=== PATIENT | female | born 1940 | race Caucasian/White ===

== ENCOUNTER 2019-02-16 18:05 | Observation (INO) ==
[2019-02-16] MEDS ORDERED: ENOXAPARIN 30 MG/0.3 ML SYRINGE SUBCUT STA (18:46)
[2019-02-16] MEDS ORDERED: ASPIRIN 325 MG TABLET PO STA (18:46)
[2019-02-16] MEDS ORDERED: NITROGLYCERIN 2% OINT 1 INCH/GM PACK TOP STA (18:47)
[2019-02-16 20:15] LABS: Alanine Aminotransferase 22 U/L (13-56); Albumin 3.1 G/DL (3.4-5.0); Alkaline Phosphatase 92 U/L (45-117); Aspartate Amino Transferase 16 U/L (0-37); Bilirubin,Total < 0.39 MG/DL (0.2-1.0); Blood Urea Nitrogen 22 MG/DL (7-18); Calcium 8.8 MG/DL (8.5-10.1); Glucose 114 MG/DL (74-106); Osmolality,Calculated 282.4 MOS/KG (273-304)
[2019-02-16 20:16] LABS: Basophils # 0.1 10*3/uL (0.0-0.2); Basophils % 0.6 % (0.0-0.8); Eosinophils # 0.3 10*3/uL (0.0-0.87); Eosinophils % 2.8 % (0.00-10.9); Hematocrit 30.5 VOL% (35.7-47.0); Hemoglobin 8.5 GM/DL (12.0-16.0); Immature Granulocytes % 0.7 %; Immature Granulocytes Absolute 0.07 #; Lymphocytes # 3.1 10*3/uL (1.4-4.0); Lymphocytes % 29.8 % (21.3-54.2); Mean Corpuscular HGB Conc 27.9 GM/DL (32-36); Mean Corpuscular Volume 84.5 FL (87-102); Mean Platelet Volume 10.3 FL (9.6-12.0); Monocytes % 7.6 % (1.7-12.7); NRBC # 0.03 10*3/uL; Neutrophils % 58.5 % (38.7-73.9); Platelet Count 378 T/CUMM (130-400); Red Blood Count 3.61 MC/CUMM (3.8-5.5); White Blood Count 10.4 T/CUMM (4-12)
[2019-02-16 20:33] LABS: Anisocytosis 1+; Hypochromasia 2+
[2019-02-16 20:34] LABS: Polychromasia 1+
[2019-02-16 20:35] LABS: Ovalocytes Few
[2019-02-16 20:39] LABS: Platelet Estimate Normal
[2019-02-16] MEDS ORDERED: ONDANSETRON 4 MG/2 ML VIAL IV PRN (20:44)
[2019-02-16] MEDS ORDERED: ACETAMINOPHEN 325 MG TABLET PO PRN (20:44)
[2019-02-16] MEDS ORDERED: PANTOPRAZOLE 40 MG TABLET PO PRN (20:51)
[2019-02-16] MEDS ORDERED: ALBUTEROL 2.5 MG/3 ML NEB RESP TX PRN (20:51)
[2019-02-16] MEDS ORDERED: ONDANSETRON 4 MG TABLET PO PRN (20:51)
[2019-02-16] MEDS: GABAPENTIN 600 MG TABLET PO SCH (22:48)
[2019-02-16] MEDS: PRAMIPEXOLE 0.25 MG TABLET PO SCH (22:48)
[2019-02-16] MEDS: CARVEDILOL 6.25 MG TABLET PO SCH (22:48)
[2019-02-16] MEDS: BUDESONIDE/FORMOTEROL 160-4.5 INHALER 6 GM INH SCH (23:40)
[2019-02-17] MEDS: ENOXAPARIN 100 MG/ML SYRINGE SUBCUT SCH ×2 (05:01→08:49)
[2019-02-17 05:08] LABS: Risk Ratio 2.51; VLDL CHOLESTEROL 35.6 MG/DL
[2019-02-17] MEDS ORDERED: LEVOTHYROXINE 50 MCG TABLET PO SCH (06:00)
[2019-02-17 08:11] VITALS: BP 116/57
[2019-02-17] MEDS: GABAPENTIN 600 MG TABLET PO SCH (08:50)
[2019-02-17] MEDS: PRAMIPEXOLE 0.25 MG TABLET PO SCH (08:50)
[2019-02-17] MEDS: CARVEDILOL 6.25 MG TABLET PO SCH (08:50)
[2019-02-17] MEDS ORDERED: ATORVASTATIN 80 MG TABLET PO SCH (09:00)
[2019-02-17] MEDS ORDERED: LOSARTAN 25 MG TABLET PO SCH (09:00)
[2019-02-17] MEDS ORDERED: ASPIRIN EC 325 MG TABLET PO SCH (09:00)
[2019-02-17] MEDS ORDERED: hydroCHLOROthiazide 25 MG TABLET PO SCH (09:00)
[2019-02-17] MEDS ORDERED: DILTIAZEM CD 240 MG CAPSULE PO SCH (09:00)
[2019-02-17] MEDS: BUDESONIDE/FORMOTEROL 160-4.5 INHALER 6 GM INH SCH (10:05)
[2019-02-18] MEDS ORDERED: NITROGLYCERIN 2% OINT 1 INCH/GM PACK TOP SCH (02:00)
== END 2019-02-17 10:58 | disposition home or self-care (01) ==
LOC: N.TELEN 18:05 → N.ED 18:05 → N.TELEN 22:04
PROVIDERS: ADMIT Internal Medicine; ATTEND Internal Medicine

== ENCOUNTER 2019-06-12 18:15 | Inpatient (IN) ==
[2019-06-12] MEDS ORDERED: ONDANSETRON 4 MG/2 ML VIAL IV STA (19:34)
[2019-06-12 20:33] LABS: Basophils # 0.1 10*3/uL (0.0-0.2); Basophils % 0.8 % (0.0-0.8); Eosinophils # 0.2 10*3/uL (0.0-0.87); Eosinophils % 1.9 % (0.00-10.9); Hematocrit 26.3 VOL% (35.7-47.0); Immature Granulocytes % 0.5 %; Immature Granulocytes Absolute 0.06 #; Lymphocytes # 3.5 10*3/uL (1.4-4.0); Lymphocytes % 28.5 % (21.3-54.2); Mean Corpuscular HGB Conc 23.6 GM/DL (32-36); Mean Corpuscular Volume 73.1 FL (87-102); Mean Platelet Volume 10.7 FL (9.6-12.0); Monocytes % 7.6 % (1.7-12.7); NRBC # 0.13 10*3/uL; Neutrophils % 60.7 % (38.7-73.9); Platelet Count 357 T/CUMM (130-400); Red Cell Distribution Width 21.2 % (9.3-17.3); White Blood Count 12.2 T/CUMM (4-12)
[2019-06-12 20:45] LABS: Albumin 2.8 G/DL (3.4-5.0); Bilirubin,Total 0.5 MG/DL (0.2-1.0); Calcium 8.4 MG/DL (8.5-10.1); Total Protein 5.8 G/DL (6.4-8.3)
[2019-06-12 20:47] LABS: Hemoglobin 6.2 GM/DL (12.0-16.0); Troponin I < 0.015 NG/ML (0.00-0.045)
[2019-06-12] MEDS ORDERED: PHENYLEPHRINE DRIP 40 MG/250 ML PREMIX IV PRN (20:54)
[2019-06-12 21:02] LABS: Apearance,Urine CLEAR (Clear); Bacteria,Urine Few /HPF (Few); Bilirubin,Urine Negative (Negative); Blood, Urine Negative (Negative); Glucose,Urine (UA) Negative (Negative); Hyaline Casts,Urine 70 /LPF (0-3); Ketones,Urine Negative (Negative); Mucus,Urine Occasional /LPF (Occasional); Nitrite,Urine Positive (Negative); Protein,Urine Negative; RBC,Urine 1 /HPF (0-4); Squamous Epithelial Cell,Urine Occasional /HPF (0-10); Urine Color Yellow (Yellow); Urine Specific Gravity 1.013 (1.001-1.035); Urine Urobilinogen < 2.0 EU/DL (0.2-1.0); WBC,Urine 1 /HPF (0-6)
[2019-06-12 21:06] LABS: INR 1.1; PT Patient Result 11.4 SECS (9.6-12.2)
[2019-06-12] MEDS ORDERED: cefTRIAXone 1,000 MG in SODIUM CHLORIDE 0.9% 100 ML IV STA (21:18)
[2019-06-12 21:34] LABS: ABG Base Excess 14.1 MMOL/L (-2.5-2.5); ABG HCO3 43.4 MMOL/L (20-26); ABG Oxygen Saturation 91.7 % (95-100); ABG PH 7.239 (7.35-7.45); ABG PO2 78.2 MM HG (80-95); ABG TCO2 46.6 MMOL/L (23-27); Allen Test Positive
[2019-06-12 21:37] LABS: ABG PCO2 103.9 MM HG (35-48)
[2019-06-12] MEDS ORDERED: MORPHINE 4 MG/1 ML VIAL IV PRN (22:00)
[2019-06-12] MEDS ORDERED: ONDANSETRON 4 MG/2 ML VIAL IV PRN (22:00)
[2019-06-12] MEDS ORDERED: NICOTINE 21 MG/24 HR PATCH TRANSDERM PRN (22:00)
[2019-06-12] MEDS ORDERED: diphenhydrAMINE CAP 25 MG CAPSULE PO PRN (22:00)
[2019-06-12] MEDS ORDERED: SODIUM CHLORIDE 0.9% 1,000 ML IV PRN (22:00)
[2019-06-12] MEDS ORDERED: guaiFENesin/DM ER 600-30 MG TABLET PO PRN (22:00)
[2019-06-12 22:30] LABS: Anisocytosis 1+; Hypochromasia 3+; Microcytosis 2+; Platelet Estimate Normal; Poikilocytosis 2+
[2019-06-12 22:31] LABS: Ovalocytes 1+; Polychromasia 2+; Stomatocytes 1+
[2019-06-12 22:32] LABS: Schistocytes Few; Tear Drop Cells Few
[2019-06-12] MEDS ORDERED: ETOMIDATE 20 MG/10 ML VIAL IV ONE (22:53)
[2019-06-12] MEDS ORDERED: VECURONIUM 10 MG VIAL IV ONE (22:53)
[2019-06-12] MEDS ORDERED: PROPOFOL 1,000 MG/100 ML BOTTLE IV ONE (23:28)
[2019-06-12] MEDS: PROPOFOL 1,000 MG/100 ML BOTTLE IV SCH (23:33)
[2019-06-12 23:41] LABS: ABG Base Excess 15.2 MMOL/L (-2.5-2.5); ABG HCO3 39.1 MMOL/L (20-26); ABG PCO2 54.9 MM HG (35-48); ABG PH 7.478 (7.35-7.45); ABG TCO2 38.7 MMOL/L (23-27); Allen Test Positive; Pt O2 Delivery Device Ventilator
[2019-06-13] MEDS: FUROSEMIDE 40 MG/4 ML VIAL IV SCH ×3 (00:19→15:38)
[2019-06-13 00:31] LABS: Hematocrit 25.2 VOL% (35.7-47.0); Hemoglobin 6.9 GM/DL (12.0-16.0); Mean Corpuscular HGB Conc 27.4 GM/DL (32-36); Mean Corpuscular Volume 75.4 FL (87-102); Mean Platelet Volume 11.5 FL (9.6-12.0); NRBC # 0.09 10*3/uL; Platelet Count 318 T/CUMM (130-400); Red Blood Count 3.34 MC/CUMM (3.8-5.5); Red Cell Distribution Width 21.4 % (9.3-17.3); White Blood Count 9.2 T/CUMM (4-12)
[2019-06-13] MEDS: ALBUTEROL/IPRATROPIUM 3 ML NEB RESP TX SCH ×4 (00:36→19:17)
[2019-06-13] MEDS: AZITHROMYCIN INJ 500 MG in SODIUM CHLORIDE 0.9% 250 ML IV SCH (00:38)
[2019-06-13 01:33] LABS: Apearance,Urine CLEAR (Clear); Bilirubin,Urine Negative (Negative); Blood, Urine Negative (Negative); Glucose,Urine (UA) Negative (Negative); Hyaline Casts,Urine 4 /LPF (0-3); Ketones,Urine Negative (Negative); Mucus,Urine Occasional /LPF (Occasional); Nitrite,Urine Negative (Negative); Protein,Urine Negative; RBC,Urine 1 /HPF (0-4); Squamous Epithelial Cell,Urine Occasional /HPF (0-10); Urine Color Colorless (Yellow); Urine Specific Gravity 1.005 (1.001-1.035); Urine Urobilinogen < 2.0 EU/DL (0.2-1.0); WBC,Urine <1 /HPF (0-6)
[2019-06-13] MEDS ORDERED: INFLUENZA VIRUS VACCINE 0.5 ML SYRINGE IM ONE (01:35)
[2019-06-13] MEDS: MEROPENEM 500 MG in SODIUM CHLORIDE 0.9% 100 ML IV SCH ×4 (02:02→17:53)
[2019-06-13] MEDS: VANCOMYCIN INJ 1,750 MG in SODIUM CHLORIDE 0.9% 500 ML IV SCH ×2 (03:11→15:11)
[2019-06-13 03:28] LABS: ABG Base Excess 16.3 MMOL/L (-2.5-2.5); ABG HCO3 40.3 MMOL/L (20-26); ABG Oxygen Saturation 99.2 % (95-100); ABG PCO2 51.5 MM HG (35-48); ABG PH 7.515 (7.35-7.45); ABG TCO2 38.7 MMOL/L (23-27); Allen Test Positive; Pt O2 Delivery Device Ventilator
[2019-06-13] MEDS: fentaNYL INJ 1,250 MCG in SODIUM CHLORIDE 0.9% 225 ML IV PRN ×2 (03:45→13:20)
[2019-06-13 05:23] LABS: Albumin 2.6 G/DL (3.4-5.0); Bilirubin,Total 0.8 MG/DL (0.2-1.0); Calcium 8.7 MG/DL (8.5-10.1); Osmolality,Calculated 284.1 MOS/KG (273-304); Total Protein 6.2 G/DL (6.4-8.3)
[2019-06-13 05:44] LABS: Basophils # 0.1 10*3/uL (0.0-0.2); Basophils % 0.5 % (0.0-0.8); Eosinophils # 0.2 10*3/uL (0.0-0.87); Eosinophils % 1.5 % (0.00-10.9); Hematocrit 30.1 VOL% (35.7-47.0); Hemoglobin 7.8 GM/DL (12.0-16.0); Immature Granulocytes % 0.7 %; Immature Granulocytes Absolute 0.08 #; Lymphocytes # 3.9 10*3/uL (1.4-4.0); Lymphocytes % 32.9 % (21.3-54.2); Mean Corpuscular HGB Conc 25.9 GM/DL (32-36); Mean Corpuscular Volume 73.6 FL (87-102); Mean Platelet Volume 11.6 FL (9.6-12.0); Monocytes % 6.8 % (1.7-12.7); NRBC # 0.11 10*3/uL; Neutrophils % 57.6 % (38.7-73.9); Platelet Count 304 T/CUMM (130-400); Red Blood Count 4.09 MC/CUMM (3.8-5.5); Red Cell Distribution Width 21.2 % (9.3-17.3); White Blood Count 11.8 T/CUMM (4-12)
[2019-06-13 05:47] LABS: Hypochromasia 2+; Platelet Estimate Adequate
[2019-06-13 05:48] LABS: Ovalocytes Slight
[2019-06-13 06:50] LABS: Folate 17.7 NG/ML (5.4-24.0); Vitamin B12 387 PG/ML (211-911)
[2019-06-13] MEDS: PROPOFOL 1,000 MG/100 ML BOTTLE IV SCH ×3 (06:55→23:32)
[2019-06-13 08:20] LABS: Sedimentation Rate-Westergren 21 MM/HR (0-30)
[2019-06-13] MEDS: methylPREDNISolone SOD SUC 40 MG/1 ML VIAL IV SCH ×2 (08:45→15:43)
[2019-06-13] MEDS: ENOXAPARIN 40 MG/0.4 ML SYRINGE SUBCUT SCH (08:54)
[2019-06-13] MEDS: FAMOTIDINE 20 MG/2 ML VIAL IV SCH ×2 (08:54→21:17)
[2019-06-13] MEDS ORDERED: fentaNYL INJ 1,250 MCG in SODIUM CHLORIDE 0.9% 225 ML IV PRN (12:54)
[2019-06-13] MEDS ORDERED: cefTRIAXone 1,000 MG in SYRINGE 1 EACH IV SCH (22:00)
[2019-06-14] MEDS: ALBUTEROL/IPRATROPIUM 3 ML NEB RESP TX SCH ×4 (00:23→20:59)
[2019-06-14] MEDS: MEROPENEM 500 MG in SODIUM CHLORIDE 0.9% 100 ML IV SCH ×2 (00:24→06:25)
[2019-06-14] MEDS: AZITHROMYCIN INJ 500 MG in SODIUM CHLORIDE 0.9% 250 ML IV SCH (00:25)
[2019-06-14] MEDS: methylPREDNISolone SOD SUC 40 MG/1 ML VIAL IV SCH ×3 (00:25→16:29)
[2019-06-14] MEDS: VANCOMYCIN INJ 1,750 MG in SODIUM CHLORIDE 0.9% 500 ML IV SCH (03:28)
[2019-06-14 04:34] LABS: ABG Base Excess 13.4 MMOL/L (-2.5-2.5); ABG HCO3 36.9 MMOL/L (20-26); ABG Oxygen Saturation 97.6 % (95-100); ABG PCO2 42.3 MM HG (35-48); ABG PH 7.559 (7.35-7.45); ABG PO2 96.4 MM HG (80-95); ABG TCO2 38.2 MMOL/L (23-27); Allen Test Positive; Pt O2 Delivery Device Ventilator
[2019-06-14 05:10] LABS: Basophils % 0.1 % (0.0-0.8); Hematocrit 35.4 VOL% (35.7-47.0); Immature Granulocytes % 0.4 %; Immature Granulocytes Absolute 0.04 #; Lymphocytes # 1.4 10*3/uL (1.4-4.0); Lymphocytes % 13.2 % (21.3-54.2); Mean Corpuscular HGB Conc 28.2 GM/DL (32-36); Mean Corpuscular Volume 73.3 FL (87-102); Mean Platelet Volume 11.3 FL (9.6-12.0); Monocytes % 3.9 % (1.7-12.7); NRBC # 0.06 10*3/uL; Neutrophils % 82.4 % (38.7-73.9); Platelet Count 283 T/CUMM (130-400); Red Blood Count 4.83 MC/CUMM (3.8-5.5); Red Cell Distribution Width 23.1 % (9.3-17.3); White Blood Count 10.6 T/CUMM (4-12)
[2019-06-14 05:19] LABS: Hypochromasia 1+; Platelet Estimate Adequate
[2019-06-14 05:20] LABS: Calcium 8.6 MG/DL (8.5-10.1); Osmolality,Calculated 291.1 MOS/KG (273-304)
[2019-06-14] MEDS: POTASSIUM CHLORIDE RIDER 10 MEQ in PREMIX 1 EACH IV PRN ×3 (05:48→07:55)
[2019-06-14] MEDS: FAMOTIDINE 20 MG/2 ML VIAL IV SCH ×2 (07:46→20:09)
[2019-06-14] MEDS: FUROSEMIDE 40 MG/4 ML VIAL IV SCH ×2 (07:48→16:25)
[2019-06-14] MEDS: ENOXAPARIN 40 MG/0.4 ML SYRINGE SUBCUT SCH (07:55)
[2019-06-14] MEDS: AZITHROMYCIN 250 MG TABLET PO SCH (09:50)
[2019-06-14] MEDS: POTASSIUM CHLORIDE 20 MEQ TABLET PO SCH ×3 (09:50→16:30)
[2019-06-14] MEDS: ATORVASTATIN 80 MG TABLET PO SCH (09:50)
[2019-06-14] MEDS: LOSARTAN 25 MG TABLET PO SCH (09:50)
[2019-06-14] MEDS: cefTRIAXone 1,000 MG in SYRINGE 1 EACH IV SCH (09:51)
[2019-06-14] MEDS: GABAPENTIN 600 MG TABLET PO SCH (20:13)
[2019-06-14] MEDS: PRAMIPEXOLE 0.25 MG TABLET PO SCH (20:13)
[2019-06-15] MEDS: ALBUTEROL/IPRATROPIUM 3 ML NEB RESP TX SCH ×4 (01:27→18:44)
[2019-06-15] MEDS: methylPREDNISolone SOD SUC 40 MG/1 ML VIAL IV SCH ×3 (01:38→20:16)
[2019-06-15 06:01] LABS: Calcium 8.8 MG/DL (8.5-10.1); Osmolality,Calculated 300.7 MOS/KG (273-304)
[2019-06-15 06:28] LABS: Basophils % 0.1 % (0.0-0.8); Hemoglobin 10.4 GM/DL (12.0-16.0); Immature Granulocytes % 0.9 %; Immature Granulocytes Absolute 0.14 #; Lymphocytes # 1.1 10*3/uL (1.4-4.0); Lymphocytes % 6.6 % (21.3-54.2); Mean Corpuscular HGB Conc 26.6 GM/DL (32-36); Mean Corpuscular Volume 78.4 FL (87-102); Monocytes % 3.7 % (1.7-12.7); NRBC # 0.08 10*3/uL; Neutrophils % 88.7 % (38.7-73.9); Platelet Count 303 T/CUMM (130-400); Red Blood Count 4.99 MC/CUMM (3.8-5.5); Red Cell Distribution Width 23.2 % (9.3-17.3); White Blood Count 16.1 T/CUMM (4-12)
[2019-06-15 06:29] LABS: Hematocrit 39.1 VOL% (35.7-47.0)
[2019-06-15 06:31] LABS: Elliptocytes 1+; Hypochromasia 1+; Platelet Estimate Normal; Stomatocytes Few; Target Cells Few
[2019-06-15 06:32] LABS: Schistocytes Few
[2019-06-15] MEDS: DOCUSATE SODIUM 100 MG CAPSULE PO PRN (09:36)
[2019-06-15] MEDS: GABAPENTIN 600 MG TABLET PO SCH ×3 (09:37→20:14)
[2019-06-15] MEDS: AZITHROMYCIN 250 MG TABLET PO SCH (09:37)
[2019-06-15] MEDS: LOSARTAN 25 MG TABLET PO SCH (09:37)
[2019-06-15] MEDS: ATORVASTATIN 80 MG TABLET PO SCH (09:38)
[2019-06-15] MEDS: PRAMIPEXOLE 0.25 MG TABLET PO SCH ×3 (09:38→20:14)
[2019-06-15] MEDS: PANTOPRAZOLE 40 MG TABLET PO SCH (09:39)
[2019-06-15] MEDS: FUROSEMIDE 40 MG/4 ML VIAL IV SCH ×2 (09:39→16:35)
[2019-06-15] MEDS: cefTRIAXone 1,000 MG in SYRINGE 1 EACH IV SCH (09:43)
[2019-06-15] MEDS: ENOXAPARIN 40 MG/0.4 ML SYRINGE SUBCUT SCH (09:43)
[2019-06-16] MEDS: LACTULOSE 20 GM/30 ML UDCUP PO PRN ×2 (04:46→09:40)
[2019-06-16 05:16] LABS: Calcium 9.1 MG/DL (8.5-10.1); Osmolality,Calculated 303.7 MOS/KG (273-304)
[2019-06-16 05:35] LABS: Basophils % 0.1 % (0.0-0.8); Hematocrit 39.4 VOL% (35.7-47.0); Hemoglobin 10.3 GM/DL (12.0-16.0); Immature Granulocytes % 0.5 %; Immature Granulocytes Absolute 0.07 #; Lymphocytes # 1.1 10*3/uL (1.4-4.0); Lymphocytes % 7.4 % (21.3-54.2); Mean Corpuscular HGB Conc 26.1 GM/DL (32-36); Mean Corpuscular Volume 78.6 FL (87-102); Mean Platelet Volume 11.2 FL (9.6-12.0); Platelet Count 264 T/CUMM (130-400); Red Blood Count 5.01 MC/CUMM (3.8-5.5); Red Cell Distribution Width 23.3 % (9.3-17.3); White Blood Count 14.1 T/CUMM (4-12)
[2019-06-16 06:06] LABS: Platelet Estimate Normal; Polychromasia Few
[2019-06-16] MEDS: ALBUTEROL/IPRATROPIUM 3 ML NEB RESP TX SCH ×3 (07:15→19:53)
[2019-06-16] MEDS: FUROSEMIDE 40 MG/4 ML VIAL IV SCH ×2 (07:46→16:06)
[2019-06-16] MEDS: methylPREDNISolone SOD SUC 40 MG/1 ML VIAL IV SCH ×2 (07:49→20:18)
[2019-06-16] MEDS: cefTRIAXone 1,000 MG in SYRINGE 1 EACH IV SCH (09:35)
[2019-06-16] MEDS: ENOXAPARIN 40 MG/0.4 ML SYRINGE SUBCUT SCH (09:39)
[2019-06-16] MEDS: PRAMIPEXOLE 0.25 MG TABLET PO SCH ×3 (09:42→20:19)
[2019-06-16] MEDS: AZITHROMYCIN 250 MG TABLET PO SCH (09:42)
[2019-06-16] MEDS: GABAPENTIN 600 MG TABLET PO SCH ×3 (09:42→20:19)
[2019-06-16] MEDS: LOSARTAN 25 MG TABLET PO SCH (09:43)
[2019-06-16] MEDS: DOCUSATE SODIUM 100 MG CAPSULE PO PRN (09:43)
[2019-06-16] MEDS: ATORVASTATIN 80 MG TABLET PO SCH (09:43)
[2019-06-16] MEDS: PANTOPRAZOLE 40 MG TABLET PO SCH (09:43)
[2019-06-17] MEDS: ALBUTEROL/IPRATROPIUM 3 ML NEB RESP TX SCH ×4 (01:52→20:35)
[2019-06-17 06:19] LABS: Calcium 8.5 MG/DL (8.5-10.1); Osmolality,Calculated 297.8 MOS/KG (273-304)
[2019-06-17 06:55] LABS: Basophils % 0.1 % (0.0-0.8); Hematocrit 39.6 VOL% (35.7-47.0); Hemoglobin 10.1 GM/DL (12.0-16.0); Immature Granulocytes % 1.1 %; Immature Granulocytes Absolute 0.11 #; Lymphocytes # 0.8 10*3/uL (1.4-4.0); Lymphocytes % 7.9 % (21.3-54.2); Mean Corpuscular HGB Conc 25.5 GM/DL (32-36); Mean Corpuscular Volume 80.3 FL (87-102); Mean Platelet Volume 10.8 FL (9.6-12.0); Monocytes % 7.2 % (1.7-12.7); NRBC # 0.12 10*3/uL; Neutrophils % 83.7 % (38.7-73.9); Platelet Count 264 T/CUMM (130-400); Red Blood Count 4.93 MC/CUMM (3.8-5.5); Red Cell Distribution Width 23.4 % (9.3-17.3); White Blood Count 10.2 T/CUMM (4-12)
[2019-06-17 07:17] LABS: Hypochromasia 1+; Platelet Estimate Adequate
[2019-06-17] MEDS: cefTRIAXone 1,000 MG in SYRINGE 1 EACH IV SCH (09:00)
[2019-06-17] MEDS: PRAMIPEXOLE 0.25 MG TABLET PO SCH ×3 (09:01→21:00)
[2019-06-17] MEDS: GABAPENTIN 600 MG TABLET PO SCH ×3 (09:02→21:00)
[2019-06-17] MEDS: PANTOPRAZOLE 40 MG TABLET PO SCH (09:02)
[2019-06-17] MEDS: LOSARTAN 25 MG TABLET PO SCH (09:03)
[2019-06-17] MEDS: ATORVASTATIN 80 MG TABLET PO SCH (09:03)
[2019-06-17] MEDS: methylPREDNISolone SOD SUC 40 MG/1 ML VIAL IV SCH ×2 (09:07→20:59)
[2019-06-17] MEDS: FUROSEMIDE 40 MG/4 ML VIAL IV SCH ×2 (09:12→16:21)
[2019-06-17] MEDS: ENOXAPARIN 40 MG/0.4 ML SYRINGE SUBCUT SCH (09:14)
[2019-06-17] MEDS: POTASSIUM CHLORIDE RIDER 10 MEQ in PREMIX 1 EACH IV PRN ×4 (09:17→14:37)
[2019-06-17] MEDS: ACETAMINOPHEN 325 MG TABLET PO PRN (14:43)
[2019-06-17 17:47] LABS: ABG Base Excess 8.8 MMOL/L (-2.5-2.5); ABG HCO3 32.6 MMOL/L (20-26); ABG PH 7.321 (7.35-7.45); ABG TCO2 34.2 MMOL/L (23-27); Allen Test Positive
[2019-06-17 17:49] LABS: ABG PCO2 73.1 MM HG (35-48)
[2019-06-17] MEDS: MEROPENEM 500 MG in SODIUM CHLORIDE 0.9% 100 ML IV SCH (21:00)
[2019-06-18] MEDS: ALBUTEROL/IPRATROPIUM 3 ML NEB RESP TX SCH ×4 (00:20→19:38)
[2019-06-18] MEDS: MEROPENEM 500 MG in SODIUM CHLORIDE 0.9% 100 ML IV SCH ×4 (02:59→21:22)
[2019-06-18 06:01] LABS: Calcium 8.6 MG/DL (8.5-10.1); Osmolality,Calculated 299.8 MOS/KG (273-304)
[2019-06-18] MEDS: ATORVASTATIN 80 MG TABLET PO SCH (08:22)
[2019-06-18] MEDS: PRAMIPEXOLE 0.25 MG TABLET PO SCH ×3 (08:22→21:22)
[2019-06-18] MEDS: GABAPENTIN 600 MG TABLET PO SCH ×3 (08:22→21:22)
[2019-06-18] MEDS: LOSARTAN 25 MG TABLET PO SCH (08:23)
[2019-06-18] MEDS: PANTOPRAZOLE 40 MG TABLET PO SCH (08:23)
[2019-06-18] MEDS: ENOXAPARIN 40 MG/0.4 ML SYRINGE SUBCUT SCH (08:23)
[2019-06-18] MEDS: FUROSEMIDE 40 MG/4 ML VIAL IV SCH ×2 (08:26→15:49)
[2019-06-18] MEDS: methylPREDNISolone SOD SUC 40 MG/1 ML VIAL IV SCH ×2 (08:27→20:05)
[2019-06-18] MEDS: cefTRIAXone 1,000 MG in SYRINGE 1 EACH IV SCH (08:30)
[2019-06-19] MEDS: ALBUTEROL/IPRATROPIUM 3 ML NEB RESP TX SCH ×4 (00:47→19:18)
[2019-06-19] MEDS: MEROPENEM 500 MG in SODIUM CHLORIDE 0.9% 100 ML IV SCH ×4 (02:34→20:59)
[2019-06-19 05:15] LABS: Calcium 8.7 MG/DL (8.5-10.1)
[2019-06-19] MEDS: GABAPENTIN 600 MG TABLET PO SCH ×3 (08:15→20:46)
[2019-06-19] MEDS: PRAMIPEXOLE 0.25 MG TABLET PO SCH ×3 (08:15→20:46)
[2019-06-19] MEDS: PANTOPRAZOLE 40 MG TABLET PO SCH (08:15)
[2019-06-19] MEDS: LOSARTAN 25 MG TABLET PO SCH (08:16)
[2019-06-19] MEDS: ATORVASTATIN 80 MG TABLET PO SCH (08:16)
[2019-06-19] MEDS: ENOXAPARIN 40 MG/0.4 ML SYRINGE SUBCUT SCH (08:16)
[2019-06-19] MEDS: FUROSEMIDE 40 MG/4 ML VIAL IV SCH ×2 (08:17→15:13)
[2019-06-19] MEDS: methylPREDNISolone SOD SUC 40 MG/1 ML VIAL IV SCH ×2 (08:18→20:49)
[2019-06-19] MEDS: cefTRIAXone 1,000 MG in SYRINGE 1 EACH IV SCH (08:38)
[2019-06-19 10:37] LABS: Basophils % 0.2 % (0.0-0.8); Eosinophils # 0.1 10*3/uL (0.0-0.87); Eosinophils % 0.4 % (0.00-10.9); Hematocrit 42.1 VOL% (35.7-47.0); Immature Granulocytes % 1.2 %; Immature Granulocytes Absolute 0.14 #; Lymphocytes # 1.7 10*3/uL (1.4-4.0); Lymphocytes % 14.4 % (21.3-54.2); Mean Corpuscular HGB Conc 25.4 GM/DL (32-36); Mean Corpuscular Volume 80.7 FL (87-102); Mean Platelet Volume 10.7 FL (9.6-12.0); Monocytes % 7.4 % (1.7-12.7); NRBC # 0.05 10*3/uL; Neutrophils % 76.4 % (38.7-73.9); Platelet Count 257 T/CUMM (130-400); Red Blood Count 5.22 MC/CUMM (3.8-5.5); Red Cell Distribution Width 23.9 % (9.3-17.3)
[2019-06-19 10:38] LABS: Hemoglobin 10.7 GM/DL (12.0-16.0)
[2019-06-19 10:41] LABS: Hypochromasia 1+; Microcytosis 1+; Polychromasia Slight
[2019-06-19 10:42] LABS: Acanthocytes Few; Elliptocytes Few; Platelet Estimate Normal; Spherocytes Slight
[2019-06-19] MEDS: ACETAMINOPHEN 325 MG TABLET PO PRN (15:17)
[2019-06-20] MEDS: ALBUTEROL/IPRATROPIUM 3 ML NEB RESP TX SCH ×3 (01:22→13:28)
[2019-06-20] MEDS: MEROPENEM 500 MG in SODIUM CHLORIDE 0.9% 100 ML IV SCH (03:41)
[2019-06-20] MEDS: PRAMIPEXOLE 0.25 MG TABLET PO SCH ×2 (09:41→14:38)
[2019-06-20] MEDS: LOSARTAN 25 MG TABLET PO SCH (09:42)
[2019-06-20] MEDS: GABAPENTIN 600 MG TABLET PO SCH ×2 (09:42→14:38)
[2019-06-20] MEDS: ATORVASTATIN 80 MG TABLET PO SCH (09:42)
[2019-06-20] MEDS: FUROSEMIDE 40 MG/4 ML VIAL IV SCH (09:43)
[2019-06-20] MEDS: methylPREDNISolone SOD SUC 40 MG/1 ML VIAL IV SCH (09:43)
[2019-06-20] MEDS: PANTOPRAZOLE 40 MG TABLET PO SCH (09:43)
[2019-06-20] MEDS: ENOXAPARIN 40 MG/0.4 ML SYRINGE SUBCUT SCH (09:44)
[2019-06-20 16:27] VITALS: BP 175/97
== END 2019-06-20 16:00 | disposition hospice, home (50) | DRG 208 ==
LOC: N.ED 18:15 → SUATTDRO 22:30 → N.EDINP 22:30 → N.ICU 22:58 → N.3E 06-15 17:34
PROVIDERS: ADMIT Internal Medicine; ATTEND Internal Medicine

== ENCOUNTER 2019-09-08 05:41 | Inpatient (IN) ==
[2019-09-08] MEDS ORDERED: hydrALAZINE 20 MG/1 ML VIAL IV STA (06:21)
[2019-09-08 07:04] LABS: Basophils # 0.1 10*3/uL (0.0-0.2); Basophils % 0.9 % (0.0-0.8); Eosinophils # 0.2 10*3/uL (0.0-0.87); Eosinophils % 2.3 % (0.00-10.9); Hematocrit 43.8 VOL% (35.7-47.0); Hemoglobin 13.3 GM/DL (12.0-16.0); Immature Granulocytes % 0.5 %; Immature Granulocytes Absolute 0.04 #; Lymphocytes # 3.1 10*3/uL (1.4-4.0); Lymphocytes % 38.4 % (21.3-54.2); Mean Corpuscular HGB Conc 30.4 GM/DL (32-36); Monocytes % 7.2 % (1.7-12.7); Neutrophils % 50.7 % (38.7-73.9); Platelet Count 268 T/CUMM (130-400); Red Blood Count 4.71 MC/CUMM (3.8-5.5); Red Cell Distribution Width 20.8 % (9.3-17.3)
[2019-09-08 07:14] LABS: PT Patient Result 10.7 SECS (9.6-12.2)
[2019-09-08 07:20] LABS: Calcium 9.1 MG/DL (8.5-10.1); Osmolality,Calculated 275.7 MOS/KG (273-304)
[2019-09-08] MEDS ORDERED: ONDANSETRON 4 MG/2 ML VIAL ONE (07:40)
[2019-09-08] MEDS ORDERED: ONDANSETRON 4 MG/2 ML VIAL IV STA (07:40)
[2019-09-08 08:09] LABS: Sedimentation Rate-Westergren 20 MM/HR (0-30)
[2019-09-08] MEDS ORDERED: GLUCAGON 1 MG VIAL IM PRN (08:27)
[2019-09-08] MEDS ORDERED: DEXTROSE 50% 25 GM/50 ML VIAL IV PRN (08:27)
[2019-09-08] MEDS: DOCUSATE SODIUM 100 MG CAPSULE PO SCH ×2 (09:36→21:47)
[2019-09-08] MEDS: SODIUM CHLORIDE 0.45% 1,000 ML IV SCH (09:36)
[2019-09-08] MEDS: PANTOPRAZOLE 40 MG TABLET PO SCH (09:36)
[2019-09-08] MEDS: ENOXAPARIN 40 MG/0.4 ML SYRINGE SUBCUT SCH (09:36)
[2019-09-08] MEDS ORDERED: LORazepam 1 MG TABLET PO ONE (11:11)
[2019-09-08] MEDS ORDERED: traMADol 50 MG TABLET PO PRN (11:33)
[2019-09-08] MEDS: LEVOTHYROXINE 50 MCG TABLET PO SCH (11:57)
[2019-09-08] MEDS: ATORVASTATIN 40 MG TABLET PO SCH (11:57)
[2019-09-08] MEDS: carvediloL 6.25 MG TABLET PO SCH ×2 (11:57→21:47)
[2019-09-08] MEDS: FUROSEMIDE 40 MG TABLET PO SCH (11:57)
[2019-09-08] MEDS: LOSARTAN 25 MG TABLET PO SCH (11:59)
[2019-09-08] MEDS: INSULIN LISPRO 100 UNIT/ML SUBCUT SCH ×3 (12:04→21:47)
[2019-09-08] MEDS: ONDANSETRON 4 MG/2 ML VIAL IV PRN (15:32)
[2019-09-08] MEDS: GABAPENTIN 600 MG TABLET PO SCH ×2 (16:15→21:47)
[2019-09-08] MEDS: PRAMIPEXOLE 0.25 MG TABLET PO SCH ×2 (16:15→21:46)
[2019-09-08] MEDS: MAGNESIUM OXIDE 400 MG TABLET PO SCH (21:46)
[2019-09-08] MEDS: BUDESONIDE/FORMOTEROL 160-4.5 INHALER 6 GM INH SCH (21:50)
[2019-09-09] MEDS: SODIUM CHLORIDE 0.45% 1,000 ML IV SCH ×2 (04:37→14:45)
[2019-09-09 04:49] LABS: Calcium 8.6 MG/DL (8.5-10.1); Osmolality,Calculated 276.7 MOS/KG (273-304)
[2019-09-09 05:00] LABS: Basophils # 0.1 10*3/uL (0.0-0.2); Basophils % 0.6 % (0.0-0.8); Eosinophils # 0.1 10*3/uL (0.0-0.87); Eosinophils % 1.6 % (0.00-10.9); Immature Granulocytes % 0.6 %; Immature Granulocytes Absolute 0.05 #; Lymphocytes # 2.9 10*3/uL (1.4-4.0); Lymphocytes % 32.5 % (21.3-54.2); Mean Corpuscular HGB Conc 29.8 GM/DL (32-36); Mean Corpuscular Volume 94.7 FL (87-102); Mean Platelet Volume 10.8 FL (9.6-12.0); Monocytes % 7.5 % (1.7-12.7); Neutrophils % 57.2 % (38.7-73.9); Platelet Count 276 T/CUMM (130-400); Red Blood Count 4.33 MC/CUMM (3.8-5.5); Red Cell Distribution Width 21.1 % (9.3-17.3)
[2019-09-09 05:01] LABS: Hemoglobin 12.2 GM/DL (12.0-16.0)
[2019-09-09] MEDS: INSULIN LISPRO 100 UNIT/ML SUBCUT SCH ×4 (07:52→19:49)
[2019-09-09] MEDS: ENOXAPARIN 40 MG/0.4 ML SYRINGE SUBCUT SCH (08:52)
[2019-09-09] MEDS: BUDESONIDE/FORMOTEROL 160-4.5 INHALER 6 GM INH SCH (08:52)
[2019-09-09] MEDS: DOCUSATE SODIUM 100 MG CAPSULE PO SCH (08:52)
[2019-09-09] MEDS: FUROSEMIDE 40 MG TABLET PO SCH (08:52)
[2019-09-09] MEDS: LOSARTAN 25 MG TABLET PO SCH (08:53)
[2019-09-09] MEDS: LEVOTHYROXINE 50 MCG TABLET PO SCH (08:53)
[2019-09-09] MEDS: MAGNESIUM OXIDE 400 MG TABLET PO SCH (08:53)
[2019-09-09] MEDS: GABAPENTIN 600 MG TABLET PO SCH ×2 (08:53→14:45)
[2019-09-09] MEDS: FERROUS SULFATE 325 MG TABLET PO SCH (08:53)
[2019-09-09] MEDS: ATORVASTATIN 40 MG TABLET PO SCH (08:53)
[2019-09-09] MEDS: PANTOPRAZOLE 40 MG TABLET PO SCH (08:53)
[2019-09-09] MEDS: PRAMIPEXOLE 0.25 MG TABLET PO SCH ×2 (08:53→14:45)
[2019-09-09] MEDS: FENOFIBRATE 160 MG TABLET PO SCH (08:53)
[2019-09-09] MEDS: carvediloL 6.25 MG TABLET PO SCH (08:54)
[2019-09-09] MEDS: POTASSIUM CHLORIDE 20 MEQ TABLET PO SCH (08:54)
[2019-09-09] MEDS ORDERED: POTASSIUM CHLORIDE 20 MEQ TABLET PO SCH (09:00)
[2019-09-09] MEDS: BUTALBITAL/ACETAMIN/CAFFEINE 50-325-40 MG TABLET PO PRN (12:47)
[2019-09-09 20:34] LABS: Hemoglobin 12.2 GM/DL (12.0-16.0); Red Cell Distribution Width 20.7 % (9.3-17.3)
[2019-09-09 20:44] LABS: PT Patient Result 10.4 SECS (9.6-12.2); Partial Thromboplastin Time 27.3 SECS (20.8-36.0)
[2019-09-09 20:51] LABS: Alanine Aminotransferase 21 U/L (13-56); Albumin 3.2 G/DL (3.4-5.0); Alkaline Phosphatase 53 U/L (45-117); Aspartate Amino Transferase 28 U/L (0-37); Bilirubin,Total < 0.39 MG/DL (0.2-1.0); Blood Urea Nitrogen 15 MG/DL (7-18); Calcium 8.3 MG/DL (8.5-10.1); Estimated Glom Filtration Rate 72 ML/MIN; Glucose 104 MG/DL (74-106); Osmolality,Calculated 273.8 MOS/KG (273-304); Total Protein 6.6 G/DL (6.4-8.3)
[2019-09-09 20:52] LABS: Basophils # 0.1 10*3/uL (0.0-0.2); Basophils % 0.6 % (0.0-0.8); Eosinophils # 0.2 10*3/uL (0.0-0.87); Eosinophils % 2.5 % (0.00-10.9); Hematocrit 41.8 VOL% (35.7-47.0); Immature Granulocytes % 0.7 %; Immature Granulocytes Absolute 0.06 #; Lymphocytes # 3.8 10*3/uL (1.4-4.0); Lymphocytes % 46.1 % (21.3-54.2); Mean Corpuscular HGB Conc 29.2 GM/DL (32-36); Mean Corpuscular Volume 96.5 FL (87-102); Mean Platelet Volume 10.9 FL (9.6-12.0); Monocytes % 9.9 % (1.7-12.7); Neutrophils % 40.2 % (38.7-73.9); Platelet Count 280 T/CUMM (130-400); Red Blood Count 4.33 MC/CUMM (3.8-5.5); White Blood Count 8.3 T/CUMM (4-12)
[2019-09-10] MEDS: DOCUSATE SODIUM 100 MG CAPSULE PO SCH ×3 (00:15→20:35)
[2019-09-10] MEDS: PRAMIPEXOLE 0.25 MG TABLET PO SCH ×4 (00:15→20:35)
[2019-09-10] MEDS: MAGNESIUM OXIDE 400 MG TABLET PO SCH ×3 (00:15→20:35)
[2019-09-10] MEDS: carvediloL 6.25 MG TABLET PO SCH ×3 (00:15→20:35)
[2019-09-10] MEDS: GABAPENTIN 600 MG TABLET PO SCH ×4 (00:15→20:35)
[2019-09-10] MEDS: BUDESONIDE/FORMOTEROL 160-4.5 INHALER 6 GM INH SCH ×3 (00:15→21:21)
[2019-09-10] MEDS: SODIUM CHLORIDE 0.9% 1,000 ML IV SCH ×2 (01:33→20:35)
[2019-09-10] MEDS: ACETAMINOPHEN 325 MG TABLET PO PRN (01:56)
[2019-09-10] MEDS: SODIUM CHLORIDE 0.45% 1,000 ML IV SCH (02:30)
[2019-09-10 03:39] LABS: Apearance,Urine CLEAR (Clear); Bacteria,Urine Occasional /HPF (Few); Bilirubin,Urine Negative (Negative); Blood, Urine Moderate mg/dL (Negative); Glucose,Urine (UA) Negative (Negative); Hyaline Casts,Urine 1 /LPF (0-3); Ketones,Urine Negative (Negative); Mucus,Urine Occasional /LPF (Occasional); Nitrite,Urine Negative (Negative); Protein,Urine 30 MG/DL; RBC,Urine 37 /HPF (0-4); Squamous Epithelial Cell,Urine Occasional /HPF (0-10); Urine Color Yellow (Yellow); Urine Specific Gravity 1.018 (1.001-1.035); Urine Urobilinogen < 2.0 EU/DL (0.2-1.0); WBC,Urine 2 /HPF (0-6)
[2019-09-10] MEDS: ENOXAPARIN 40 MG/0.4 ML SYRINGE SUBCUT SCH (08:22)
[2019-09-10] MEDS: ONDANSETRON 4 MG/2 ML VIAL IV PRN (08:22)
[2019-09-10] MEDS: BUTALBITAL/ACETAMIN/CAFFEINE 50-325-40 MG TABLET PO PRN (08:23)
[2019-09-10] MEDS: LEVOTHYROXINE 50 MCG TABLET PO SCH (08:23)
[2019-09-10] MEDS: FENOFIBRATE 160 MG TABLET PO SCH (08:23)
[2019-09-10] MEDS: FUROSEMIDE 40 MG TABLET PO SCH (08:24)
[2019-09-10] MEDS: ATORVASTATIN 40 MG TABLET PO SCH (08:24)
[2019-09-10] MEDS: POTASSIUM CHLORIDE 20 MEQ TABLET PO SCH (08:25)
[2019-09-10] MEDS: PANTOPRAZOLE 40 MG TABLET PO SCH (08:25)
[2019-09-10] MEDS: INSULIN LISPRO 100 UNIT/ML SUBCUT SCH ×4 (08:28→20:34)
[2019-09-10] MEDS: LOSARTAN 25 MG TABLET PO SCH (08:30)
[2019-09-10] MEDS: FERROUS SULFATE 325 MG TABLET PO SCH (08:30)
[2019-09-10] MEDS: PROMETHAZINE 25 MG TABLET PO PRN (11:20)
[2019-09-10 19:14] LABS: Folate > 24.0 NG/ML (5.4-24.0); Vitamin B12 1107 PG/ML (211-911)
[2019-09-10] MEDS: MEGESTROL 40 MG TABLET PO SCH (20:35)
[2019-09-10] MEDS ORDERED: LACTULOSE 20 GM/30 ML UDCUP PO ONE (20:52)
[2019-09-10] MEDS ORDERED: traMADol 50 MG TABLET PO PRN (20:59)
[2019-09-10] MEDS ORDERED: TOPIRAMATE 25 MG TABLET PO SCH (21:00)
[2019-09-10] MEDS ORDERED: traMADol 50 MG TABLET PO SCH (21:00)
[2019-09-11] MEDS: ALBUTEROL/IPRATROPIUM 3 ML NEB RESP TX SCH ×4 (01:25→19:20)
[2019-09-11 05:33] LABS: Calcium 9.2 MG/DL (8.5-10.1); Osmolality,Calculated 283.1 MOS/KG (273-304)
[2019-09-11 09:14] LABS: ABG Base Excess 12.2 MMOL/L (-2.5-2.5); ABG HCO3 35.8 MMOL/L (20-26); ABG Oxygen Saturation 88.4 % (95-100); ABG PH 7.329 (7.35-7.45); ABG PO2 57.5 MM HG (80-95); ABG TCO2 37.7 MMOL/L (23-27)
[2019-09-11 09:16] LABS: ABG PCO2 80.4 MM HG (35-48)
[2019-09-11] MEDS: LACTULOSE 20 GM/30 ML UDCUP PO SCH (09:46)
[2019-09-11] MEDS: FENOFIBRATE 160 MG TABLET PO SCH (09:47)
[2019-09-11] MEDS: MEGESTROL 40 MG TABLET PO SCH ×2 (09:47→20:47)
[2019-09-11] MEDS: ATORVASTATIN 40 MG TABLET PO SCH (09:47)
[2019-09-11] MEDS: POTASSIUM CHLORIDE 20 MEQ TABLET PO SCH (09:47)
[2019-09-11] MEDS: GABAPENTIN 600 MG TABLET PO SCH ×3 (09:47→20:47)
[2019-09-11] MEDS: FUROSEMIDE 40 MG TABLET PO SCH (09:47)
[2019-09-11] MEDS: DOCUSATE SODIUM 100 MG CAPSULE PO SCH ×2 (09:47→20:46)
[2019-09-11] MEDS: PRAMIPEXOLE 0.25 MG TABLET PO SCH ×3 (09:47→20:46)
[2019-09-11] MEDS: LOSARTAN 25 MG TABLET PO SCH (09:47)
[2019-09-11] MEDS: BUTALBITAL/ACETAMIN/CAFFEINE 50-325-40 MG TABLET PO SCH (09:47)
[2019-09-11] MEDS: MAGNESIUM OXIDE 400 MG TABLET PO SCH ×2 (09:48→20:47)
[2019-09-11] MEDS: INSULIN LISPRO 100 UNIT/ML SUBCUT SCH ×4 (09:48→21:04)
[2019-09-11] MEDS: FERROUS SULFATE 325 MG TABLET PO SCH (09:48)
[2019-09-11] MEDS: carvediloL 6.25 MG TABLET PO SCH ×2 (09:48→20:47)
[2019-09-11] MEDS: PANTOPRAZOLE 40 MG TABLET PO SCH (09:48)
[2019-09-11] MEDS: BUDESONIDE/FORMOTEROL 160-4.5 INHALER 6 GM INH SCH ×2 (09:51→20:47)
[2019-09-11] MEDS: LEVOTHYROXINE 50 MCG TABLET PO SCH (09:53)
[2019-09-11] MEDS: ENOXAPARIN 40 MG/0.4 ML SYRINGE SUBCUT SCH (09:53)
[2019-09-11] MEDS: TOPIRAMATE 25 MG TABLET PO SCH (20:47)
[2019-09-11] MEDS: SODIUM CHLORIDE 0.9% 1,000 ML IV SCH (21:07)
[2019-09-12] MEDS: ALBUTEROL/IPRATROPIUM 3 ML NEB RESP TX SCH ×4 (01:00→20:57)
[2019-09-12 04:49] LABS: ABG Base Excess 17.8 MMOL/L (-2.5-2.5); ABG HCO3 41.9 MMOL/L (20-26); ABG Oxygen Saturation 93.6 % (95-100); ABG PH 7.347 (7.35-7.45); ABG PO2 70.6 MM HG (80-95); ABG TCO2 43.3 MMOL/L (23-27); Allen Test Positive
[2019-09-12 04:51] LABS: ABG PCO2 88.9 MM HG (35-48)
[2019-09-12 06:03] LABS: Osmolality,Calculated 287.8 MOS/KG (273-304)
[2019-09-12] MEDS: LACTULOSE 20 GM/30 ML UDCUP PO SCH ×2 (08:40→20:04)
[2019-09-12] MEDS: ENOXAPARIN 40 MG/0.4 ML SYRINGE SUBCUT SCH (08:41)
[2019-09-12] MEDS: methylPREDNISolone SOD SUC 40 MG/1 ML VIAL IV SCH ×3 (08:41→19:39)
[2019-09-12] MEDS: TOPIRAMATE 25 MG TABLET PO SCH ×2 (08:41→20:05)
[2019-09-12] MEDS: PRAMIPEXOLE 0.25 MG TABLET PO SCH ×3 (08:41→20:05)
[2019-09-12] MEDS: LOSARTAN 25 MG TABLET PO SCH (08:41)
[2019-09-12] MEDS: FENOFIBRATE 160 MG TABLET PO SCH (08:41)
[2019-09-12] MEDS: LEVOTHYROXINE 50 MCG TABLET PO SCH (08:42)
[2019-09-12] MEDS: DOCUSATE SODIUM 100 MG CAPSULE PO SCH ×2 (08:42→20:05)
[2019-09-12] MEDS: GABAPENTIN 600 MG TABLET PO SCH ×3 (08:42→20:05)
[2019-09-12] MEDS: MEGESTROL 40 MG TABLET PO SCH ×2 (08:42→20:04)
[2019-09-12] MEDS: carvediloL 6.25 MG TABLET PO SCH ×2 (08:42→20:05)
[2019-09-12] MEDS: MAGNESIUM OXIDE 400 MG TABLET PO SCH ×2 (08:42→20:04)
[2019-09-12] MEDS: FERROUS SULFATE 325 MG TABLET PO SCH (08:42)
[2019-09-12] MEDS: ATORVASTATIN 40 MG TABLET PO SCH (08:42)
[2019-09-12] MEDS: PANTOPRAZOLE 40 MG TABLET PO SCH (08:42)
[2019-09-12] MEDS: POTASSIUM CHLORIDE 20 MEQ TABLET PO SCH (08:42)
[2019-09-12] MEDS: BUTALBITAL/ACETAMIN/CAFFEINE 50-325-40 MG TABLET PO SCH (08:42)
[2019-09-12] MEDS: BUDESONIDE/FORMOTEROL 160-4.5 INHALER 6 GM INH SCH ×2 (08:51→20:12)
[2019-09-12] MEDS: INSULIN LISPRO 100 UNIT/ML SUBCUT SCH ×4 (08:51→20:06)
[2019-09-12] MEDS ORDERED: FUROSEMIDE 40 MG/4 ML VIAL IV SCH (09:00)
[2019-09-12] MEDS: AZITHROMYCIN INJ 250 MG in SODIUM CHLORIDE 0.9% 150 ML IV SCH (16:24)
[2019-09-12] MEDS: cefTRIAXone 500 MG in SYRINGE 1 EACH IV SCH (16:24)
[2019-09-12] MEDS: SODIUM CHLORIDE 0.9% 1,000 ML IV SCH (20:05)
[2019-09-13] MEDS: ALBUTEROL/IPRATROPIUM 3 ML NEB RESP TX SCH ×4 (01:14→19:32)
[2019-09-13] MEDS: methylPREDNISolone SOD SUC 40 MG/1 ML VIAL IV SCH ×4 (01:44→19:13)
[2019-09-13 03:47] LABS: ABG Base Excess 12.7 MMOL/L (-2.5-2.5); ABG HCO3 36.4 MMOL/L (20-26); ABG Oxygen Saturation 93.3 % (95-100); ABG PH 7.293 (7.35-7.45); ABG PO2 73.9 MM HG (80-95); ABG TCO2 39.4 MMOL/L (23-27); Allen Test Positive
[2019-09-13 04:22] LABS: ABG PCO2 91.3 MM HG (35-48)
[2019-09-13 05:30] LABS: Alanine Aminotransferase 15 U/L (13-56); Albumin 3.2 G/DL (3.4-5.0); Alkaline Phosphatase 54 U/L (45-117); Aspartate Amino Transferase 12 U/L (0-37); Bilirubin,Total < 0.39 MG/DL (0.2-1.0); Blood Urea Nitrogen 19 MG/DL (7-18); Calcium 9.6 MG/DL (8.5-10.1); Estimated Glom Filtration Rate 86 ML/MIN; Glucose 155 MG/DL (74-106); Osmolality,Calculated 285.3 MOS/KG (273-304); Total Protein 7.2 G/DL (6.4-8.3)
[2019-09-13] MEDS: BUDESONIDE/FORMOTEROL 160-4.5 INHALER 6 GM INH SCH ×2 (08:42→20:30)
[2019-09-13] MEDS: INSULIN LISPRO 100 UNIT/ML SUBCUT SCH ×4 (08:43→20:44)
[2019-09-13] MEDS: ENOXAPARIN 40 MG/0.4 ML SYRINGE SUBCUT SCH (08:44)
[2019-09-13] MEDS: MEGESTROL 40 MG TABLET PO SCH ×2 (08:45→20:29)
[2019-09-13] MEDS: LACTULOSE 20 GM/30 ML UDCUP PO SCH ×2 (08:45→20:28)
[2019-09-13] MEDS: GABAPENTIN 600 MG TABLET PO SCH ×3 (08:45→20:29)
[2019-09-13] MEDS: BUTALBITAL/ACETAMIN/CAFFEINE 50-325-40 MG TABLET PO SCH (08:45)
[2019-09-13] MEDS: MAGNESIUM OXIDE 400 MG TABLET PO SCH ×2 (08:45→20:35)
[2019-09-13] MEDS: THEOPHYLLINE ER (24 HR) 400 MG CAPSULE PO SCH (08:46)
[2019-09-13] MEDS: LEVOTHYROXINE 50 MCG TABLET PO SCH (08:46)
[2019-09-13] MEDS: PRAMIPEXOLE 0.25 MG TABLET PO SCH ×3 (08:46→20:28)
[2019-09-13] MEDS: LOSARTAN 25 MG TABLET PO SCH (08:46)
[2019-09-13] MEDS: TOPIRAMATE 25 MG TABLET PO SCH ×2 (08:46→20:29)
[2019-09-13] MEDS: ATORVASTATIN 40 MG TABLET PO SCH (08:46)
[2019-09-13] MEDS: FENOFIBRATE 160 MG TABLET PO SCH (08:46)
[2019-09-13] MEDS: FERROUS SULFATE 325 MG TABLET PO SCH (08:46)
[2019-09-13] MEDS: PANTOPRAZOLE 40 MG TABLET PO SCH (08:47)
[2019-09-13] MEDS: carvediloL 6.25 MG TABLET PO SCH ×2 (08:47→20:29)
[2019-09-13] MEDS: POTASSIUM CHLORIDE 20 MEQ TABLET PO SCH (08:47)
[2019-09-13] MEDS: DOCUSATE SODIUM 100 MG CAPSULE PO SCH ×2 (08:47→20:29)
[2019-09-13] MEDS: AZITHROMYCIN INJ 250 MG in SODIUM CHLORIDE 0.9% 150 ML IV SCH (16:55)
[2019-09-13] MEDS: cefTRIAXone 500 MG in SYRINGE 1 EACH IV SCH (16:56)
[2019-09-13] MEDS ORDERED: MAGNESIUM HYDROXIDE SUSP 30 ML UDCUP PO PRN (18:19)
[2019-09-14] MEDS: SODIUM CHLORIDE 0.9% 1,000 ML IV SCH ×2 (00:53→18:03)
[2019-09-14] MEDS: methylPREDNISolone SOD SUC 40 MG/1 ML VIAL IV SCH ×4 (00:53→18:03)
[2019-09-14] MEDS: ALBUTEROL/IPRATROPIUM 3 ML NEB RESP TX SCH ×4 (02:14→20:13)
[2019-09-14 03:40] LABS: ABG Base Excess 8.5 MMOL/L (-2.5-2.5); ABG HCO3 32.2 MMOL/L (20-26); ABG Oxygen Saturation 97.8 % (95-100); ABG PCO2 58.6 MM HG (35-48); ABG PO2 92.9 MM HG (80-95); ABG TCO2 31.6 MMOL/L (23-27); Allen Test Positive; Pt O2 Delivery Device BIPAP
[2019-09-14 04:46] LABS: Basophils % 0.1 % (0.0-0.8); Immature Granulocytes % 0.3 %; Immature Granulocytes Absolute 0.02 #; Lymphocytes # 1.5 10*3/uL (1.4-4.0); Lymphocytes % 21.5 % (21.3-54.2); Mean Corpuscular HGB Conc 28.3 GM/DL (32-36); Mean Corpuscular Volume 100.2 FL (87-102); Mean Platelet Volume 10.9 FL (9.6-12.0); Monocytes % 5.2 % (1.7-12.7); Neutrophils % 72.9 % (38.7-73.9); Platelet Count 267 T/CUMM (130-400); Red Blood Count 4.16 MC/CUMM (3.8-5.5); Red Cell Distribution Width 21.2 % (9.3-17.3); White Blood Count 6.8 T/CUMM (4-12)
[2019-09-14 05:16] LABS: Osmolality,Calculated 288.3 MOS/KG (273-304)
[2019-09-14 05:18] LABS: Hematocrit 41.1 VOL% (35.7-47.0); Hemoglobin 11.8 GM/DL (12.0-16.0)
[2019-09-14 05:22] LABS: Hypochromasia 1+; Macrocytosis 1+; Ovalocytes Slight; Platelet Estimate Normal
[2019-09-14] MEDS: INSULIN LISPRO 100 UNIT/ML SUBCUT SCH ×4 (09:03→21:06)
[2019-09-14] MEDS: LACTULOSE 20 GM/30 ML UDCUP PO SCH ×4 (09:05→21:06)
[2019-09-14] MEDS: PRAMIPEXOLE 0.25 MG TABLET PO SCH ×3 (09:06→21:06)
[2019-09-14] MEDS: GABAPENTIN 600 MG TABLET PO SCH ×3 (09:07→21:05)
[2019-09-14] MEDS: FENOFIBRATE 160 MG TABLET PO SCH (09:07)
[2019-09-14] MEDS: carvediloL 6.25 MG TABLET PO SCH ×2 (09:07→21:05)
[2019-09-14] MEDS: LEVOTHYROXINE 50 MCG TABLET PO SCH (09:07)
[2019-09-14] MEDS: MAGNESIUM OXIDE 400 MG TABLET PO SCH ×2 (09:07→21:06)
[2019-09-14] MEDS: MEGESTROL 40 MG TABLET PO SCH ×2 (09:08→21:06)
[2019-09-14] MEDS: BUTALBITAL/ACETAMIN/CAFFEINE 50-325-40 MG TABLET PO SCH (09:08)
[2019-09-14] MEDS: DOCUSATE SODIUM 100 MG CAPSULE PO SCH ×2 (09:08→21:05)
[2019-09-14] MEDS: LOSARTAN 25 MG TABLET PO SCH (09:08)
[2019-09-14] MEDS: THEOPHYLLINE ER (24 HR) 400 MG CAPSULE PO SCH (09:08)
[2019-09-14] MEDS: FERROUS SULFATE 325 MG TABLET PO SCH (09:08)
[2019-09-14] MEDS: POTASSIUM CHLORIDE 20 MEQ TABLET PO SCH (09:08)
[2019-09-14] MEDS: PANTOPRAZOLE 40 MG TABLET PO SCH (09:08)
[2019-09-14] MEDS: ATORVASTATIN 40 MG TABLET PO SCH (09:09)
[2019-09-14] MEDS: TOPIRAMATE 25 MG TABLET PO SCH ×2 (09:09→21:05)
[2019-09-14] MEDS: ZINC OXIDE PASTE 113 GM TUBE TOP SCH ×2 (09:10→21:07)
[2019-09-14] MEDS: BUDESONIDE/FORMOTEROL 160-4.5 INHALER 6 GM INH SCH ×2 (09:10→21:06)
[2019-09-14] MEDS: ENOXAPARIN 40 MG/0.4 ML SYRINGE SUBCUT SCH (09:10)
[2019-09-14] MEDS: AZITHROMYCIN INJ 250 MG in SODIUM CHLORIDE 0.9% 150 ML IV SCH (15:00)
[2019-09-14] MEDS: cefTRIAXone 500 MG in SYRINGE 1 EACH IV SCH (16:11)
[2019-09-15] MEDS: ALBUTEROL/IPRATROPIUM 3 ML NEB RESP TX SCH ×5 (00:12→23:56)
[2019-09-15] MEDS: methylPREDNISolone SOD SUC 40 MG/1 ML VIAL IV SCH ×4 (01:04→20:42)
[2019-09-15 04:24] LABS: ABG Base Excess 4.5 MMOL/L (-2.5-2.5); ABG HCO3 28.5 MMOL/L (20-26); ABG Oxygen Saturation 96.5 % (95-100); ABG PCO2 61.5 MM HG (35-48); ABG PH 7.329 (7.35-7.45); ABG PO2 83.1 MM HG (80-95); Allen Test Positive; Pt O2 Delivery Device BIPAP
[2019-09-15 06:34] LABS: Albumin 2.4 G/DL (3.4-5.0); Bilirubin,Total 0.9 MG/DL (0.2-1.0); Calcium 8.6 MG/DL (8.5-10.1); Osmolality,Calculated 286.4 MOS/KG (273-304); Total Protein 6.4 G/DL (6.4-8.3)
[2019-09-15 06:49] LABS: Basophils % 0.2 % (0.0-0.8); Eosinophils % 0.2 % (0.00-10.9); Hematocrit 41.6 VOL% (35.7-47.0); Hemoglobin 11.8 GM/DL (12.0-16.0); Immature Granulocytes % 0.5 %; Immature Granulocytes Absolute 0.03 #; Lymphocytes # 1.5 10*3/uL (1.4-4.0); Lymphocytes % 24.5 % (21.3-54.2); Mean Corpuscular HGB Conc 28.4 GM/DL (32-36); Mean Corpuscular Volume 102.2 FL (87-102); Mean Platelet Volume 10.9 FL (9.6-12.0); Monocytes % 5.7 % (1.7-12.7); Neutrophils % 68.9 % (38.7-73.9); Platelet Count 236 T/CUMM (130-400); Red Blood Count 4.07 MC/CUMM (3.8-5.5); Red Cell Distribution Width 20.3 % (9.3-17.3); White Blood Count 6.2 T/CUMM (4-12)
[2019-09-15 08:09] LABS: Anisocytosis 1+; Platelet Estimate Normal
[2019-09-15 08:10] LABS: Poikilocytosis Slight
[2019-09-15] MEDS: POTASSIUM CHLORIDE 20 MEQ TABLET PO SCH (09:31)
[2019-09-15] MEDS: ENOXAPARIN 40 MG/0.4 ML SYRINGE SUBCUT SCH (09:31)
[2019-09-15] MEDS: LACTULOSE 20 GM/30 ML UDCUP PO SCH ×4 (09:31→20:39)
[2019-09-15] MEDS: FENOFIBRATE 160 MG TABLET PO SCH (09:32)
[2019-09-15] MEDS: MEGESTROL 40 MG TABLET PO SCH ×2 (09:32→20:40)
[2019-09-15] MEDS: THEOPHYLLINE ER (24 HR) 400 MG CAPSULE PO SCH (09:32)
[2019-09-15] MEDS: GABAPENTIN 600 MG TABLET PO SCH ×3 (09:32→20:39)
[2019-09-15] MEDS: LEVOTHYROXINE 50 MCG TABLET PO SCH (09:32)
[2019-09-15] MEDS: MAGNESIUM OXIDE 400 MG TABLET PO SCH ×2 (09:32→20:40)
[2019-09-15] MEDS: TOPIRAMATE 25 MG TABLET PO SCH ×2 (09:32→20:40)
[2019-09-15] MEDS: DOCUSATE SODIUM 100 MG CAPSULE PO SCH ×2 (09:32→20:40)
[2019-09-15] MEDS: PRAMIPEXOLE 0.25 MG TABLET PO SCH ×3 (09:32→20:39)
[2019-09-15] MEDS: ATORVASTATIN 40 MG TABLET PO SCH (09:32)
[2019-09-15] MEDS: PANTOPRAZOLE 40 MG TABLET PO SCH (09:33)
[2019-09-15] MEDS: carvediloL 6.25 MG TABLET PO SCH ×2 (09:33→20:40)
[2019-09-15] MEDS: FERROUS SULFATE 325 MG TABLET PO SCH (09:33)
[2019-09-15] MEDS: SODIUM CHLORIDE 0.9% 1,000 ML IV SCH (09:33)
[2019-09-15] MEDS: BUTALBITAL/ACETAMIN/CAFFEINE 50-325-40 MG TABLET PO SCH (09:33)
[2019-09-15] MEDS: LOSARTAN 25 MG TABLET PO SCH (09:33)
[2019-09-15] MEDS: BUDESONIDE/FORMOTEROL 160-4.5 INHALER 6 GM INH SCH ×2 (09:34→21:05)
[2019-09-15] MEDS: ZINC OXIDE PASTE 113 GM TUBE TOP SCH ×2 (09:34→21:06)
[2019-09-15] MEDS: INSULIN LISPRO 100 UNIT/ML SUBCUT SCH ×4 (09:34→20:40)
[2019-09-15] MEDS: AZITHROMYCIN INJ 250 MG in SODIUM CHLORIDE 0.9% 150 ML IV SCH (18:11)
[2019-09-15] MEDS: cefTRIAXone 500 MG in SYRINGE 1 EACH IV SCH (18:11)
[2019-09-16] MEDS: SODIUM CHLORIDE 0.9% 1,000 ML IV SCH ×2 (01:30→15:41)
[2019-09-16] MEDS: methylPREDNISolone SOD SUC 40 MG/1 ML VIAL IV SCH ×4 (03:15→21:00)
[2019-09-16] MEDS: ALBUTEROL/IPRATROPIUM 3 ML NEB RESP TX SCH ×3 (07:19→18:40)
[2019-09-16] MEDS ORDERED: BISACODYL 10 MG SUPP RECTAL ONE (08:52)
[2019-09-16] MEDS ORDERED: POLYETHYLENE GLYCOL POWDER 17 GM PACK PO PRN (08:52)
[2019-09-16] MEDS: INSULIN LISPRO 100 UNIT/ML SUBCUT SCH ×4 (10:11→21:28)
[2019-09-16] MEDS: FERROUS SULFATE 325 MG TABLET PO SCH (10:13)
[2019-09-16] MEDS: ENOXAPARIN 40 MG/0.4 ML SYRINGE SUBCUT SCH (10:13)
[2019-09-16] MEDS: LACTULOSE 20 GM/30 ML UDCUP PO SCH ×4 (10:13→21:31)
[2019-09-16] MEDS: DOCUSATE SODIUM 100 MG CAPSULE PO SCH ×2 (10:14→21:30)
[2019-09-16] MEDS: MEGESTROL 40 MG TABLET PO SCH ×2 (10:14→21:30)
[2019-09-16] MEDS: carvediloL 6.25 MG TABLET PO SCH ×2 (10:14→21:30)
[2019-09-16] MEDS: PRAMIPEXOLE 0.25 MG TABLET PO SCH ×3 (10:14→21:30)
[2019-09-16] MEDS: LOSARTAN 25 MG TABLET PO SCH (10:15)
[2019-09-16] MEDS: BUTALBITAL/ACETAMIN/CAFFEINE 50-325-40 MG TABLET PO SCH (10:15)
[2019-09-16] MEDS: THEOPHYLLINE ER (24 HR) 400 MG CAPSULE PO SCH (10:16)
[2019-09-16] MEDS: MAGNESIUM OXIDE 400 MG TABLET PO SCH ×2 (10:16→21:30)
[2019-09-16] MEDS: TOPIRAMATE 25 MG TABLET PO SCH ×2 (10:16→21:30)
[2019-09-16] MEDS: POTASSIUM CHLORIDE 20 MEQ TABLET PO SCH (10:16)
[2019-09-16] MEDS: GABAPENTIN 600 MG TABLET PO SCH ×3 (10:17→21:30)
[2019-09-16] MEDS: LEVOTHYROXINE 50 MCG TABLET PO SCH (10:17)
[2019-09-16] MEDS: PANTOPRAZOLE 40 MG TABLET PO SCH (10:17)
[2019-09-16] MEDS: ATORVASTATIN 40 MG TABLET PO SCH (10:17)
[2019-09-16] MEDS: BUDESONIDE/FORMOTEROL 160-4.5 INHALER 6 GM INH SCH ×2 (10:21→21:30)
[2019-09-16] MEDS: ZINC OXIDE PASTE 113 GM TUBE TOP SCH ×2 (10:21→21:30)
[2019-09-16] MEDS: FENOFIBRATE 160 MG TABLET PO SCH (10:23)
[2019-09-16] MEDS: cefTRIAXone 500 MG in SYRINGE 1 EACH IV SCH (15:37)
[2019-09-16] MEDS: AZITHROMYCIN INJ 250 MG in SODIUM CHLORIDE 0.9% 150 ML IV SCH (17:18)
[2019-09-17] MEDS: methylPREDNISolone SOD SUC 40 MG/1 ML VIAL IV SCH ×3 (00:47→15:11)
[2019-09-17] MEDS: ALBUTEROL/IPRATROPIUM 3 ML NEB RESP TX SCH ×4 (01:00→19:11)
[2019-09-17] MEDS: SODIUM CHLORIDE 0.9% 1,000 ML IV SCH ×2 (05:34→21:12)
[2019-09-17] MEDS: LOSARTAN 25 MG TABLET PO SCH (08:57)
[2019-09-17] MEDS: ATORVASTATIN 40 MG TABLET PO SCH (08:57)
[2019-09-17] MEDS: LEVOTHYROXINE 50 MCG TABLET PO SCH (08:57)
[2019-09-17] MEDS: TOPIRAMATE 25 MG TABLET PO SCH ×2 (08:57→21:11)
[2019-09-17] MEDS: THEOPHYLLINE ER (24 HR) 400 MG CAPSULE PO SCH (08:58)
[2019-09-17] MEDS: MEGESTROL 40 MG TABLET PO SCH ×2 (08:58→21:11)
[2019-09-17] MEDS: POTASSIUM CHLORIDE 20 MEQ TABLET PO SCH (08:58)
[2019-09-17] MEDS: BUTALBITAL/ACETAMIN/CAFFEINE 50-325-40 MG TABLET PO SCH (08:59)
[2019-09-17] MEDS: FERROUS SULFATE 325 MG TABLET PO SCH (08:59)
[2019-09-17] MEDS: carvediloL 6.25 MG TABLET PO SCH ×2 (08:59→21:11)
[2019-09-17] MEDS: DOCUSATE SODIUM 100 MG CAPSULE PO SCH ×2 (08:59→21:11)
[2019-09-17] MEDS: FENOFIBRATE 160 MG TABLET PO SCH (08:59)
[2019-09-17] MEDS: PANTOPRAZOLE 40 MG TABLET PO SCH (08:59)
[2019-09-17] MEDS: ENOXAPARIN 40 MG/0.4 ML SYRINGE SUBCUT SCH (09:00)
[2019-09-17] MEDS: LACTULOSE 20 GM/30 ML UDCUP PO SCH ×4 (09:00→21:10)
[2019-09-17] MEDS: ZINC OXIDE PASTE 113 GM TUBE TOP SCH ×2 (09:01→21:11)
[2019-09-17] MEDS: MAGNESIUM OXIDE 400 MG TABLET PO SCH ×2 (09:01→21:11)
[2019-09-17] MEDS: GABAPENTIN 600 MG TABLET PO SCH ×3 (09:02→21:11)
[2019-09-17] MEDS: BUDESONIDE/FORMOTEROL 160-4.5 INHALER 6 GM INH SCH ×2 (09:03→21:11)
[2019-09-17] MEDS: PRAMIPEXOLE 0.25 MG TABLET PO SCH ×3 (09:03→21:10)
[2019-09-17 09:19] LABS: Basophils % 0.1 % (0.0-0.8); Hematocrit 42.3 VOL% (35.7-47.0); Immature Granulocytes % 0.9 %; Immature Granulocytes Absolute 0.07 #; Lymphocytes # 1.7 10*3/uL (1.4-4.0); Lymphocytes % 22.7 % (21.3-54.2); Mean Corpuscular HGB Conc 28.6 GM/DL (32-36); Mean Corpuscular Volume 100.5 FL (87-102); Mean Platelet Volume 11.3 FL (9.6-12.0); Monocytes % 5.7 % (1.7-12.7); Neutrophils % 70.6 % (38.7-73.9); Platelet Count 238 T/CUMM (130-400); Red Blood Count 4.21 MC/CUMM (3.8-5.5); Red Cell Distribution Width 19.9 % (9.3-17.3); White Blood Count 7.4 T/CUMM (4-12)
[2019-09-17 09:20] LABS: Albumin 2.8 G/DL (3.4-5.0); Bilirubin,Total 0.6 MG/DL (0.2-1.0); Calcium 8.8 MG/DL (8.5-10.1); Osmolality,Calculated 296.7 MOS/KG (273-304); Total Protein 6.2 G/DL (6.4-8.3)
[2019-09-17 09:20] LABS: Hemoglobin 12.1 GM/DL (12.0-16.0)
[2019-09-17] MEDS: INSULIN LISPRO 100 UNIT/ML SUBCUT SCH ×4 (09:24→21:10)
[2019-09-17 09:47] LABS: Anisocytosis 2+; Platelet Estimate Normal
[2019-09-17 09:48] LABS: Ovalocytes Few; Poikilocytosis Slight; Spherocytes Few
[2019-09-17] MEDS: cefTRIAXone 500 MG in SYRINGE 1 EACH IV SCH (15:13)
[2019-09-17] MEDS: AZITHROMYCIN INJ 250 MG in SODIUM CHLORIDE 0.9% 150 ML IV SCH (15:14)
[2019-09-17] MEDS: BISACODYL 10 MG SUPP RECTAL SCH (21:11)
[2019-09-18] MEDS: ALBUTEROL/IPRATROPIUM 3 ML NEB RESP TX SCH ×4 (00:39→19:15)
[2019-09-18] MEDS: methylPREDNISolone SOD SUC 40 MG/1 ML VIAL IV SCH ×2 (03:36→16:04)
[2019-09-18 05:35] LABS: Calcium 8.6 MG/DL (8.5-10.1)
[2019-09-18 05:53] LABS: Basophils % 0.1 % (0.0-0.8); Eosinophils % 0.3 % (0.00-10.9); Hematocrit 38.8 VOL% (35.7-47.0); Hemoglobin 11.4 GM/DL (12.0-16.0); Immature Granulocytes % 0.5 %; Immature Granulocytes Absolute 0.04 #; Lymphocytes # 2.2 10*3/uL (1.4-4.0); Lymphocytes % 29.2 % (21.3-54.2); Mean Corpuscular HGB Conc 29.4 GM/DL (32-36); Mean Corpuscular Volume 98.2 FL (87-102); Mean Platelet Volume 10.6 FL (9.6-12.0); Monocytes % 8.1 % (1.7-12.7); Neutrophils % 61.8 % (38.7-73.9); Platelet Count 244 T/CUMM (130-400); Red Blood Count 3.95 MC/CUMM (3.8-5.5); Red Cell Distribution Width 19.8 % (9.3-17.3); White Blood Count 7.4 T/CUMM (4-12)
[2019-09-18 05:55] LABS: Hypochromasia 1+; Macrocytosis 1+
[2019-09-18 05:56] LABS: Ovalocytes Slight; Platelet Estimate Normal
[2019-09-18] MEDS: INSULIN LISPRO 100 UNIT/ML SUBCUT SCH ×4 (07:34→21:06)
[2019-09-18] MEDS: LACTULOSE 20 GM/30 ML UDCUP PO SCH ×4 (08:20→20:53)
[2019-09-18] MEDS: ENOXAPARIN 40 MG/0.4 ML SYRINGE SUBCUT SCH (08:21)
[2019-09-18] MEDS: PRAMIPEXOLE 0.25 MG TABLET PO SCH ×3 (08:21→20:52)
[2019-09-18] MEDS: MAGNESIUM OXIDE 400 MG TABLET PO SCH ×2 (08:21→20:52)
[2019-09-18] MEDS: FENOFIBRATE 160 MG TABLET PO SCH (08:21)
[2019-09-18] MEDS: GABAPENTIN 600 MG TABLET PO SCH ×3 (08:22→20:52)
[2019-09-18] MEDS: MEGESTROL 40 MG TABLET PO SCH ×2 (08:22→20:52)
[2019-09-18] MEDS: LEVOTHYROXINE 50 MCG TABLET PO SCH (08:22)
[2019-09-18] MEDS: TOPIRAMATE 25 MG TABLET PO SCH ×2 (08:22→20:53)
[2019-09-18] MEDS: LOSARTAN 25 MG TABLET PO SCH (08:22)
[2019-09-18] MEDS: FERROUS SULFATE 325 MG TABLET PO SCH (08:22)
[2019-09-18] MEDS: carvediloL 6.25 MG TABLET PO SCH ×2 (08:22→20:52)
[2019-09-18] MEDS: DOCUSATE SODIUM 100 MG CAPSULE PO SCH ×2 (08:22→20:52)
[2019-09-18] MEDS: POTASSIUM CHLORIDE 20 MEQ TABLET PO SCH (08:22)
[2019-09-18] MEDS: ATORVASTATIN 40 MG TABLET PO SCH (08:23)
[2019-09-18] MEDS: BUDESONIDE/FORMOTEROL 160-4.5 INHALER 6 GM INH SCH ×2 (08:23→20:55)
[2019-09-18] MEDS: PANTOPRAZOLE 40 MG TABLET PO SCH (08:23)
[2019-09-18] MEDS: THEOPHYLLINE ER (24 HR) 400 MG CAPSULE PO SCH (08:23)
[2019-09-18] MEDS: BUTALBITAL/ACETAMIN/CAFFEINE 50-325-40 MG TABLET PO SCH (08:23)
[2019-09-18] MEDS: ZINC OXIDE PASTE 113 GM TUBE TOP SCH ×2 (08:24→21:45)
[2019-09-18] MEDS: cefTRIAXone 500 MG in SYRINGE 1 EACH IV SCH (16:04)
[2019-09-18] MEDS: SODIUM CHLORIDE 0.9% 1,000 ML IV SCH (16:35)
[2019-09-19] MEDS: SODIUM CHLORIDE 0.9% 1,000 ML IV SCH ×2 (02:56→16:39)
[2019-09-19] MEDS: methylPREDNISolone SOD SUC 40 MG/1 ML VIAL IV SCH ×2 (03:55→14:57)
[2019-09-19] MEDS: ALBUTEROL/IPRATROPIUM 3 ML NEB RESP TX SCH ×4 (07:15→20:30)
[2019-09-19] MEDS: PRAMIPEXOLE 0.25 MG TABLET PO SCH ×3 (10:08→21:17)
[2019-09-19] MEDS: FENOFIBRATE 160 MG TABLET PO SCH (10:08)
[2019-09-19] MEDS: carvediloL 6.25 MG TABLET PO SCH ×2 (10:08→21:16)
[2019-09-19] MEDS: BUTALBITAL/ACETAMIN/CAFFEINE 50-325-40 MG TABLET PO SCH (10:08)
[2019-09-19] MEDS: POTASSIUM CHLORIDE 20 MEQ TABLET PO SCH (10:08)
[2019-09-19] MEDS: THEOPHYLLINE ER (24 HR) 400 MG CAPSULE PO SCH (10:08)
[2019-09-19] MEDS: LEVOTHYROXINE 50 MCG TABLET PO SCH (10:08)
[2019-09-19] MEDS: MAGNESIUM OXIDE 400 MG TABLET PO SCH ×2 (10:09→21:18)
[2019-09-19] MEDS: BUDESONIDE/FORMOTEROL 160-4.5 INHALER 6 GM INH SCH ×2 (10:09→21:19)
[2019-09-19] MEDS: DOCUSATE SODIUM 100 MG CAPSULE PO SCH ×2 (10:09→21:17)
[2019-09-19] MEDS: TOPIRAMATE 25 MG TABLET PO SCH ×2 (10:09→21:18)
[2019-09-19] MEDS: FERROUS SULFATE 325 MG TABLET PO SCH (10:09)
[2019-09-19] MEDS: PANTOPRAZOLE 40 MG TABLET PO SCH (10:09)
[2019-09-19] MEDS: LOSARTAN 25 MG TABLET PO SCH (10:09)
[2019-09-19] MEDS: MEGESTROL 40 MG TABLET PO SCH ×2 (10:09→21:18)
[2019-09-19] MEDS: LACTULOSE 20 GM/30 ML UDCUP PO SCH ×4 (10:10→21:18)
[2019-09-19] MEDS: BISACODYL 10 MG SUPP RECTAL SCH (10:10)
[2019-09-19] MEDS: ENOXAPARIN 40 MG/0.4 ML SYRINGE SUBCUT SCH (10:10)
[2019-09-19] MEDS: GABAPENTIN 600 MG TABLET PO SCH ×4 (10:15→21:18)
[2019-09-19] MEDS: ZINC OXIDE PASTE 113 GM TUBE TOP SCH ×2 (10:15→21:18)
[2019-09-19] MEDS: ATORVASTATIN 40 MG TABLET PO SCH (10:19)
[2019-09-19] MEDS: INSULIN LISPRO 100 UNIT/ML SUBCUT SCH ×4 (10:24→21:34)
[2019-09-19] MEDS: cefTRIAXone 500 MG in SYRINGE 1 EACH IV SCH (16:37)
[2019-09-20] MEDS: ALBUTEROL/IPRATROPIUM 3 ML NEB RESP TX SCH ×4 (00:12→20:13)
[2019-09-20] MEDS: methylPREDNISolone SOD SUC 40 MG/1 ML VIAL IV SCH ×2 (02:15→15:32)
[2019-09-20 04:47] LABS: Calcium 8.3 MG/DL (8.5-10.1); Osmolality,Calculated 288.8 MOS/KG (273-304)
[2019-09-20] MEDS: SODIUM CHLORIDE 0.9% 1,000 ML IV SCH ×2 (06:13→21:40)
[2019-09-20] MEDS: ENOXAPARIN 40 MG/0.4 ML SYRINGE SUBCUT SCH (10:01)
[2019-09-20] MEDS: THEOPHYLLINE ER (24 HR) 400 MG CAPSULE PO SCH (10:02)
[2019-09-20] MEDS: PRAMIPEXOLE 0.25 MG TABLET PO SCH ×3 (10:02→21:40)
[2019-09-20] MEDS: FENOFIBRATE 160 MG TABLET PO SCH (10:02)
[2019-09-20] MEDS: FERROUS SULFATE 325 MG TABLET PO SCH (10:03)
[2019-09-20] MEDS: carvediloL 6.25 MG TABLET PO SCH ×2 (10:03→21:41)
[2019-09-20] MEDS: PANTOPRAZOLE 40 MG TABLET PO SCH (10:03)
[2019-09-20] MEDS: ATORVASTATIN 40 MG TABLET PO SCH (10:03)
[2019-09-20] MEDS: BUTALBITAL/ACETAMIN/CAFFEINE 50-325-40 MG TABLET PO SCH (10:03)
[2019-09-20] MEDS: TOPIRAMATE 25 MG TABLET PO SCH ×2 (10:03→21:41)
[2019-09-20] MEDS: DOCUSATE SODIUM 100 MG CAPSULE PO SCH ×2 (10:03→21:41)
[2019-09-20] MEDS: POTASSIUM CHLORIDE 20 MEQ TABLET PO SCH (10:03)
[2019-09-20] MEDS: LEVOTHYROXINE 50 MCG TABLET PO SCH (10:03)
[2019-09-20] MEDS: LOSARTAN 25 MG TABLET PO SCH (10:03)
[2019-09-20] MEDS: MAGNESIUM OXIDE 400 MG TABLET PO SCH ×2 (10:04→21:41)
[2019-09-20] MEDS: BUDESONIDE/FORMOTEROL 160-4.5 INHALER 6 GM INH SCH ×2 (10:04→21:41)
[2019-09-20] MEDS: GABAPENTIN 600 MG TABLET PO SCH ×3 (10:04→21:41)
[2019-09-20] MEDS: MEGESTROL 40 MG TABLET PO SCH ×2 (10:04→21:41)
[2019-09-20] MEDS: LACTULOSE 20 GM/30 ML UDCUP PO SCH ×4 (10:05→21:41)
[2019-09-20] MEDS: INSULIN LISPRO 100 UNIT/ML SUBCUT SCH ×4 (10:05→21:40)
[2019-09-20] MEDS: ZINC OXIDE PASTE 113 GM TUBE TOP SCH ×2 (10:05→21:42)
[2019-09-21] MEDS: ALBUTEROL/IPRATROPIUM 3 ML NEB RESP TX SCH ×4 (00:32→19:47)
[2019-09-21] MEDS: methylPREDNISolone SOD SUC 40 MG/1 ML VIAL IV SCH ×2 (02:21→16:22)
[2019-09-21] MEDS: SODIUM CHLORIDE 0.9% 1,000 ML IV SCH ×3 (02:23→16:23)
[2019-09-21] MEDS: INSULIN LISPRO 100 UNIT/ML SUBCUT SCH ×4 (08:25→21:24)
[2019-09-21] MEDS: GABAPENTIN 600 MG TABLET PO SCH ×3 (08:27→21:22)
[2019-09-21] MEDS: ATORVASTATIN 40 MG TABLET PO SCH (08:27)
[2019-09-21] MEDS: FERROUS SULFATE 325 MG TABLET PO SCH (08:27)
[2019-09-21] MEDS: LOSARTAN 25 MG TABLET PO SCH (08:27)
[2019-09-21] MEDS: PRAMIPEXOLE 0.25 MG TABLET PO SCH ×3 (08:28→21:21)
[2019-09-21] MEDS: POTASSIUM CHLORIDE 20 MEQ TABLET PO SCH (08:28)
[2019-09-21] MEDS: FENOFIBRATE 160 MG TABLET PO SCH (08:28)
[2019-09-21] MEDS: MEGESTROL 40 MG TABLET PO SCH ×2 (08:28→21:22)
[2019-09-21] MEDS: MAGNESIUM OXIDE 400 MG TABLET PO SCH ×2 (08:28→21:21)
[2019-09-21] MEDS: DOCUSATE SODIUM 100 MG CAPSULE PO SCH ×2 (08:28→21:22)
[2019-09-21] MEDS: TOPIRAMATE 25 MG TABLET PO SCH ×2 (08:28→21:21)
[2019-09-21] MEDS: BUTALBITAL/ACETAMIN/CAFFEINE 50-325-40 MG TABLET PO SCH (08:28)
[2019-09-21] MEDS: LACTULOSE 20 GM/30 ML UDCUP PO SCH ×4 (08:29→21:21)
[2019-09-21] MEDS: PANTOPRAZOLE 40 MG TABLET PO SCH (08:29)
[2019-09-21] MEDS: LEVOTHYROXINE 50 MCG TABLET PO SCH (08:29)
[2019-09-21] MEDS: THEOPHYLLINE ER (24 HR) 400 MG CAPSULE PO SCH (08:29)
[2019-09-21] MEDS: carvediloL 6.25 MG TABLET PO SCH ×2 (08:29→21:21)
[2019-09-21] MEDS: ENOXAPARIN 40 MG/0.4 ML SYRINGE SUBCUT SCH (08:29)
[2019-09-21] MEDS: BUDESONIDE/FORMOTEROL 160-4.5 INHALER 6 GM INH SCH ×2 (08:30→21:25)
[2019-09-21] MEDS: BISACODYL 10 MG SUPP RECTAL SCH (08:30)
[2019-09-21] MEDS: ZINC OXIDE PASTE 113 GM TUBE TOP SCH ×2 (08:30→21:25)
[2019-09-21 10:03] LABS: Basophils % 0.1 % (0.0-0.8); Eosinophils % 0.5 % (0.00-10.9); Hematocrit 41.5 VOL% (35.7-47.0); Immature Granulocytes % 1.4 %; Immature Granulocytes Absolute 0.12 #; Lymphocytes # 1.7 10*3/uL (1.4-4.0); Lymphocytes % 19.8 % (21.3-54.2); Mean Corpuscular HGB Conc 28.7 GM/DL (32-36); Mean Corpuscular Volume 99.8 FL (87-102); Mean Platelet Volume 10.9 FL (9.6-12.0); Monocytes % 6.5 % (1.7-12.7); Neutrophils % 71.7 % (38.7-73.9); Platelet Count 266 T/CUMM (130-400); Red Blood Count 4.16 MC/CUMM (3.8-5.5); White Blood Count 8.7 T/CUMM (4-12)
[2019-09-21 10:06] LABS: Hemoglobin 11.9 GM/DL (12.0-16.0)
[2019-09-21 10:14] LABS: Calcium 8.6 MG/DL (8.5-10.1); Osmolality,Calculated 286.3 MOS/KG (273-304)
[2019-09-21] MEDS: PROMETHAZINE 25 MG TABLET PO PRN (21:21)
[2019-09-22] MEDS: ALBUTEROL/IPRATROPIUM 3 ML NEB RESP TX SCH ×4 (00:41→18:50)
[2019-09-22 03:25] LABS: ABG Base Excess 6.3 MMOL/L (-2.5-2.5); ABG HCO3 30.1 MMOL/L (20-26); ABG Oxygen Saturation 95.7 % (95-100); ABG PH 7.242 (7.35-7.45); ABG PO2 86.3 MM HG (80-95)
[2019-09-22 07:05] LABS: Alanine Aminotransferase 15 U/L (13-56); Albumin 2.4 G/DL (3.4-5.0); Alkaline Phosphatase 33 U/L (45-117); Aspartate Amino Transferase 11 U/L (0-37); Bilirubin,Total < 0.39 MG/DL (0.2-1.0); Blood Urea Nitrogen 17 MG/DL (7-18); Calcium 8.4 MG/DL (8.5-10.1); Estimated Glom Filtration Rate 94 ML/MIN; Glucose 99 MG/DL (74-106); Total Protein 5.1 G/DL (6.4-8.3)
[2019-09-22] MEDS: INSULIN LISPRO 100 UNIT/ML SUBCUT SCH ×4 (07:22→20:48)
[2019-09-22] MEDS: carvediloL 6.25 MG TABLET PO SCH ×2 (08:35→20:49)
[2019-09-22] MEDS: PRAMIPEXOLE 0.25 MG TABLET PO SCH ×3 (08:35→20:49)
[2019-09-22] MEDS: MAGNESIUM OXIDE 400 MG TABLET PO SCH ×2 (08:35→20:49)
[2019-09-22] MEDS: MEGESTROL 40 MG TABLET PO SCH ×2 (08:35→20:49)
[2019-09-22] MEDS: THEOPHYLLINE ER (24 HR) 400 MG CAPSULE PO SCH (08:35)
[2019-09-22] MEDS: FENOFIBRATE 160 MG TABLET PO SCH (08:35)
[2019-09-22] MEDS: BUTALBITAL/ACETAMIN/CAFFEINE 50-325-40 MG TABLET PO SCH (08:36)
[2019-09-22] MEDS: LOSARTAN 25 MG TABLET PO SCH (08:36)
[2019-09-22] MEDS: GABAPENTIN 600 MG TABLET PO SCH ×3 (08:36→20:49)
[2019-09-22] MEDS: POTASSIUM CHLORIDE 20 MEQ TABLET PO SCH (08:36)
[2019-09-22] MEDS: LEVOTHYROXINE 50 MCG TABLET PO SCH (08:36)
[2019-09-22] MEDS: DOCUSATE SODIUM 100 MG CAPSULE PO SCH ×2 (08:36→20:49)
[2019-09-22] MEDS: predniSONE 20 MG TABLET PO SCH (08:36)
[2019-09-22] MEDS: TOPIRAMATE 25 MG TABLET PO SCH ×2 (08:37→20:49)
[2019-09-22] MEDS: ENOXAPARIN 40 MG/0.4 ML SYRINGE SUBCUT SCH (08:37)
[2019-09-22] MEDS: FERROUS SULFATE 325 MG TABLET PO SCH (08:37)
[2019-09-22] MEDS: ATORVASTATIN 40 MG TABLET PO SCH (08:37)
[2019-09-22] MEDS: ZINC OXIDE PASTE 113 GM TUBE TOP SCH ×2 (08:37→20:50)
[2019-09-22] MEDS: PANTOPRAZOLE 40 MG TABLET PO SCH (08:37)
[2019-09-22] MEDS: LACTULOSE 20 GM/30 ML UDCUP PO SCH ×4 (08:37→20:50)
[2019-09-22] MEDS: BUDESONIDE/FORMOTEROL 160-4.5 INHALER 6 GM INH SCH ×2 (08:38→20:49)
[2019-09-23] MEDS: ALBUTEROL/IPRATROPIUM 3 ML NEB RESP TX SCH ×4 (00:20→19:08)
[2019-09-23] MEDS: LACTULOSE 20 GM/30 ML UDCUP PO SCH ×5 (02:25→21:20)
[2019-09-23] MEDS: ACETAMINOPHEN 325 MG TABLET PO PRN (06:04)
[2019-09-23 06:29] LABS: Alanine Aminotransferase 14 U/L (13-56); Albumin 2.7 G/DL (3.4-5.0); Alkaline Phosphatase 36 U/L (45-117); Aspartate Amino Transferase 8 U/L (0-37); Bilirubin,Total < 0.39 MG/DL (0.2-1.0); Blood Urea Nitrogen 13 MG/DL (7-18); Calcium 8.7 MG/DL (8.5-10.1); Estimated Glom Filtration Rate 99 ML/MIN; Glucose 110 MG/DL (74-106); Osmolality,Calculated 283.1 MOS/KG (273-304); Total Protein 5.6 G/DL (6.4-8.3)
[2019-09-23 06:58] LABS: Basophils % 0.1 % (0.0-0.8); Eosinophils # 0.2 10*3/uL (0.0-0.87); Eosinophils % 2.3 % (0.00-10.9); Hematocrit 39.7 VOL% (35.7-47.0); Immature Granulocytes % 0.6 %; Immature Granulocytes Absolute 0.05 #; Lymphocytes # 2.8 10*3/uL (1.4-4.0); Lymphocytes % 31.4 % (21.3-54.2); Mean Corpuscular HGB Conc 28.7 GM/DL (32-36); Mean Corpuscular Volume 100.5 FL (87-102); Mean Platelet Volume 10.2 FL (9.6-12.0); Neutrophils % 58.6 % (38.7-73.9); Platelet Count 261 T/CUMM (130-400); Red Blood Count 3.95 MC/CUMM (3.8-5.5); Red Cell Distribution Width 19.2 % (9.3-17.3); White Blood Count 8.9 T/CUMM (4-12)
[2019-09-23 07:00] LABS: Hemoglobin 11.4 GM/DL (12.0-16.0)
[2019-09-23 08:04] LABS: Hypochromasia 1+; Macrocytosis 1+; Ovalocytes Slight; Platelet Estimate Normal
[2019-09-23] MEDS: INSULIN LISPRO 100 UNIT/ML SUBCUT SCH ×4 (08:49→21:21)
[2019-09-23] MEDS: ENOXAPARIN 40 MG/0.4 ML SYRINGE SUBCUT SCH (08:50)
[2019-09-23] MEDS: TOPIRAMATE 25 MG TABLET PO SCH ×2 (08:51→21:21)
[2019-09-23] MEDS: ATORVASTATIN 40 MG TABLET PO SCH (08:51)
[2019-09-23] MEDS: MAGNESIUM OXIDE 400 MG TABLET PO SCH ×2 (08:51→21:19)
[2019-09-23] MEDS: MEGESTROL 40 MG TABLET PO SCH ×2 (08:51→21:20)
[2019-09-23] MEDS: BUTALBITAL/ACETAMIN/CAFFEINE 50-325-40 MG TABLET PO SCH (08:51)
[2019-09-23] MEDS: LOSARTAN 25 MG TABLET PO SCH (08:51)
[2019-09-23] MEDS: carvediloL 6.25 MG TABLET PO SCH ×2 (08:51→21:20)
[2019-09-23] MEDS: FERROUS SULFATE 325 MG TABLET PO SCH (08:51)
[2019-09-23] MEDS: FENOFIBRATE 160 MG TABLET PO SCH (08:51)
[2019-09-23] MEDS: DOCUSATE SODIUM 100 MG CAPSULE PO SCH ×2 (08:51→21:19)
[2019-09-23] MEDS: PRAMIPEXOLE 0.25 MG TABLET PO SCH ×3 (08:52→21:19)
[2019-09-23] MEDS: PANTOPRAZOLE 40 MG TABLET PO SCH (08:52)
[2019-09-23] MEDS: GABAPENTIN 600 MG TABLET PO SCH ×3 (08:52→21:20)
[2019-09-23] MEDS: BISACODYL 10 MG SUPP RECTAL SCH (08:52)
[2019-09-23] MEDS: THEOPHYLLINE ER (24 HR) 400 MG CAPSULE PO SCH (08:52)
[2019-09-23] MEDS: LEVOTHYROXINE 50 MCG TABLET PO SCH (08:52)
[2019-09-23] MEDS: POTASSIUM CHLORIDE 20 MEQ TABLET PO SCH (08:52)
[2019-09-23] MEDS: predniSONE 20 MG TABLET PO SCH (08:52)
[2019-09-23] MEDS: BUDESONIDE/FORMOTEROL 160-4.5 INHALER 6 GM INH SCH ×2 (08:53→21:21)
[2019-09-23] MEDS: ZINC OXIDE PASTE 113 GM TUBE TOP SCH ×2 (08:53→21:20)
[2019-09-24] MEDS: ALBUTEROL/IPRATROPIUM 3 ML NEB RESP TX SCH ×4 (00:34→19:10)
[2019-09-24 06:54] LABS: Basophils % 0.1 % (0.0-0.8); Eosinophils # 0.2 10*3/uL (0.0-0.87); Eosinophils % 1.8 % (0.00-10.9); Hematocrit 38.3 VOL% (35.7-47.0); Immature Granulocytes % 0.4 %; Immature Granulocytes Absolute 0.04 #; Lymphocytes # 2.9 10*3/uL (1.4-4.0); Lymphocytes % 31.8 % (21.3-54.2); Mean Corpuscular HGB Conc 28.7 GM/DL (32-36); Mean Corpuscular Volume 101.1 FL (87-102); Monocytes % 8.7 % (1.7-12.7); Neutrophils % 57.2 % (38.7-73.9); Platelet Count 212 T/CUMM (130-400); Red Blood Count 3.79 MC/CUMM (3.8-5.5); Red Cell Distribution Width 19.5 % (9.3-17.3); White Blood Count 9.1 T/CUMM (4-12)
[2019-09-24 07:03] LABS: Hypochromasia 1+; Macrocytosis 1+; Ovalocytes Slight; Platelet Estimate Normal
[2019-09-24 08:02] LABS: ABG Base Excess 10.5 MMOL/L (-2.5-2.5); ABG HCO3 39.1 MMOL/L (20-26); ABG Oxygen Saturation 92.1 % (95-100); ABG PH 7.337 (7.35-7.45); ABG PO2 65.2 MM HG (80-95); ABG TCO2 41.4 MMOL/L (23-27); Allen Test Positive
[2019-09-24 08:04] LABS: ABG PCO2 74.6 MM HG (35-48)
[2019-09-24] MEDS: MAGNESIUM OXIDE 400 MG TABLET PO SCH ×2 (08:39→21:02)
[2019-09-24] MEDS: ATORVASTATIN 40 MG TABLET PO SCH (08:40)
[2019-09-24] MEDS: THEOPHYLLINE ER (24 HR) 400 MG CAPSULE PO SCH (08:40)
[2019-09-24] MEDS: TOPIRAMATE 25 MG TABLET PO SCH ×2 (08:40→21:02)
[2019-09-24] MEDS: PRAMIPEXOLE 0.25 MG TABLET PO SCH ×3 (08:40→21:02)
[2019-09-24] MEDS: DOCUSATE SODIUM 100 MG CAPSULE PO SCH ×2 (08:40→21:02)
[2019-09-24] MEDS: carvediloL 6.25 MG TABLET PO SCH ×2 (08:40→21:03)
[2019-09-24] MEDS: FENOFIBRATE 160 MG TABLET PO SCH (08:41)
[2019-09-24] MEDS: PANTOPRAZOLE 40 MG TABLET PO SCH (08:41)
[2019-09-24] MEDS: LEVOTHYROXINE 50 MCG TABLET PO SCH (08:41)
[2019-09-24] MEDS: predniSONE 20 MG TABLET PO SCH (08:42)
[2019-09-24] MEDS: FERROUS SULFATE 325 MG TABLET PO SCH (08:42)
[2019-09-24] MEDS: BUTALBITAL/ACETAMIN/CAFFEINE 50-325-40 MG TABLET PO SCH (08:42)
[2019-09-24] MEDS: LOSARTAN 25 MG TABLET PO SCH (08:42)
[2019-09-24] MEDS: GABAPENTIN 600 MG TABLET PO SCH ×3 (08:43→21:02)
[2019-09-24] MEDS: MEGESTROL 40 MG TABLET PO SCH ×2 (08:43→21:03)
[2019-09-24] MEDS: POTASSIUM CHLORIDE 20 MEQ TABLET PO SCH (08:43)
[2019-09-24] MEDS: LACTULOSE 20 GM/30 ML UDCUP PO SCH ×4 (08:43→21:02)
[2019-09-24] MEDS: ZINC OXIDE PASTE 113 GM TUBE TOP SCH ×2 (08:45→21:03)
[2019-09-24] MEDS: BUDESONIDE/FORMOTEROL 160-4.5 INHALER 6 GM INH SCH ×2 (08:46→21:03)
[2019-09-24] MEDS: INSULIN LISPRO 100 UNIT/ML SUBCUT SCH ×4 (08:53→21:01)
[2019-09-24] MEDS: ENOXAPARIN 40 MG/0.4 ML SYRINGE SUBCUT SCH (09:48)
[2019-09-24 17:44] LABS: ABG Base Excess 10.1 MMOL/L (-2.5-2.5); ABG HCO3 33.7 MMOL/L (20-26); ABG Oxygen Saturation 92.6 % (95-100); ABG PH 7.296 (7.35-7.45); ABG PO2 70.8 MM HG (80-95); ABG TCO2 36.4 MMOL/L (23-27); Allen Test Positive
[2019-09-25] MEDS: ALBUTEROL/IPRATROPIUM 3 ML NEB RESP TX SCH ×2 (00:25→07:00)
[2019-09-25 04:35] LABS: ABG Base Excess 7.9 MMOL/L (-2.5-2.5); ABG HCO3 34.8 MMOL/L (20-26); ABG Oxygen Saturation 95.8 % (95-100); ABG PCO2 60.2 MM HG (35-48); ABG PO2 80.1 MM HG (80-95); ABG TCO2 36.7 MMOL/L (23-27); Allen Test Positive; Pt O2 Delivery Device CPAP
[2019-09-25 06:12] LABS: Basophils % 0.1 % (0.0-0.8); Eosinophils # 0.1 10*3/uL (0.0-0.87); Eosinophils % 1.6 % (0.00-10.9); Hematocrit 38.9 VOL% (35.7-47.0); Immature Granulocytes % 0.6 %; Immature Granulocytes Absolute 0.05 #; Lymphocytes # 2.9 10*3/uL (1.4-4.0); Lymphocytes % 35.9 % (21.3-54.2); Mean Corpuscular HGB Conc 28.8 GM/DL (32-36); Mean Corpuscular Volume 100.8 FL (87-102); Mean Platelet Volume 10.9 FL (9.6-12.0); Monocytes % 7.4 % (1.7-12.7); Neutrophils % 54.4 % (38.7-73.9); Platelet Count 273 T/CUMM (130-400); Red Blood Count 3.86 MC/CUMM (3.8-5.5); Red Cell Distribution Width 19.3 % (9.3-17.3); White Blood Count 7.9 T/CUMM (4-12)
[2019-09-25 06:15] LABS: Hemoglobin 11.2 GM/DL (12.0-16.0)
[2019-09-25 06:26] LABS: Hypochromasia 1+; Ovalocytes Slight; Platelet Estimate Adequate
[2019-09-25 06:27] LABS: Macrocytosis Slight
[2019-09-25] MEDS: INSULIN LISPRO 100 UNIT/ML SUBCUT SCH (08:11)
[2019-09-25] MEDS: MAGNESIUM OXIDE 400 MG TABLET PO SCH (08:23)
[2019-09-25] MEDS: PRAMIPEXOLE 0.25 MG TABLET PO SCH (08:23)
[2019-09-25] MEDS: THEOPHYLLINE ER (24 HR) 400 MG CAPSULE PO SCH (08:23)
[2019-09-25] MEDS: FERROUS SULFATE 325 MG TABLET PO SCH (08:24)
[2019-09-25] MEDS: LEVOTHYROXINE 50 MCG TABLET PO SCH (08:24)
[2019-09-25] MEDS: FENOFIBRATE 160 MG TABLET PO SCH (08:24)
[2019-09-25] MEDS: GABAPENTIN 600 MG TABLET PO SCH (08:27)
[2019-09-25] MEDS: DOCUSATE SODIUM 100 MG CAPSULE PO SCH (08:27)
[2019-09-25] MEDS: predniSONE 20 MG TABLET PO SCH (08:27)
[2019-09-25] MEDS: PANTOPRAZOLE 40 MG TABLET PO SCH (08:27)
[2019-09-25] MEDS: TOPIRAMATE 25 MG TABLET PO SCH (08:27)
[2019-09-25] MEDS: POTASSIUM CHLORIDE 20 MEQ TABLET PO SCH (08:28)
[2019-09-25] MEDS: LACTULOSE 20 GM/30 ML UDCUP PO SCH (08:28)
[2019-09-25] MEDS: carvediloL 6.25 MG TABLET PO SCH (08:28)
[2019-09-25] MEDS: ENOXAPARIN 40 MG/0.4 ML SYRINGE SUBCUT SCH (08:28)
[2019-09-25] MEDS: LOSARTAN 25 MG TABLET PO SCH (08:28)
[2019-09-25] MEDS: MEGESTROL 40 MG TABLET PO SCH (08:28)
[2019-09-25] MEDS: ATORVASTATIN 40 MG TABLET PO SCH (08:35)
[2019-09-25] MEDS: BUTALBITAL/ACETAMIN/CAFFEINE 50-325-40 MG TABLET PO SCH (08:35)
[2019-09-25] MEDS: ZINC OXIDE PASTE 113 GM TUBE TOP SCH (08:35)
[2019-09-25] MEDS: BISACODYL 10 MG SUPP RECTAL SCH (08:35)
[2019-09-25] MEDS: BUDESONIDE/FORMOTEROL 160-4.5 INHALER 6 GM INH SCH (08:35)
[2019-09-25 09:26] VITALS: BP 155/66
== END 2019-09-25 10:40 | DRG 189 ==
LOC: N.ED 05:41 → N.EDINP 08:27 → N.4E 09:12
PROVIDERS: ADMIT Internal Medicine; ATTEND Internal Medicine

== ENCOUNTER 2019-10-15 09:41 | Inpatient (IN) ==
[2019-10-15 10:46] LABS: Immature Granulocytes Absolute 0.06 #; Red Cell Distribution Width 17.4 % (9.3-17.3)
[2019-10-15 10:53] LABS: PT Patient Result 11.3 SECS (9.6-12.2); Partial Thromboplastin Time 21.2 SECS (20.8-36.0)
[2019-10-15 10:55] LABS: Barbiturates Screen,Urine Positive (Negative); Benzodiazepines Screen,Urine Negative (Negative); Cannabinoid Screen,Urine Negative (Negative); Opiate Screen,Urine Negative (Negative); Phencyclidine Screen,Urine Negative (Negative)
[2019-10-15 10:56] LABS: Amorphous Crystals,Urine Few /HPF (Few); Apearance,Urine CLOUDY (Clear); Bilirubin,Urine Negative (Negative); Blood, Urine Negative (Negative); Glucose,Urine (UA) Negative (Negative); Hyaline Casts,Urine 82 /LPF (0-3); Ketones,Urine Negative (Negative); Mucus,Urine Moderate /LPF (Occasional); Nitrite,Urine Negative (Negative); Protein,Urine 30 MG/DL; RBC,Urine <1 /HPF (0-4); Squamous Epithelial Cell,Urine Occasional /HPF (0-10); Urine Color Amber (Yellow); WBC,Urine 25 /HPF (0-6)
[2019-10-15 10:58] LABS: Alanine Aminotransferase 91 U/L (13-56); Albumin 3.3 G/DL (3.4-5.0); Alkaline Phosphatase 72 U/L (45-117); Aspartate Amino Transferase 73 U/L (0-37); Bilirubin,Total < 0.39 MG/DL (0.2-1.0); Blood Urea Nitrogen 13 MG/DL (7-18); Calcium 9.5 MG/DL (8.5-10.1); Estimated Glom Filtration Rate 74 ML/MIN; Glucose 153 MG/DL (74-106); Osmolality,Calculated 290.7 MOS/KG (273-304); Total Protein 6.3 G/DL (6.4-8.3)
[2019-10-15 11:05] LABS: Basophils % 0.4 % (0.0-0.8); Eosinophils % 0.3 % (0.00-10.9); Hematocrit 48.5 VOL% (35.7-47.0); Immature Granulocytes % 0.8 %; Lymphocytes # 1.5 10*3/uL (1.4-4.0); Lymphocytes % 19.3 % (21.3-54.2); Mean Corpuscular HGB Conc 27.8 GM/DL (32-36); Mean Platelet Volume 11.1 FL (9.6-12.0); Monocytes % 8.7 % (1.7-12.7); Neutrophils % 70.5 % (38.7-73.9); Platelet Count 314 T/CUMM (130-400); Red Blood Count 4.45 MC/CUMM (3.8-5.5); White Blood Count 7.9 T/CUMM (4-12)
[2019-10-15 11:06] LABS: Hemoglobin 13.5 GM/DL (12.0-16.0)
[2019-10-15 11:08] LABS: Hypochromasia 1+; Platelet Estimate Adequate
[2019-10-15 11:09] LABS: Macrocytosis Slight
[2019-10-15] MEDS ORDERED: MEROPENEM 1,000 MG in SODIUM CHLORIDE 0.9% 100 ML IV STA (11:32)
[2019-10-15] MEDS ORDERED: MEROPENEM 500 MG VIAL ONE (11:37)
[2019-10-15 12:23] LABS: ABG Base Excess 5.7 MMOL/L (-2.5-2.5); ABG HCO3 29.3 MMOL/L (20-26); ABG Oxygen Saturation 87.7 % (95-100); ABG PO2 60.9 MM HG (80-95); ABG TCO2 35.1 MMOL/L (23-27)
[2019-10-15 12:27] LABS: ABG PH 7.198 (7.35-7.45)
[2019-10-15] MEDS ORDERED: ONDANSETRON 4 MG/2 ML VIAL IV PRN (13:38)
[2019-10-15] MEDS: LACTULOSE 20 GM/30 ML UDCUP PO SCH ×3 (14:15→23:01)
[2019-10-15] MEDS: SODIUM CHLORIDE 0.9% 1,000 ML IV SCH ×2 (14:18→23:03)
[2019-10-15] MEDS: MEROPENEM 500 MG in SODIUM CHLORIDE 0.9% 100 ML IV SCH (14:44)
[2019-10-15] MEDS: methylPREDNISolone SOD SUC 40 MG/1 ML VIAL IV SCH ×2 (15:45→23:01)
[2019-10-15] MEDS: INSULIN REGULAR 100 UNIT/ML SUBCUT SCH ×2 (17:03→23:03)
[2019-10-15] MEDS ORDERED: DEXTROSE 10% 250 ML BAG IV PRN (18:35)
[2019-10-15] MEDS ORDERED: GLUCAGON 1 MG VIAL IM PRN (18:35)
[2019-10-15] MEDS: ALBUTEROL/IPRATROPIUM 3 ML NEB RESP TX SCH (20:42)
[2019-10-15] MEDS: DOCUSATE SODIUM 100 MG CAPSULE PO SCH (23:03)
[2019-10-15] MEDS ORDERED: BISACODYL 5 MG TABLET PO PRN (23:19)
[2019-10-15] MEDS ORDERED: BISACODYL 10 MG SUPP RECTAL PRN (23:19)
[2019-10-15] MEDS ORDERED: traMADol 50 MG TABLET PO PRN (23:19)
[2019-10-15] MEDS ORDERED: MAGNESIUM HYDROXIDE SUSP 30 ML UDCUP PO PRN (23:19)
[2019-10-15] MEDS ORDERED: ALUMINUM/MAGNES/SIMETH MAX STR 30 ML UDCUP PO PRN (23:19)
[2019-10-15] MEDS ORDERED: BUTALBITAL/ACETAMIN/CAFFEINE 50-325-40 MG TABLET PO PRN (23:34)
[2019-10-16] MEDS: MEROPENEM 500 MG in SODIUM CHLORIDE 0.9% 100 ML IV SCH ×4 (00:10→21:55)
[2019-10-16] MEDS: ALBUTEROL/IPRATROPIUM 3 ML NEB RESP TX SCH ×4 (01:10→19:16)
[2019-10-16] MEDS: ERGOCALCIFEROL 50,000 UNIT CAPSULE PO SCH (01:11)
[2019-10-16] MEDS ORDERED: ALBUTEROL 2.5 MG/3 ML NEB RESP TX PRN (03:00)
[2019-10-16 05:05] LABS: ABG Base Excess 8.5 MMOL/L (-2.5-2.5); ABG HCO3 31.8 MMOL/L (20-26); ABG Oxygen Saturation 76.1 % (95-100); ABG PCO2 60.2 MM HG (35-48); ABG PH 7.383 (7.35-7.45); ABG PO2 41.1 MM HG (80-95); Allen Test Positive; Pt O2 Delivery Device BIPAP
[2019-10-16 05:12] LABS: Basophils % 0.4 % (0.0-0.8); Eosinophils # 0.1 10*3/uL (0.0-0.87); Hematocrit 42.2 VOL% (35.7-47.0); Immature Granulocytes % 0.6 %; Immature Granulocytes Absolute 0.04 #; Lymphocytes # 2.1 10*3/uL (1.4-4.0); Lymphocytes % 29.4 % (21.3-54.2); Mean Corpuscular HGB Conc 28.2 GM/DL (32-36); Mean Corpuscular Volume 107.1 FL (87-102); Mean Platelet Volume 11.3 FL (9.6-12.0); Monocytes % 9.7 % (1.7-12.7); Neutrophils % 58.9 % (38.7-73.9); Platelet Count 271 T/CUMM (130-400); Red Blood Count 3.94 MC/CUMM (3.8-5.5); Red Cell Distribution Width 17.2 % (9.3-17.3); White Blood Count 7.1 T/CUMM (4-12)
[2019-10-16 05:29] LABS: Calcium 9.1 MG/DL (8.5-10.1); Osmolality,Calculated 291.4 MOS/KG (273-304)
[2019-10-16 05:45] LABS: Hemoglobin 12.2 GM/DL (12.0-16.0)
[2019-10-16 05:48] LABS: Hypochromasia 1+; Platelet Estimate Adequate
[2019-10-16 05:49] LABS: Macrocytosis Slight; Ovalocytes Slight
[2019-10-16] MEDS: LACTULOSE 20 GM/30 ML UDCUP PO SCH ×3 (06:03→19:07)
[2019-10-16 06:42] LABS: ABG PCO2 99.9 MM HG (35-48)
[2019-10-16] MEDS: methylPREDNISolone SOD SUC 40 MG/1 ML VIAL IV SCH ×3 (07:28→21:55)
[2019-10-16] MEDS: LEVOTHYROXINE 50 MCG TABLET PO SCH (07:29)
[2019-10-16] MEDS: INSULIN REGULAR 100 UNIT/ML SUBCUT SCH ×4 (08:17→21:28)
[2019-10-16] MEDS ORDERED: LACTULOSE 20 GM/30 ML UDCUP PO SCH (09:00)
[2019-10-16] MEDS: FERROUS SULFATE 325 MG TABLET PO SCH (09:18)
[2019-10-16] MEDS: FUROSEMIDE 40 MG/4 ML VIAL IV SCH (09:18)
[2019-10-16] MEDS: MAGNESIUM OXIDE 400 MG TABLET PO SCH ×2 (09:18→21:28)
[2019-10-16] MEDS: PANTOPRAZOLE 40 MG TABLET PO SCH (09:18)
[2019-10-16] MEDS: POTASSIUM CHLORIDE 20 MEQ TABLET PO SCH (09:18)
[2019-10-16] MEDS: THEOPHYLLINE ER (24 HR) 400 MG CAPSULE PO SCH (09:19)
[2019-10-16] MEDS: MEGESTROL 40 MG TABLET PO SCH ×2 (09:19→21:27)
[2019-10-16] MEDS: BUDESONIDE/FORMOTEROL 160-4.5 INHALER 6 GM INH SCH ×2 (09:19→21:30)
[2019-10-16] MEDS: DOCUSATE SODIUM 100 MG CAPSULE PO SCH ×2 (09:47→21:28)
[2019-10-16] MEDS: ZINC OXIDE PASTE 113 GM TUBE TOP SCH ×2 (09:48→21:54)
[2019-10-16] MEDS: SODIUM CHLORIDE 0.9% 1,000 ML IV SCH ×2 (15:04→21:25)
[2019-10-16] MEDS: TOPIRAMATE 25 MG TABLET PO SCH (21:27)
[2019-10-16] MEDS: ATORVASTATIN 20 MG TABLET PO SCH (21:54)
[2019-10-17] MEDS: ALBUTEROL/IPRATROPIUM 3 ML NEB RESP TX SCH ×4 (00:35→19:02)
[2019-10-17] MEDS: LACTULOSE 20 GM/30 ML UDCUP PO SCH ×5 (01:50→23:02)
[2019-10-17] MEDS: LEVOTHYROXINE 50 MCG TABLET PO SCH (05:53)
[2019-10-17] MEDS: MEROPENEM 500 MG in SODIUM CHLORIDE 0.9% 100 ML IV SCH ×3 (05:53→22:44)
[2019-10-17] MEDS: methylPREDNISolone SOD SUC 40 MG/1 ML VIAL IV SCH ×3 (05:53→22:45)
[2019-10-17] MEDS: PANTOPRAZOLE 40 MG TABLET PO SCH (10:10)
[2019-10-17] MEDS: DOCUSATE SODIUM 100 MG CAPSULE PO SCH ×2 (10:10→20:19)
[2019-10-17] MEDS: MEGESTROL 40 MG TABLET PO SCH ×2 (10:10→20:19)
[2019-10-17] MEDS: ZINC OXIDE PASTE 113 GM TUBE TOP SCH ×2 (10:10→20:19)
[2019-10-17] MEDS: FERROUS SULFATE 325 MG TABLET PO SCH (10:10)
[2019-10-17] MEDS: POTASSIUM CHLORIDE 20 MEQ TABLET PO SCH (10:10)
[2019-10-17] MEDS: INSULIN REGULAR 100 UNIT/ML SUBCUT SCH ×4 (10:10→20:20)
[2019-10-17] MEDS: BISACODYL 10 MG SUPP RECTAL SCH (10:10)
[2019-10-17] MEDS: THEOPHYLLINE ER (24 HR) 400 MG CAPSULE PO SCH (10:11)
[2019-10-17] MEDS: MAGNESIUM OXIDE 400 MG TABLET PO SCH ×2 (10:11→20:19)
[2019-10-17] MEDS: FUROSEMIDE 40 MG/4 ML VIAL IV SCH (10:11)
[2019-10-17] MEDS: BUDESONIDE/FORMOTEROL 160-4.5 INHALER 6 GM INH SCH ×2 (10:11→20:19)
[2019-10-17] MEDS: SODIUM CHLORIDE 0.9% 1,000 ML IV SCH (12:18)
[2019-10-17] MEDS: TOPIRAMATE 25 MG TABLET PO SCH (20:19)
[2019-10-17] MEDS: ATORVASTATIN 20 MG TABLET PO SCH (20:19)
[2019-10-18] MEDS: ALBUTEROL/IPRATROPIUM 3 ML NEB RESP TX SCH ×4 (00:07→19:50)
[2019-10-18] MEDS: SODIUM CHLORIDE 0.9% 1,000 ML IV SCH ×2 (01:39→16:18)
[2019-10-18 04:37] LABS: Basophils % 0.3 % (0.0-0.8); Eosinophils % 0.1 % (0.00-10.9); Hematocrit 37.4 VOL% (35.7-47.0); Hemoglobin 11.7 GM/DL (12.0-16.0); Immature Granulocytes % 0.4 %; Immature Granulocytes Absolute 0.03 #; Lymphocytes # 1.8 10*3/uL (1.4-4.0); Lymphocytes % 24.9 % (21.3-54.2); Mean Corpuscular HGB Conc 31.3 GM/DL (32-36); Mean Corpuscular Volume 98.4 FL (87-102); Mean Platelet Volume 11.3 FL (9.6-12.0); Monocytes % 9.5 % (1.7-12.7); Neutrophils % 64.8 % (38.7-73.9); Platelet Count 294 T/CUMM (130-400); Red Cell Distribution Width 16.8 % (9.3-17.3); White Blood Count 7.2 T/CUMM (4-12)
[2019-10-18 04:43] LABS: Calcium 8.6 MG/DL (8.5-10.1); Osmolality,Calculated 284.8 MOS/KG (273-304)
[2019-10-18] MEDS: MEROPENEM 500 MG in SODIUM CHLORIDE 0.9% 100 ML IV SCH ×3 (05:37→21:58)
[2019-10-18] MEDS: methylPREDNISolone SOD SUC 40 MG/1 ML VIAL IV SCH ×3 (05:38→21:57)
[2019-10-18] MEDS: LACTULOSE 20 GM/30 ML UDCUP PO SCH ×3 (05:38→18:24)
[2019-10-18] MEDS: LEVOTHYROXINE 50 MCG TABLET PO SCH (05:38)
[2019-10-18] MEDS: THEOPHYLLINE ER (24 HR) 400 MG CAPSULE PO SCH (08:34)
[2019-10-18] MEDS: INSULIN REGULAR 100 UNIT/ML SUBCUT SCH ×4 (08:34→21:32)
[2019-10-18] MEDS: POTASSIUM CHLORIDE 20 MEQ TABLET PO SCH (08:34)
[2019-10-18] MEDS: MEGESTROL 40 MG TABLET PO SCH ×2 (08:34→21:57)
[2019-10-18] MEDS: DOCUSATE SODIUM 100 MG CAPSULE PO SCH ×2 (08:34→21:57)
[2019-10-18] MEDS: PANTOPRAZOLE 40 MG TABLET PO SCH (08:35)
[2019-10-18] MEDS: MAGNESIUM OXIDE 400 MG TABLET PO SCH ×2 (08:35→21:57)
[2019-10-18] MEDS: FERROUS SULFATE 325 MG TABLET PO SCH (08:35)
[2019-10-18] MEDS: BUDESONIDE/FORMOTEROL 160-4.5 INHALER 6 GM INH SCH ×2 (08:35→22:00)
[2019-10-18] MEDS: ZINC OXIDE PASTE 113 GM TUBE TOP SCH ×2 (08:35→21:59)
[2019-10-18] MEDS: FUROSEMIDE 40 MG/4 ML VIAL IV SCH (08:37)
[2019-10-18] MEDS: ATORVASTATIN 20 MG TABLET PO SCH (21:57)
[2019-10-18] MEDS: TOPIRAMATE 25 MG TABLET PO SCH (21:57)
[2019-10-18] MEDS ORDERED: POTASSIUM CHLORIDE 20 MEQ TABLET PO ONE (23:00)
[2019-10-19] MEDS: ALBUTEROL/IPRATROPIUM 3 ML NEB RESP TX SCH ×2 (00:24→07:39)
[2019-10-19] MEDS: LACTULOSE 20 GM/30 ML UDCUP PO SCH ×3 (00:41→11:06)
[2019-10-19] MEDS: LEVOTHYROXINE 50 MCG TABLET PO SCH (05:58)
[2019-10-19] MEDS: MEROPENEM 500 MG in SODIUM CHLORIDE 0.9% 100 ML IV SCH (05:58)
[2019-10-19 06:06] LABS: Calcium 9.1 MG/DL (8.5-10.1); Osmolality,Calculated 282.1 MOS/KG (273-304)
[2019-10-19] MEDS: methylPREDNISolone SOD SUC 40 MG/1 ML VIAL IV SCH (06:07)
[2019-10-19] MEDS ORDERED: POTASSIUM CHLORIDE 20 MEQ TABLET PO ONE (07:00)
[2019-10-19] MEDS ORDERED: POTASSIUM CHLORIDE 20 MEQ TABLET PO SCH (09:00)
[2019-10-19] MEDS: FERROUS SULFATE 325 MG TABLET PO SCH (09:04)
[2019-10-19] MEDS: THEOPHYLLINE ER (24 HR) 400 MG CAPSULE PO SCH (09:04)
[2019-10-19] MEDS: ERGOCALCIFEROL 50,000 UNIT CAPSULE PO SCH (09:04)
[2019-10-19] MEDS: DOCUSATE SODIUM 100 MG CAPSULE PO SCH (09:05)
[2019-10-19] MEDS: PANTOPRAZOLE 40 MG TABLET PO SCH (09:05)
[2019-10-19] MEDS: MAGNESIUM OXIDE 400 MG TABLET PO SCH (09:05)
[2019-10-19] MEDS: MEGESTROL 40 MG TABLET PO SCH (09:05)
[2019-10-19] MEDS: FUROSEMIDE 40 MG/4 ML VIAL IV SCH (09:06)
[2019-10-19] MEDS: BISACODYL 10 MG SUPP RECTAL SCH (09:07)
[2019-10-19] MEDS: INSULIN REGULAR 100 UNIT/ML SUBCUT SCH ×2 (09:08→12:00)
[2019-10-19] MEDS: ZINC OXIDE PASTE 113 GM TUBE TOP SCH (09:08)
[2019-10-19] MEDS: BUDESONIDE/FORMOTEROL 160-4.5 INHALER 6 GM INH SCH (09:08)
[2019-10-19 12:08] VITALS: BP 137/74
== END 2019-10-19 13:14 | disposition home health service (06) | DRG 189 ==
LOC: EDBD → EDUNIT# → N.ED 09:41 → N.EDINP 11:35 → N.5E 13:16
PROVIDERS: ADMIT Internal Medicine; ATTEND Internal Medicine

== ENCOUNTER 2019-10-25 09:43 | Inpatient (IN) ==
[2019-10-25] MEDS ORDERED: SODIUM CHLORIDE 0.9% 1,000 ML IV STA (09:53)
[2019-10-25] MEDS ORDERED: ROCURONIUM 100 MG/10 ML VIAL IV ONE ×2 (09:54→09:55)
[2019-10-25] MEDS ORDERED: ETOMIDATE 20 MG/10 ML VIAL IV ONE ×2 (09:54)
[2019-10-25 10:20] LABS: ABG Base Excess -5.2 MMOL/L (-2.5-2.5); ABG HCO3 20.2 MMOL/L (20-26); ABG Oxygen Saturation 99.6 % (95-100); ABG PCO2 37.5 MM HG (35-48); ABG PH 7.337 (7.35-7.45); ABG TCO2 17.3 MMOL/L (23-27)
[2019-10-25] MEDS ORDERED: LORazepam 2 MG/1 ML VIAL ONE (11:29)
[2019-10-25] MEDS ORDERED: levETIRAcetam 500 MG/5 ML VIAL IV ONE (11:31)
[2019-10-25 11:34] LABS: Basophils % 0.5 % (0.0-0.8); Eosinophils # 0.1 10*3/uL (0.0-0.87); Eosinophils % 1.6 % (0.00-10.9); Hemoglobin 15.7 GM/DL (12.0-16.0); Immature Granulocytes % 0.5 %; Immature Granulocytes Absolute 0.04 #; Lymphocytes # 1.1 10*3/uL (1.4-4.0); Lymphocytes % 12.7 % (21.3-54.2); Mean Corpuscular HGB Conc 31.4 GM/DL (32-36); Mean Corpuscular Volume 97.1 FL (87-102); Mean Platelet Volume 11.3 FL (9.6-12.0); Monocytes % 7.6 % (1.7-12.7); Neutrophils % 77.1 % (38.7-73.9); Platelet Count 260 T/CUMM (130-400); Red Blood Count 5.15 MC/CUMM (3.8-5.5); Red Cell Distribution Width 15.3 % (9.3-17.3); White Blood Count 8.7 T/CUMM (4-12)
[2019-10-25] MEDS ORDERED: LORazepam 2 MG/1 ML VIAL IV STA (11:37)
[2019-10-25 11:41] LABS: INR 0.9; Partial Thromboplastin Time 22.9 SECS (20.8-36.0)
[2019-10-25 11:55] LABS: Albumin 3.7 G/DL (3.4-5.0); Bilirubin,Total 0.9 MG/DL (0.2-1.0); Calcium 10.1 MG/DL (8.5-10.1); Osmolality,Calculated 271.1 MOS/KG (273-304); Total Protein 8.2 G/DL (6.4-8.3)
[2019-10-25 12:45] LABS: Amorphous Crystals,Urine Occasional /HPF (Few); Apearance,Urine CLEAR (Clear); Bacteria,Urine Occasional /HPF (Few); Bilirubin,Urine Negative (Negative); Blood, Urine Negative (Negative); Glucose,Urine (UA) 50 mg/dL (Negative); Hyaline Casts,Urine 3 /LPF (0-3); Ketones,Urine Negative (Negative); Mucus,Urine Occasional /LPF (Occasional); Nitrite,Urine Negative (Negative); Protein,Urine 100 MG/DL; RBC,Urine 1 /HPF (0-4); Squamous Epithelial Cell,Urine Occasional /HPF (0-10); Urine Color Yellow (Yellow); Urine Specific Gravity 1.013 (1.001-1.035); Urine Urobilinogen < 2.0 EU/DL (0.2-1.0); WBC,Urine 1 /HPF (0-6)
[2019-10-25 12:54] LABS: Barbiturates Screen,Urine Negative (Negative); Benzodiazepines Screen,Urine Positive (Negative); Cannabinoid Screen,Urine Negative (Negative); Opiate Screen,Urine Negative (Negative); Phencyclidine Screen,Urine Negative (Negative)
[2019-10-25] MEDS ORDERED: ONDANSETRON 4 MG/2 ML VIAL IV PRN (13:06)
[2019-10-25] MEDS ORDERED: ACETAMINOPHEN 325 MG TABLET PO PRN (13:06)
[2019-10-25] MEDS: LACTULOSE 20 GM/30 ML UDCUP NG SCH ×3 (14:55→21:11)
[2019-10-25] MEDS: SODIUM CHLORIDE 0.9% 1,000 ML IV SCH ×2 (14:55→23:19)
[2019-10-25] MEDS: methylPREDNISolone SOD SUC 40 MG/1 ML VIAL IV SCH ×2 (14:55→21:11)
[2019-10-25] MEDS ORDERED: DEXTROSE 10% 250 ML BAG IV PRN (15:34)
[2019-10-25] MEDS ORDERED: GLUCAGON 1 MG VIAL IM PRN (15:34)
[2019-10-25] MEDS: hydrALAZINE 20 MG/1 ML VIAL IV PRN (17:36)
[2019-10-25] MEDS: cloNIDine 0.1 MG/24 HR PATCH TRANSDERM SCH (17:39)
[2019-10-25] MEDS: INSULIN REGULAR 100 UNIT/ML SUBCUT SCH (17:49)
[2019-10-25] MEDS: ALBUTEROL/IPRATROPIUM 3 ML NEB RESP TX SCH (19:52)
[2019-10-25] MEDS ORDERED: INSULIN REGULAR 100 UNIT/ML SUBCUT SCH (21:00)
[2019-10-25] MEDS: DOCUSATE SODIUM 100 MG CAPSULE PO SCH (21:11)
[2019-10-26] MEDS: INSULIN REGULAR 100 UNIT/ML SUBCUT SCH ×4 (00:01→18:17)
[2019-10-26] MEDS: ALBUTEROL/IPRATROPIUM 3 ML NEB RESP TX SCH ×4 (00:40→19:44)
[2019-10-26] MEDS: LACTULOSE 20 GM/30 ML UDCUP NG SCH ×6 (03:53→21:01)
[2019-10-26 04:39] LABS: ABG Base Excess -2.5 MMOL/L (-2.5-2.5); ABG HCO3 22.4 MMOL/L (20-26); ABG Oxygen Saturation 99.3 % (95-100); ABG PCO2 36.8 MM HG (35-48); ABG PH 7.385 (7.35-7.45); ABG TCO2 18.9 MMOL/L (23-27); Allen Test Positive; Pt O2 Delivery Device Ventilator
[2019-10-26 06:39] LABS: Alanine Aminotransferase 26 U/L (13-56); Albumin 2.9 G/DL (3.4-5.0); Alkaline Phosphatase 51 U/L (45-117); Aspartate Amino Transferase 18 U/L (0-37); Bilirubin,Total < 0.39 MG/DL (0.2-1.0); Blood Urea Nitrogen 10 MG/DL (7-18); Calcium 8.5 MG/DL (8.5-10.1); Estimated Glom Filtration Rate 75 ML/MIN; Total Protein 5.7 G/DL (6.4-8.3)
[2019-10-26 06:40] LABS: Glucose 137 MG/DL (74-106); Osmolality,Calculated 281.3 MOS/KG (273-304)
[2019-10-26] MEDS: methylPREDNISolone SOD SUC 40 MG/1 ML VIAL IV SCH ×3 (06:40→20:57)
[2019-10-26 06:41] LABS: Prealbumin 16.6 MG/DL (20-40)
[2019-10-26 06:58] LABS: Basophils % 0.1 % (0.0-0.8); Eosinophils % 0.1 % (0.00-10.9); Hematocrit 43.6 VOL% (35.7-47.0); Immature Granulocytes % 0.7 %; Immature Granulocytes Absolute 0.07 #; Lymphocytes # 1.5 10*3/uL (1.4-4.0); Lymphocytes % 15.3 % (21.3-54.2); Mean Corpuscular HGB Conc 30.3 GM/DL (32-36); Mean Corpuscular Volume 99.3 FL (87-102); Mean Platelet Volume 11.1 FL (9.6-12.0); Monocytes % 8.1 % (1.7-12.7); Neutrophils % 75.7 % (38.7-73.9); Platelet Count 224 T/CUMM (130-400); Red Blood Count 4.39 MC/CUMM (3.8-5.5); Red Cell Distribution Width 15.5 % (9.3-17.3)
[2019-10-26 06:59] LABS: Hemoglobin 13.2 GM/DL (12.0-16.0)
[2019-10-26] MEDS: SODIUM CHLORIDE 0.9% 1,000 ML IV SCH ×3 (07:15→16:25)
[2019-10-26] MEDS: DOCUSATE SODIUM 100 MG CAPSULE PO SCH ×2 (09:20→20:57)
[2019-10-26] MEDS: PANTOPRAZOLE 40 MG TABLET PO SCH (09:20)
[2019-10-27] MEDS: SODIUM CHLORIDE 0.9% 1,000 ML IV SCH ×5 (00:08→20:24)
[2019-10-27] MEDS: INSULIN REGULAR 100 UNIT/ML SUBCUT SCH ×4 (00:14→19:02)
[2019-10-27] MEDS: ALBUTEROL/IPRATROPIUM 3 ML NEB RESP TX SCH ×4 (00:19→20:23)
[2019-10-27] MEDS: LACTULOSE 20 GM/30 ML UDCUP NG SCH ×2 (02:58→05:51)
[2019-10-27 04:26] LABS: ABG Base Excess -4.5 MMOL/L (-2.5-2.5); ABG HCO3 20.7 MMOL/L (20-26); ABG Oxygen Saturation 98.5 % (95-100); ABG PCO2 36.2 MM HG (35-48); ABG PH 7.358 (7.35-7.45); ABG TCO2 17.9 MMOL/L (23-27); Allen Test Positive; Pt O2 Delivery Device Ventilator
[2019-10-27 04:40] LABS: Calcium 8.8 MG/DL (8.5-10.1); Osmolality,Calculated 282.3 MOS/KG (273-304)
[2019-10-27 04:55] LABS: Basophils % 0.2 % (0.0-0.8); Eosinophils % 0.1 % (0.00-10.9); Hematocrit 39.4 VOL% (35.7-47.0); Hemoglobin 12.2 GM/DL (12.0-16.0); Immature Granulocytes % 0.7 %; Immature Granulocytes Absolute 0.06 #; Lymphocytes # 1.3 10*3/uL (1.4-4.0); Lymphocytes % 14.4 % (21.3-54.2); Mean Corpuscular Volume 99.7 FL (87-102); Mean Platelet Volume 11.1 FL (9.6-12.0); Monocytes % 8.7 % (1.7-12.7); Neutrophils % 75.9 % (38.7-73.9); Platelet Count 195 T/CUMM (130-400); Red Blood Count 3.95 MC/CUMM (3.8-5.5); Red Cell Distribution Width 15.8 % (9.3-17.3)
[2019-10-27] MEDS: methylPREDNISolone SOD SUC 40 MG/1 ML VIAL IV SCH ×3 (05:51→20:35)
[2019-10-27] MEDS: LEVOTHYROXINE 50 MCG TABLET PO SCH (05:52)
[2019-10-27] MEDS: DOCUSATE SODIUM 100 MG CAPSULE PO SCH ×2 (10:43→20:24)
[2019-10-27] MEDS: PANTOPRAZOLE 40 MG TABLET PO SCH (10:44)
[2019-10-28] MEDS: SODIUM CHLORIDE 0.9% 1,000 ML IV SCH ×4 (00:19→23:48)
[2019-10-28] MEDS: INSULIN REGULAR 100 UNIT/ML SUBCUT SCH ×4 (00:20→17:30)
[2019-10-28] MEDS: ALBUTEROL/IPRATROPIUM 3 ML NEB RESP TX SCH ×4 (00:49→19:26)
[2019-10-28] MEDS: hydrALAZINE 20 MG/1 ML VIAL IV PRN ×2 (03:09→09:26)
[2019-10-28 04:28] LABS: ABG Base Excess -0.1 MMOL/L (-2.5-2.5); ABG HCO3 24.3 MMOL/L (20-26); ABG PCO2 30.2 MM HG (35-48); ABG PH 7.479 (7.35-7.45); ABG TCO2 19.8 MMOL/L (23-27); Allen Test Positive; Pt O2 Delivery Device Ventilator
[2019-10-28 07:27] LABS: Calcium 8.8 MG/DL (8.5-10.1); Osmolality,Calculated 287.8 MOS/KG (273-304)
[2019-10-28 07:34] LABS: Basophils % 0.2 % (0.0-0.8); Eosinophils # 0.1 10*3/uL (0.0-0.87); Eosinophils % 0.7 % (0.00-10.9); Hematocrit 41.2 VOL% (35.7-47.0); Hemoglobin 12.5 GM/DL (12.0-16.0); Immature Granulocytes % 0.7 %; Immature Granulocytes Absolute 0.07 #; Lymphocytes # 2.3 10*3/uL (1.4-4.0); Lymphocytes % 23.9 % (21.3-54.2); Mean Corpuscular HGB Conc 30.3 GM/DL (32-36); Mean Platelet Volume 10.9 FL (9.6-12.0); Monocytes % 6.7 % (1.7-12.7); Neutrophils % 67.8 % (38.7-73.9); Platelet Count 157 T/CUMM (130-400); Red Blood Count 4.16 MC/CUMM (3.8-5.5); Red Cell Distribution Width 15.8 % (9.3-17.3); White Blood Count 9.4 T/CUMM (4-12)
[2019-10-28] MEDS: methylPREDNISolone SOD SUC 40 MG/1 ML VIAL IV SCH ×3 (07:40→23:49)
[2019-10-28] MEDS: LEVOTHYROXINE 50 MCG TABLET PO SCH (07:41)
[2019-10-28] MEDS: PANTOPRAZOLE 40 MG TABLET PO SCH (09:29)
[2019-10-28] MEDS: DOCUSATE SODIUM 100 MG CAPSULE PO SCH ×2 (09:29→21:27)
[2019-10-29] MEDS: INSULIN REGULAR 100 UNIT/ML SUBCUT SCH ×4 (00:30→17:19)
[2019-10-29] MEDS: ALBUTEROL/IPRATROPIUM 3 ML NEB RESP TX SCH ×4 (01:12→19:43)
[2019-10-29] MEDS: hydrALAZINE 20 MG/1 ML VIAL IV PRN (03:15)
[2019-10-29 04:34] LABS: ABG Base Excess 1.4 MMOL/L (-2.5-2.5); ABG HCO3 25.7 MMOL/L (20-26); ABG PCO2 33.6 MM HG (35-48); ABG PH 7.471 (7.35-7.45); ABG PO2 97.3 MM HG (80-95); ABG TCO2 21.2 MMOL/L (23-27); Allen Test Positive; Pt O2 Delivery Device Ventilator
[2019-10-29] MEDS: LEVOTHYROXINE 50 MCG TABLET PO SCH (05:33)
[2019-10-29 06:08] LABS: Prealbumin 25.8 MG/DL (20-40)
[2019-10-29] MEDS: methylPREDNISolone SOD SUC 40 MG/1 ML VIAL IV SCH ×3 (06:09→22:56)
[2019-10-29 06:20] LABS: Calcium 8.7 MG/DL (8.5-10.1); Osmolality,Calculated 278.7 MOS/KG (273-304)
[2019-10-29] MEDS: PANTOPRAZOLE 40 MG VIAL IV SCH (08:48)
[2019-10-29] MEDS: DOCUSATE SODIUM 100 MG CAPSULE PO SCH ×2 (08:48→22:03)
[2019-10-29] MEDS: SODIUM CHLORIDE 0.9% 1,000 ML IV SCH ×3 (10:11→22:58)
[2019-10-30] MEDS: INSULIN REGULAR 100 UNIT/ML SUBCUT SCH ×4 (00:31→18:26)
[2019-10-30] MEDS: ALBUTEROL/IPRATROPIUM 3 ML NEB RESP TX SCH ×4 (00:37→20:24)
[2019-10-30 03:17] LABS: ABG Base Excess 1.4 MMOL/L (-2.5-2.5); ABG HCO3 25.7 MMOL/L (20-26); ABG PCO2 41.5 MM HG (35-48); ABG PH 7.409 (7.35-7.45); Pt O2 Delivery Device Ventilator
[2019-10-30] MEDS: SODIUM CHLORIDE 0.9% 1,000 ML IV SCH ×3 (04:31→18:04)
[2019-10-30 05:29] LABS: Calcium 8.6 MG/DL (8.5-10.1); Osmolality,Calculated 278.8 MOS/KG (273-304)
[2019-10-30] MEDS: LEVOTHYROXINE 50 MCG TABLET PO SCH (06:01)
[2019-10-30] MEDS: methylPREDNISolone SOD SUC 40 MG/1 ML VIAL IV SCH ×3 (06:01→22:55)
[2019-10-30] MEDS: DOCUSATE SODIUM 100 MG CAPSULE PO SCH ×2 (08:08→20:45)
[2019-10-30] MEDS: hydrALAZINE 20 MG/1 ML VIAL IV PRN (09:49)
[2019-10-30] MEDS: PANTOPRAZOLE 40 MG VIAL IV SCH (09:51)
[2019-10-30] MEDS: hydrALAZINE 25 MG TABLET PO SCH (22:55)
[2019-10-31] MEDS: INSULIN REGULAR 100 UNIT/ML SUBCUT SCH ×4 (01:00→17:50)
[2019-10-31] MEDS: ALBUTEROL/IPRATROPIUM 3 ML NEB RESP TX SCH ×4 (02:54→20:00)
[2019-10-31] MEDS: LEVOTHYROXINE 50 MCG TABLET PO SCH (05:54)
[2019-10-31 05:57] LABS: Basophils % 0.3 % (0.0-0.8); Eosinophils # 0.1 10*3/uL (0.0-0.87); Eosinophils % 0.7 % (0.00-10.9); Hemoglobin 12.7 GM/DL (12.0-16.0); Immature Granulocytes % 1.9 %; Immature Granulocytes Absolute 0.17 #; Lymphocytes # 1.7 10*3/uL (1.4-4.0); Lymphocytes % 19.1 % (21.3-54.2); Mean Corpuscular HGB Conc 30.2 GM/DL (32-36); Mean Corpuscular Volume 99.8 FL (87-102); Mean Platelet Volume 10.9 FL (9.6-12.0); Monocytes % 6.3 % (1.7-12.7); Neutrophils % 71.7 % (38.7-73.9); Platelet Count 191 T/CUMM (130-400); Red Blood Count 4.21 MC/CUMM (3.8-5.5); Red Cell Distribution Width 15.5 % (9.3-17.3); White Blood Count 8.8 T/CUMM (4-12)
[2019-10-31] MEDS: methylPREDNISolone SOD SUC 40 MG/1 ML VIAL IV SCH ×3 (06:00→23:49)
[2019-10-31] MEDS: SODIUM CHLORIDE 0.9% 1,000 ML IV SCH ×2 (06:08→16:47)
[2019-10-31 06:20] LABS: Calcium 8.5 MG/DL (8.5-10.1); Osmolality,Calculated 285.3 MOS/KG (273-304)
[2019-10-31] MEDS ORDERED: DOCUSATE SODIUM 100 MG CAPSULE PO SCH (09:00)
[2019-10-31] MEDS: POTASSIUM CHLORIDE 20 MEQ TABLET PO SCH ×2 (09:06→20:49)
[2019-10-31] MEDS: FERROUS SULFATE 325 MG TABLET PO SCH (09:06)
[2019-10-31] MEDS: DOCUSATE SODIUM 100 MG CAPSULE PO SCH ×2 (09:07→20:49)
[2019-10-31] MEDS: LOSARTAN 25 MG TABLET PO SCH ×2 (09:07→20:49)
[2019-10-31] MEDS: PANTOPRAZOLE 40 MG VIAL IV SCH (09:07)
[2019-10-31] MEDS: hydrALAZINE 25 MG TABLET PO SCH ×2 (09:07→20:50)
[2019-10-31] MEDS ORDERED: TUBERCULIN SKIN TEST 0.1 ML SYRINGE INTRADERM ONE (10:46)
[2019-10-31] MEDS: ATORVASTATIN 20 MG TABLET PO SCH (20:49)
[2019-11-01] MEDS: ALBUTEROL/IPRATROPIUM 3 ML NEB RESP TX SCH ×4 (00:37→19:28)
[2019-11-01] MEDS: INSULIN REGULAR 100 UNIT/ML SUBCUT SCH ×4 (00:38→19:10)
[2019-11-01] MEDS: SODIUM CHLORIDE 0.9% 1,000 ML IV SCH ×3 (03:30→22:51)
[2019-11-01] MEDS: LEVOTHYROXINE 50 MCG TABLET PO SCH (06:09)
[2019-11-01] MEDS: methylPREDNISolone SOD SUC 40 MG/1 ML VIAL IV SCH ×3 (06:09→22:55)
[2019-11-01 06:10] LABS: Calcium 8.6 MG/DL (8.5-10.1); Osmolality,Calculated 282.4 MOS/KG (273-304)
[2019-11-01 06:14] LABS: Prealbumin 24.5 MG/DL (20-40)
[2019-11-01] MEDS: FERROUS SULFATE 325 MG TABLET PO SCH (08:29)
[2019-11-01] MEDS: PANTOPRAZOLE 40 MG VIAL IV SCH (08:29)
[2019-11-01] MEDS: DOCUSATE SODIUM 100 MG CAPSULE PO SCH ×2 (08:29→20:56)
[2019-11-01] MEDS: POTASSIUM CHLORIDE 20 MEQ TABLET PO SCH ×2 (08:29→20:56)
[2019-11-01] MEDS: hydrALAZINE 25 MG TABLET PO SCH ×2 (08:30→20:56)
[2019-11-01] MEDS: LOSARTAN 25 MG TABLET PO SCH ×2 (08:30→20:56)
[2019-11-01] MEDS: cloNIDine 0.1 MG/24 HR PATCH TRANSDERM SCH (08:30)
[2019-11-01] MEDS ORDERED: SODIUM PHOSPHATE ENEMA 133 ML BOTTLE RECTAL PRN (14:43)
[2019-11-01] MEDS: LACTULOSE 20 GM/30 ML UDCUP PO SCH (15:31)
[2019-11-01 18:47] LABS: Hepatitis B Core IgM Quant < 0.05 Index; Hepatitis B Surface Ag Quant < 0.10 Index; Hepatitis B Surface Ag Result Negative (Negative); Hepatitis C Virus Ab Quant 0.18 Index; Hepatitis C Virus Ab Result Negative (Negative)
[2019-11-01] MEDS: ATORVASTATIN 20 MG TABLET PO SCH (20:56)
[2019-11-01] MEDS ORDERED: hydrALAZINE 25 MG TABLET PO SCH (22:12)
[2019-11-02] MEDS: ALBUTEROL/IPRATROPIUM 3 ML NEB RESP TX SCH ×3 (00:15→12:01)
[2019-11-02] MEDS: INSULIN REGULAR 100 UNIT/ML SUBCUT SCH ×3 (02:48→12:17)
[2019-11-02] MEDS: SODIUM CHLORIDE 0.9% 1,000 ML IV SCH ×2 (03:12→15:11)
[2019-11-02 06:30] LABS: Calcium 8.5 MG/DL (8.5-10.1); Osmolality,Calculated 281.3 MOS/KG (273-304)
[2019-11-02] MEDS: LEVOTHYROXINE 50 MCG TABLET PO SCH (06:35)
[2019-11-02] MEDS: methylPREDNISolone SOD SUC 40 MG/1 ML VIAL IV SCH ×2 (07:04→15:30)
[2019-11-02] MEDS ORDERED: PANTOPRAZOLE 40 MG TABLET PO SCH (09:00)
[2019-11-02] MEDS: LACTULOSE 20 GM/30 ML UDCUP PO SCH (09:17)
[2019-11-02] MEDS: POTASSIUM CHLORIDE 20 MEQ TABLET PO SCH (09:18)
[2019-11-02] MEDS: DOCUSATE SODIUM 100 MG CAPSULE PO SCH (09:18)
[2019-11-02] MEDS: LOSARTAN 25 MG TABLET PO SCH (09:18)
[2019-11-02] MEDS: FERROUS SULFATE 325 MG TABLET PO SCH (09:19)
[2019-11-02 11:51] VITALS: BP 159/91
== END 2019-11-02 15:29 | DRG 100 ==
LOC: N.ED 09:43 → N.EDINP 11:40 → N.CC 12:26 → N.5E 10-31 00:27
PROVIDERS: ADMIT Internal Medicine; ATTEND Internal Medicine

== ENCOUNTER 2020-07-24 15:53 | Inpatient (IN) ==
[2020-07-24 17:07] LABS: ABG Base Excess 12.8 MMOL/L (-2.5-2.5); ABG HCO3 36.6 MMOL/L (20-26); ABG Oxygen Saturation 99.5 % (95-100); ABG PH 7.293 (7.35-7.45); ABG TCO2 39.5 MMOL/L (23-27)
[2020-07-24 17:09] LABS: ABG PCO2 89.2 MM HG (35-48)
[2020-07-24 17:48] LABS: Basophils % 0.2 % (0.0-0.8); Eosinophils # 0.1 10*3/uL (0.0-0.87); Eosinophils % 0.8 % (0.00-10.9); Hematocrit 38.7 VOL% (35.7-47.0); Hemoglobin 10.9 GM/DL (12.0-16.0); Immature Granulocytes % 0.7 %; Immature Granulocytes Absolute 0.06 #; Lymphocytes # 2.2 10*3/uL (1.4-4.0); Lymphocytes % 25.4 % (21.3-54.2); Mean Corpuscular HGB Conc 28.2 GM/DL (32-36); Mean Corpuscular Volume 94.6 FL (87-102); Mean Platelet Volume 10.4 FL (9.6-12.0); Monocytes % 11.7 % (1.7-12.7); Neutrophils % 61.2 % (38.7-73.9); Platelet Count 305 T/CUMM (130-400); Red Blood Count 4.09 MC/CUMM (3.8-5.5); Red Cell Distribution Width 20.9 % (9.3-17.3); White Blood Count 8.8 T/CUMM (4-12)
[2020-07-24 18:10] LABS: Albumin 3.1 G/DL (3.4-5.0); Bilirubin,Total 0.4 MG/DL (0.2-1.0); Calcium 9.5 MG/DL (8.5-10.1); Osmolality,Calculated 290.6 MOS/KG (273-304); Total Protein 6.9 G/DL (6.4-8.3)
[2020-07-24 18:22] LABS: Anisocytosis Slight; Hypochromasia 1+
[2020-07-24 18:23] LABS: Elliptocytes Few; Platelet Estimate Adequate
[2020-07-24 20:17] LABS: ABG Base Excess 13.2 MMOL/L (-2.5-2.5); ABG HCO3 36.9 MMOL/L (20-26); ABG Oxygen Saturation 94.9 % (95-100); ABG PH 7.304 (7.35-7.45); ABG PO2 82.2 MM HG (80-95); ABG TCO2 39.7 MMOL/L (23-27)
[2020-07-24 20:21] LABS: ABG PCO2 87.2 MM HG (35-48)
[2020-07-24] MEDS ORDERED: ROCURONIUM 100 MG/10 ML VIAL IV STA (21:00)
[2020-07-24] MEDS ORDERED: ETOMIDATE 20 MG/10 ML VIAL IV STA (21:00)
[2020-07-24] MEDS ORDERED: ALBUTEROL/IPRATROPIUM 3 ML NEB RESP TX PRN (21:11)
[2020-07-24] MEDS ORDERED: ETOMIDATE 20 MG/10 ML VIAL IV ONE (21:23)
[2020-07-24] MEDS ORDERED: ROCURONIUM 100 MG/10 ML VIAL IV ONE (21:24)
[2020-07-24] MEDS ORDERED: LEVOFLOXACIN INJ 750 MG in PREMIX 1 EACH IV SCH (22:00)
[2020-07-24] MEDS ORDERED: DEXTROSE 50% 25 GM/50 ML VIAL IV PRN (22:36)
[2020-07-24] MEDS ORDERED: GLUCAGON 1 MG VIAL IM PRN (22:36)
[2020-07-24 22:37] LABS: ABG Base Excess 14.9 MMOL/L (-2.5-2.5); ABG HCO3 38.8 MMOL/L (20-26); ABG Oxygen Saturation 97.6 % (95-100); ABG PH 7.456 (7.35-7.45); ABG PO2 87.8 MM HG (80-95); ABG TCO2 37.4 MMOL/L (23-27)
[2020-07-24] MEDS: INSULIN REGULAR 100 UNIT/ML SUBCUT SCH (23:38)
[2020-07-24] MEDS: LACTATED RINGERS 1,000 ML IV SCH (23:59)
[2020-07-25] MEDS: PIPERACILLIN/TAZOBACTAM 3,375 MG in SODIUM CHLORIDE 0.9% 100 ML IV SCH ×4 (00:54→23:15)
[2020-07-25] MEDS: ALBUTEROL/IPRATROPIUM 3 ML NEB RESP TX SCH ×4 (01:15→16:44)
[2020-07-25 04:15] LABS: Albumin 2.7 G/DL (3.4-5.0); Bilirubin,Total 1.1 MG/DL (0.2-1.0); Calcium 9.3 MG/DL (8.5-10.1); Osmolality,Calculated 288.6 MOS/KG (273-304); Risk Ratio 2.75; Total Protein 5.8 G/DL (6.4-8.3); VLDL CHOLESTEROL 32.2 MG/DL
[2020-07-25 04:20] LABS: Basophils % 0.2 % (0.0-0.8); Eosinophils # 0.1 10*3/uL (0.0-0.87); Eosinophils % 1.3 % (0.00-10.9); Hematocrit 34.9 VOL% (35.7-47.0); Immature Granulocytes % 0.5 %; Immature Granulocytes Absolute 0.05 #; Lymphocytes # 2.5 10*3/uL (1.4-4.0); Lymphocytes % 26.2 % (21.3-54.2); Mean Corpuscular HGB Conc 28.7 GM/DL (32-36); Mean Corpuscular Volume 94.3 FL (87-102); Mean Platelet Volume 10.4 FL (9.6-12.0); Monocytes % 11.6 % (1.7-12.7); Neutrophils % 60.2 % (38.7-73.9); Platelet Count 291 T/CUMM (130-400); Red Cell Distribution Width 20.6 % (9.3-17.3); White Blood Count 9.5 T/CUMM (4-12)
[2020-07-25 04:32] LABS: ABG Base Excess 14.2 MMOL/L (-2.5-2.5); ABG Oxygen Saturation 95.1 % (95-100); ABG PO2 72.1 MM HG (80-95); ABG TCO2 36.7 MMOL/L (23-27); Allen Test Positive; Pt O2 Delivery Device Ventilator
[2020-07-25] MEDS: VANCOMYCIN INJ 1,500 MG in SODIUM CHLORIDE 0.9% 500 ML IV SCH ×2 (04:33→18:00)
[2020-07-25] MEDS: INSULIN REGULAR 100 UNIT/ML SUBCUT SCH ×3 (06:40→18:30)
[2020-07-25] MEDS: POTASSIUM CHLORIDE RIDER 10 MEQ in PREMIX 1 EACH IV PRN ×5 (08:00→14:30)
[2020-07-25] MEDS: ENOXAPARIN 40 MG/0.4 ML SYRINGE SUBCUT SCH (11:00)
[2020-07-25] MEDS: PANTOPRAZOLE 40 MG VIAL IV SCH (11:00)
[2020-07-25] MEDS: LACTATED RINGERS 1,000 ML IV SCH ×2 (11:30→22:52)
[2020-07-25] MEDS: POTASSIUM CHLORIDE 20 MEQ/15 ML UDCUP PER TUBE SCH ×2 (17:00→20:48)
[2020-07-26] MEDS: POTASSIUM CHLORIDE 20 MEQ/15 ML UDCUP PER TUBE SCH ×2 (00:34→03:46)
[2020-07-26] MEDS: LACTATED RINGERS 1,000 ML IV SCH ×3 (00:48→21:45)
[2020-07-26] MEDS: ALBUTEROL/IPRATROPIUM 3 ML NEB RESP TX SCH ×4 (01:07→20:38)
[2020-07-26 03:42] LABS: ABG Base Excess 7.9 MMOL/L (-2.5-2.5); ABG HCO3 31.6 MMOL/L (20-26); ABG Oxygen Saturation 98.5 % (95-100); ABG PCO2 40.5 MM HG (35-48); ABG PO2 121.8 MM HG (80-95); ABG TCO2 32.8 MMOL/L (23-27)
[2020-07-26] MEDS: VANCOMYCIN INJ 1,500 MG in SODIUM CHLORIDE 0.9% 500 ML IV SCH ×2 (03:46→17:00)
[2020-07-26 05:15] LABS: Basophils % 0.5 % (0.0-0.8); Neutrophils % 59.7 % (38.7-73.9)
[2020-07-26 05:17] LABS: Albumin 2.3 G/DL (3.4-5.0); Bilirubin,Total 0.8 MG/DL (0.2-1.0); Calcium 8.6 MG/DL (8.5-10.1); Osmolality,Calculated 288.7 MOS/KG (273-304); Total Protein 5.6 G/DL (6.4-8.3)
[2020-07-26 05:34] LABS: Eosinophils # 0.1 10*3/uL (0.0-0.87); Eosinophils % 1.3 % (0.00-10.9); Hematocrit 34.2 VOL% (35.7-47.0); Hemoglobin 9.9 GM/DL (12.0-16.0); Immature Granulocytes % 0.6 %; Immature Granulocytes Absolute 0.05 #; Lymphocytes # 2.3 10*3/uL (1.4-4.0); Lymphocytes % 28.1 % (21.3-54.2); Mean Corpuscular HGB Conc 28.9 GM/DL (32-36); Monocytes % 9.8 % (1.7-12.7); Platelet Count 289 T/CUMM (130-400); Red Blood Count 3.64 MC/CUMM (3.8-5.5); Red Cell Distribution Width 20.5 % (9.3-17.3); White Blood Count 8.3 T/CUMM (4-12)
[2020-07-26 06:20] LABS: Hypochromasia 1+
[2020-07-26 06:21] LABS: Anisocytosis 1+; Microcytosis 1+; Ovalocytes Slight; Platelet Estimate Normal
[2020-07-26] MEDS: INSULIN REGULAR 100 UNIT/ML SUBCUT SCH ×4 (06:35→17:42)
[2020-07-26] MEDS: PIPERACILLIN/TAZOBACTAM 3,375 MG in SODIUM CHLORIDE 0.9% 100 ML IV SCH ×2 (06:36→15:00)
[2020-07-26] MEDS: PANTOPRAZOLE 40 MG VIAL IV SCH (08:36)
[2020-07-26] MEDS: ENOXAPARIN 40 MG/0.4 ML SYRINGE SUBCUT SCH (08:37)
[2020-07-26] MEDS: MELATONIN 3 MG TABLET PO PRN (20:47)
[2020-07-27] MEDS: PIPERACILLIN/TAZOBACTAM 3,375 MG in SODIUM CHLORIDE 0.9% 100 ML IV SCH ×3 (00:30→17:00)
[2020-07-27] MEDS: INSULIN REGULAR 100 UNIT/ML SUBCUT SCH ×4 (00:31→19:57)
[2020-07-27] MEDS: ALBUTEROL/IPRATROPIUM 3 ML NEB RESP TX SCH ×4 (01:35→20:38)
[2020-07-27 05:05] LABS: Albumin 2.4 G/DL (3.4-5.0); Bilirubin,Total 0.5 MG/DL (0.2-1.0); Calcium 8.6 MG/DL (8.5-10.1); Osmolality,Calculated 287.8 MOS/KG (273-304)
[2020-07-27] MEDS: VANCOMYCIN INJ 1,500 MG in SODIUM CHLORIDE 0.9% 500 ML IV SCH (05:05)
[2020-07-27 05:47] LABS: Basophils % 0.5 % (0.0-0.8); Eosinophils # 0.2 10*3/uL (0.0-0.87); Eosinophils % 2.4 % (0.00-10.9); Hematocrit 34.9 VOL% (35.7-47.0); Hemoglobin 9.9 GM/DL (12.0-16.0); Immature Granulocytes Absolute 0.08 #; Lymphocytes # 2.2 10*3/uL (1.4-4.0); Lymphocytes % 28.1 % (21.3-54.2); Mean Corpuscular HGB Conc 28.4 GM/DL (32-36); Mean Corpuscular Volume 94.3 FL (87-102); Mean Platelet Volume 10.8 FL (9.6-12.0); Monocytes % 11.9 % (1.7-12.7); Neutrophils % 56.1 % (38.7-73.9); Platelet Count 284 T/CUMM (130-400); Red Cell Distribution Width 20.1 % (9.3-17.3); White Blood Count 7.8 T/CUMM (4-12)
[2020-07-27 05:53] LABS: Hypochromasia 1+
[2020-07-27 05:54] LABS: Microcytosis 1+; Ovalocytes Few; Platelet Estimate Normal
[2020-07-27] MEDS: LACTATED RINGERS 1,000 ML IV SCH (08:07)
[2020-07-27] MEDS: PANTOPRAZOLE 40 MG TABLET PO SCH (09:08)
[2020-07-27] MEDS: amLODIPine 5 MG TABLET PO SCH (09:09)
[2020-07-27] MEDS: ENOXAPARIN 40 MG/0.4 ML SYRINGE SUBCUT SCH (09:09)
[2020-07-27] MEDS: QUEtiapine 25 MG TABLET PO SCH ×2 (09:09→20:58)
[2020-07-27] MEDS: FUROSEMIDE 40 MG/4 ML VIAL IV SCH ×2 (09:09→17:00)
[2020-07-27] MEDS: POTASSIUM CHLORIDE RIDER 10 MEQ in PREMIX 1 EACH IV PRN (09:14)
[2020-07-28] MEDS: PIPERACILLIN/TAZOBACTAM 3,375 MG in SODIUM CHLORIDE 0.9% 100 ML IV SCH ×4 (00:22→22:46)
[2020-07-28] MEDS: INSULIN REGULAR 100 UNIT/ML SUBCUT SCH ×4 (00:42→18:18)
[2020-07-28 05:49] LABS: Basophils # 0.1 10*3/uL (0.0-0.2); Basophils % 0.7 % (0.0-0.8); Eosinophils # 0.2 10*3/uL (0.0-0.87); Eosinophils % 2.5 % (0.00-10.9); Hematocrit 31.7 VOL% (35.7-47.0); Hemoglobin 9.3 GM/DL (12.0-16.0); Immature Granulocytes % 0.9 %; Immature Granulocytes Absolute 0.07 #; Lymphocytes # 2.1 10*3/uL (1.4-4.0); Lymphocytes % 26.8 % (21.3-54.2); Mean Corpuscular HGB Conc 29.3 GM/DL (32-36); Mean Corpuscular Volume 92.2 FL (87-102); Mean Platelet Volume 10.6 FL (9.6-12.0); Monocytes % 10.2 % (1.7-12.7); Neutrophils % 58.9 % (38.7-73.9); Platelet Count 244 T/CUMM (130-400); Red Blood Count 3.44 MC/CUMM (3.8-5.5); White Blood Count 7.7 T/CUMM (4-12)
[2020-07-28] MEDS: LEVOTHYROXINE 50 MCG TABLET PO SCH (05:54)
[2020-07-28 06:09] LABS: Albumin 2.2 G/DL (3.4-5.0); Bilirubin,Total 0.6 MG/DL (0.2-1.0); Calcium 8.8 MG/DL (8.5-10.1); Osmolality,Calculated 289.6 MOS/KG (273-304); Total Protein 5.7 G/DL (6.4-8.3)
[2020-07-28] MEDS: ALBUTEROL/IPRATROPIUM 3 ML NEB RESP TX SCH ×4 (07:02→19:42)
[2020-07-28] MEDS: QUEtiapine 25 MG TABLET PO SCH ×2 (09:43→20:14)
[2020-07-28] MEDS: FUROSEMIDE 40 MG/4 ML VIAL IV SCH ×2 (09:43→16:59)
[2020-07-28] MEDS: ENOXAPARIN 40 MG/0.4 ML SYRINGE SUBCUT SCH (09:43)
[2020-07-28] MEDS: amLODIPine 5 MG TABLET PO SCH (09:44)
[2020-07-28] MEDS: PANTOPRAZOLE 40 MG TABLET PO SCH (09:44)
[2020-07-28] MEDS ORDERED: POTASSIUM CHLORIDE 20 MEQ TABLET PO PRN (13:43)
[2020-07-28] MEDS ORDERED: POTASSIUM CHLORIDE 20 MEQ TABLET PO ONE (14:00)
[2020-07-28] MEDS: LACTULOSE 20 GM/30 ML UDCUP PO SCH ×2 (14:10→20:14)
[2020-07-28] MEDS: ALBUMIN 25% 25 GM in PREMIX 1 EACH IV SCH ×2 (14:10→21:36)
[2020-07-29] MEDS: ALBUTEROL/IPRATROPIUM 3 ML NEB RESP TX SCH ×4 (00:30→20:16)
[2020-07-29] MEDS: INSULIN REGULAR 100 UNIT/ML SUBCUT SCH ×4 (01:32→18:22)
[2020-07-29] MEDS: ALBUMIN 25% 25 GM in PREMIX 1 EACH IV SCH ×3 (05:30→21:13)
[2020-07-29] MEDS: LEVOTHYROXINE 50 MCG TABLET PO SCH (05:30)
[2020-07-29 06:50] LABS: Basophils # 0.1 10*3/uL (0.0-0.2); Basophils % 0.8 % (0.0-0.8); Eosinophils # 0.2 10*3/uL (0.0-0.87); Eosinophils % 2.7 % (0.00-10.9); Hematocrit 30.6 VOL% (35.7-47.0); Immature Granulocytes % 1.4 %; Immature Granulocytes Absolute 0.09 #; Lymphocytes % 29.9 % (21.3-54.2); Mean Corpuscular HGB Conc 29.4 GM/DL (32-36); Mean Corpuscular Volume 92.7 FL (87-102); Monocytes % 9.7 % (1.7-12.7); Neutrophils % 55.5 % (38.7-73.9); Platelet Count 183 T/CUMM (130-400); Red Cell Distribution Width 20.2 % (9.3-17.3); White Blood Count 6.6 T/CUMM (4-12)
[2020-07-29 07:13] LABS: Albumin 2.7 G/DL (3.4-5.0); Bilirubin,Total 1.1 MG/DL (0.2-1.0); Calcium 8.8 MG/DL (8.5-10.1); Osmolality,Calculated 284.8 MOS/KG (273-304); Total Protein 6.3 G/DL (6.4-8.3)
[2020-07-29 07:33] LABS: Microcytosis 1+
[2020-07-29 07:34] LABS: Hypochromasia 2+; Ovalocytes Slight; Platelet Estimate Adequate
[2020-07-29 07:35] LABS: Target Cells Slight
[2020-07-29] MEDS: PANTOPRAZOLE 40 MG TABLET PO SCH (09:21)
[2020-07-29] MEDS: QUEtiapine 25 MG TABLET PO SCH ×2 (09:21→21:08)
[2020-07-29] MEDS: amLODIPine 5 MG TABLET PO SCH (09:21)
[2020-07-29] MEDS: LACTULOSE 20 GM/30 ML UDCUP PO SCH ×3 (09:23→21:09)
[2020-07-29] MEDS: ENOXAPARIN 40 MG/0.4 ML SYRINGE SUBCUT SCH (09:28)
[2020-07-29] MEDS: PIPERACILLIN/TAZOBACTAM 3,375 MG in SODIUM CHLORIDE 0.9% 100 ML IV SCH ×2 (10:03→18:25)
[2020-07-29] MEDS: ONDANSETRON 4 MG/2 ML VIAL IV PRN (12:23)
[2020-07-30] MEDS: INSULIN REGULAR 100 UNIT/ML SUBCUT SCH ×4 (00:15→18:01)
[2020-07-30] MEDS: ALBUTEROL/IPRATROPIUM 3 ML NEB RESP TX SCH ×4 (00:32→19:19)
[2020-07-30] MEDS: PIPERACILLIN/TAZOBACTAM 3,375 MG in SODIUM CHLORIDE 0.9% 100 ML IV SCH ×3 (01:53→18:15)
[2020-07-30] MEDS: LEVOTHYROXINE 50 MCG TABLET PO SCH (05:31)
[2020-07-30] MEDS: ALBUMIN 25% 25 GM in PREMIX 1 EACH IV SCH ×3 (05:33→22:00)
[2020-07-30 06:12] LABS: Albumin 3.4 G/DL (3.4-5.0); Bilirubin,Total 0.7 MG/DL (0.2-1.0); Osmolality,Calculated 287.8 MOS/KG (273-304); Total Protein 6.6 G/DL (6.4-8.3)
[2020-07-30 06:16] LABS: Basophils # 0.1 10*3/uL (0.0-0.2); Basophils % 0.7 % (0.0-0.8); Eosinophils # 0.2 10*3/uL (0.0-0.87); Eosinophils % 2.3 % (0.00-10.9); Hematocrit 30.9 VOL% (35.7-47.0); Immature Granulocytes % 2.3 %; Immature Granulocytes Absolute 0.17 #; Lymphocytes # 2.5 10*3/uL (1.4-4.0); Lymphocytes % 33.1 % (21.3-54.2); Mean Corpuscular HGB Conc 29.1 GM/DL (32-36); Mean Corpuscular Volume 92.2 FL (87-102); Monocytes % 12.5 % (1.7-12.7); NRBC # 0.03 10*3/uL; Neutrophils % 49.1 % (38.7-73.9); Platelet Count 312 T/CUMM (130-400); Red Blood Count 3.35 MC/CUMM (3.8-5.5); Red Cell Distribution Width 19.9 % (9.3-17.3); White Blood Count 7.6 T/CUMM (4-12)
[2020-07-30 06:29] LABS: Hypochromasia 1+; Microcytosis 1+; Ovalocytes Slight; Platelet Estimate Adequate
[2020-07-30] MEDS: LACTULOSE 20 GM/30 ML UDCUP PO SCH ×3 (08:55→20:31)
[2020-07-30] MEDS: QUEtiapine 25 MG TABLET PO SCH ×2 (08:56→20:31)
[2020-07-30] MEDS: amLODIPine 5 MG TABLET PO SCH (08:56)
[2020-07-30] MEDS: ENOXAPARIN 40 MG/0.4 ML SYRINGE SUBCUT SCH (08:56)
[2020-07-30] MEDS: PANTOPRAZOLE 40 MG TABLET PO SCH (10:54)
[2020-07-31] MEDS: INSULIN REGULAR 100 UNIT/ML SUBCUT SCH ×4 (00:15→18:07)
[2020-07-31] MEDS: ALBUTEROL/IPRATROPIUM 3 ML NEB RESP TX SCH ×4 (01:02→19:01)
[2020-07-31] MEDS: PIPERACILLIN/TAZOBACTAM 3,375 MG in SODIUM CHLORIDE 0.9% 100 ML IV SCH ×3 (01:46→17:43)
[2020-07-31 05:40] LABS: Calcium 9.1 MG/DL (8.5-10.1); Osmolality,Calculated 290.7 MOS/KG (273-304)
[2020-07-31] MEDS: LEVOTHYROXINE 50 MCG TABLET PO SCH (05:46)
[2020-07-31] MEDS: ALBUMIN 25% 25 GM in PREMIX 1 EACH IV SCH ×3 (05:52→22:48)
[2020-07-31 06:49] LABS: Basophils # 0.1 10*3/uL (0.0-0.2); Basophils % 0.9 % (0.0-0.8); Eosinophils # 0.1 10*3/uL (0.0-0.87); Eosinophils % 2.1 % (0.00-10.9); Hematocrit 30.8 VOL% (35.7-47.0); Hemoglobin 8.8 GM/DL (12.0-16.0); Immature Granulocytes % 3.7 %; Immature Granulocytes Absolute 0.25 #; Lymphocytes # 1.7 10*3/uL (1.4-4.0); Lymphocytes % 24.7 % (21.3-54.2); Mean Corpuscular HGB Conc 28.6 GM/DL (32-36); Mean Corpuscular Volume 95.1 FL (87-102); Mean Platelet Volume 10.9 FL (9.6-12.0); Monocytes % 14.3 % (1.7-12.7); NRBC # 0.06 10*3/uL; Neutrophils % 54.3 % (38.7-73.9); Platelet Count 299 T/CUMM (130-400); Red Blood Count 3.24 MC/CUMM (3.8-5.5); Red Cell Distribution Width 19.9 % (9.3-17.3); White Blood Count 6.7 T/CUMM (4-12)
[2020-07-31 06:55] LABS: Band Neutrophils 2 % (0-10); Eosinophils 2 % (0-10); Hypochromasia 2+; Lymphocytes 26 % (20-55); Microcytosis 1+; Platelet Estimate Adequate; Segmented Neutrophils 62 % (50-85); Total Cells Counted 100
[2020-07-31 06:56] LABS: Ovalocytes Slight
[2020-07-31] MEDS: QUEtiapine 25 MG TABLET PO SCH (09:22)
[2020-07-31] MEDS: LACTULOSE 20 GM/30 ML UDCUP PO SCH ×3 (09:22→23:10)
[2020-07-31] MEDS: ENOXAPARIN 40 MG/0.4 ML SYRINGE SUBCUT SCH (09:22)
[2020-07-31] MEDS: amLODIPine 5 MG TABLET PO SCH (09:22)
[2020-07-31] MEDS: PANTOPRAZOLE 40 MG TABLET PO SCH (09:22)
[2020-07-31] MEDS ORDERED: FUROSEMIDE 20 MG/2 ML VIAL IV ONE (11:13)
[2020-07-31] MEDS ORDERED: POTASSIUM CHLORIDE 20 MEQ TABLET PO ONE ×2 (11:14→18:00)
[2020-07-31 12:29] LABS: ABG Base Excess 4.5 MMOL/L (-2.5-2.5); ABG HCO3 28.2 MMOL/L (20-26); ABG Oxygen Saturation 78.3 % (95-100); ABG PH 7.266 (7.35-7.45); ABG PO2 51.7 MM HG (80-95); ABG TCO2 31.3 MMOL/L (23-27)
[2020-07-31 12:35] LABS: ABG PCO2 73.1 MM HG (35-48)
[2020-07-31 13:03] LABS: Calcium 8.8 MG/DL (8.5-10.1)
[2020-07-31 14:22] LABS: Bacteria,Urine Occasional /HPF (Few); Bilirubin,Urine Negative (Negative); Blood, Urine Negative (Negative); Glucose,Urine (UA) Negative (Negative); Hyaline Casts,Urine 43 /LPF (0-3); Ketones,Urine Negative (Negative); Mucus,Urine Occasional /LPF (Occasional); Nitrite,Urine Negative (Negative); Protein,Urine 30 MG/DL; RBC,Urine 2 /HPF (0-4); Squamous Epithelial Cell,Urine Occasional /HPF (0-10); Urine Appearance Slightly Hazy (Clear); Urine Color Yellow (Yellow); Urine Specific Gravity 1.021 (1.001-1.035); Urine Urobilinogen < 2.0 EU/DL (0.2-1.0)
[2020-07-31 15:26] LABS: ABG HCO3 28.8 MMOL/L (20-26); ABG Oxygen Saturation 93.2 % (95-100); ABG PO2 76.6 MM HG (80-95); ABG TCO2 31.7 MMOL/L (23-27)
[2020-07-31 15:31] LABS: ABG PCO2 73.2 MM HG (35-48)
[2020-07-31] MEDS ORDERED: POTASSIUM CHLORIDE 20 MEQ/15 ML UDCUP PO ONE (17:45)
[2020-07-31] MEDS: methylPREDNISolone SOD SUC 40 MG/1 ML VIAL IV SCH (17:57)
[2020-08-01] MEDS: ALBUTEROL/IPRATROPIUM 3 ML NEB RESP TX SCH ×4 (01:24→19:10)
[2020-08-01] MEDS: INSULIN REGULAR 100 UNIT/ML SUBCUT SCH ×4 (01:29→18:04)
[2020-08-01] MEDS: methylPREDNISolone SOD SUC 40 MG/1 ML VIAL IV SCH ×3 (01:31→18:15)
[2020-08-01] MEDS: PIPERACILLIN/TAZOBACTAM 3,375 MG in SODIUM CHLORIDE 0.9% 100 ML IV SCH ×2 (01:36→09:03)
[2020-08-01 03:56] LABS: Allen Test Positive; Pt O2 Delivery Device BIPAP
[2020-08-01 04:00] LABS: ABG Base Excess 5.4 MMOL/L (-2.5-2.5); ABG HCO3 29.1 MMOL/L (20-26); ABG Oxygen Saturation 83.7 % (95-100); ABG PCO2 56.2 MM HG (35-48); ABG PH 7.363 (7.35-7.45); ABG PO2 55.2 MM HG (80-95); ABG TCO2 29.7 MMOL/L (23-27)
[2020-08-01 05:38] LABS: Calcium 9.4 MG/DL (8.5-10.1); Osmolality,Calculated 292.8 MOS/KG (273-304)
[2020-08-01 06:02] LABS: Basophils % 0.4 % (0.0-0.8); Eosinophils % 0.1 % (0.00-10.9); Hematocrit 32.4 VOL% (35.7-47.0); Immature Granulocytes % 3.6 %; Immature Granulocytes Absolute 0.24 #; Lymphocytes # 0.7 10*3/uL (1.4-4.0); Lymphocytes % 9.6 % (21.3-54.2); Mean Corpuscular HGB Conc 28.4 GM/DL (32-36); Mean Corpuscular Volume 94.7 FL (87-102); Mean Platelet Volume 11.2 FL (9.6-12.0); Monocytes % 1.6 % (1.7-12.7); NRBC # 0.07 10*3/uL; Neutrophils % 84.7 % (38.7-73.9); Platelet Count 362 T/CUMM (130-400); Red Blood Count 3.42 MC/CUMM (3.8-5.5); Red Cell Distribution Width 19.9 % (9.3-17.3); White Blood Count 6.8 T/CUMM (4-12)
[2020-08-01 06:03] LABS: Hemoglobin 9.2 GM/DL (12.0-16.0)
[2020-08-01] MEDS: LEVOTHYROXINE 50 MCG TABLET PO SCH (06:22)
[2020-08-01 06:41] LABS: Hypochromasia 1+; Microcytosis 1+; Ovalocytes Slight
[2020-08-01 06:42] LABS: Platelet Estimate Normal
[2020-08-01] MEDS: ALBUMIN 25% 25 GM in PREMIX 1 EACH IV SCH ×3 (06:52→21:50)
[2020-08-01] MEDS: ONDANSETRON 4 MG/2 ML VIAL IV PRN (07:27)
[2020-08-01] MEDS: ENOXAPARIN 40 MG/0.4 ML SYRINGE SUBCUT SCH (09:03)
[2020-08-01] MEDS: PANTOPRAZOLE 40 MG TABLET PO SCH (09:43)
[2020-08-01] MEDS: LACTULOSE 20 GM/30 ML UDCUP PO SCH ×3 (09:43→20:36)
[2020-08-01] MEDS: amLODIPine 5 MG TABLET PO SCH (09:43)
[2020-08-01] MEDS: ACETAMINOPHEN 325 MG/10.15 ML UDCUP PO PRN (14:03)
[2020-08-01] MEDS ORDERED: FUROSEMIDE 40 MG/4 ML VIAL IV ONE (14:50)
[2020-08-01] MEDS ORDERED: FUROSEMIDE 40 MG/4 ML VIAL ONE (14:56)
[2020-08-01 15:13] LABS: Bacteria,Urine Occasional /HPF (Few); Bilirubin,Urine Negative (Negative); Blood, Urine Small mg/dL (Negative); Glucose,Urine (UA) Negative (Negative); Hyaline Casts,Urine 18 /LPF (0-3); Ketones,Urine Negative (Negative); Mucus,Urine Occasional /LPF (Occasional); Nitrite,Urine Negative (Negative); Protein,Urine 30 MG/DL; RBC,Urine 53 /HPF (0-4); Squamous Epithelial Cell,Urine Occasional /HPF (0-10); Urine Appearance Slightly Hazy (Clear); Urine Color Yellow (Yellow); Urine Specific Gravity 1.021 (1.001-1.035); Urine Urobilinogen < 2.0 EU/DL (0.2-1.0); WBC,Urine 11 /HPF (0-6)
[2020-08-02] MEDS: INSULIN REGULAR 100 UNIT/ML SUBCUT SCH ×5 (01:03→23:52)
[2020-08-02] MEDS: ALBUTEROL/IPRATROPIUM 3 ML NEB RESP TX SCH ×4 (01:58→19:07)
[2020-08-02] MEDS: methylPREDNISolone SOD SUC 40 MG/1 ML VIAL IV SCH ×3 (02:45→18:18)
[2020-08-02 04:13] LABS: Basophils % 0.1 % (0.0-0.8); Hematocrit 30.7 VOL% (35.7-47.0); Hemoglobin 8.5 GM/DL (12.0-16.0); Immature Granulocytes % 2.3 %; Lymphocytes # 0.8 10*3/uL (1.4-4.0); Lymphocytes % 8.7 % (21.3-54.2); Mean Corpuscular HGB Conc 27.7 GM/DL (32-36); Mean Corpuscular Volume 96.8 FL (87-102); Mean Platelet Volume 10.6 FL (9.6-12.0); Monocytes % 8.4 % (1.7-12.7); NRBC # 0.22 10*3/uL; Neutrophils % 80.5 % (38.7-73.9); Platelet Count 434 T/CUMM (130-400); Red Blood Count 3.17 MC/CUMM (3.8-5.5); Red Cell Distribution Width 20.2 % (9.3-17.3); White Blood Count 8.8 T/CUMM (4-12)
[2020-08-02 04:21] LABS: Calcium 9.1 MG/DL (8.5-10.1); Osmolality,Calculated 292.1 MOS/KG (273-304)
[2020-08-02] MEDS: ALBUMIN 25% 25 GM in PREMIX 1 EACH IV SCH ×3 (05:55→21:10)
[2020-08-02] MEDS: LEVOTHYROXINE 50 MCG TABLET PO SCH (05:55)
[2020-08-02] MEDS ORDERED: POTASSIUM CHLORIDE 20 MEQ/15 ML UDCUP PER TUBE PRN (07:28)
[2020-08-02] MEDS: PANTOPRAZOLE 40 MG TABLET PO SCH (09:23)
[2020-08-02] MEDS: ENOXAPARIN 40 MG/0.4 ML SYRINGE SUBCUT SCH (09:23)
[2020-08-02] MEDS: LACTULOSE 20 GM/30 ML UDCUP PO SCH ×3 (09:23→20:08)
[2020-08-02] MEDS: amLODIPine 5 MG TABLET PO SCH (09:24)
[2020-08-02] MEDS: FUROSEMIDE 20 MG TABLET PO SCH (09:27)
[2020-08-02 09:51] LABS: ABG Base Excess 2.6 MMOL/L (-2.5-2.5); ABG HCO3 26.5 MMOL/L (20-26); ABG PCO2 66.6 MM HG (35-48); ABG PH 7.274 (7.35-7.45); ABG PO2 57.7 MM HG (80-95)
[2020-08-02] MEDS ORDERED: DOCUSATE SODIUM 100 MG CAPSULE PO SCH (14:46)
[2020-08-02] MEDS: DOCUSATE SODIUM 100 MG CAPSULE PO SCH (20:08)
[2020-08-03] MEDS: ALBUTEROL/IPRATROPIUM 3 ML NEB RESP TX SCH ×4 (00:12→19:25)
[2020-08-03] MEDS: ONDANSETRON 4 MG/2 ML VIAL IV PRN (02:13)
[2020-08-03] MEDS ORDERED: ONDANSETRON 4 MG/2 ML VIAL IV ONE (03:16)
[2020-08-03] MEDS: methylPREDNISolone SOD SUC 40 MG/1 ML VIAL IV SCH ×3 (03:30→17:53)
[2020-08-03] MEDS: INSULIN REGULAR 100 UNIT/ML SUBCUT SCH ×3 (05:50→17:08)
[2020-08-03] MEDS: ALBUMIN 25% 25 GM in PREMIX 1 EACH IV SCH ×2 (06:21→14:00)
[2020-08-03] MEDS: LEVOTHYROXINE 50 MCG TABLET PO SCH (06:21)
[2020-08-03 07:11] LABS: Calcium 9.7 MG/DL (8.5-10.1)
[2020-08-03 07:24] LABS: Basophils % 0.1 % (0.0-0.8); Hematocrit 30.5 VOL% (35.7-47.0); Hemoglobin 8.7 GM/DL (12.0-16.0); Immature Granulocytes % 1.4 %; Immature Granulocytes Absolute 0.15 #; Lymphocytes # 0.4 10*3/uL (1.4-4.0); Lymphocytes % 3.6 % (21.3-54.2); Mean Corpuscular HGB Conc 28.5 GM/DL (32-36); Mean Corpuscular Volume 94.1 FL (87-102); Mean Platelet Volume 10.5 FL (9.6-12.0); Monocytes % 9.6 % (1.7-12.7); Neutrophils % 85.3 % (38.7-73.9); Platelet Count 527 T/CUMM (130-400); Red Blood Count 3.24 MC/CUMM (3.8-5.5); White Blood Count 10.8 T/CUMM (4-12)
[2020-08-03 07:36] LABS: ABG Base Excess 3.8 MMOL/L (-2.5-2.5); ABG HCO3 27.6 MMOL/L (20-26); ABG Oxygen Saturation 84.3 % (95-100); ABG PH 7.362 (7.35-7.45); ABG PO2 55.1 MM HG (80-95)
[2020-08-03 07:37] LABS: Allen Test Positive; Pt O2 Delivery Device BIPAP
[2020-08-03] MEDS: POLYETHYLENE GLYCOL POWDER 17 GM PACK PO SCH ×2 (10:00→21:46)
[2020-08-03] MEDS: ENOXAPARIN 40 MG/0.4 ML SYRINGE SUBCUT SCH (10:00)
[2020-08-03] MEDS: DOCUSATE SODIUM 100 MG CAPSULE PO SCH ×2 (10:01→21:46)
[2020-08-03] MEDS: amLODIPine 5 MG TABLET PO SCH (10:01)
[2020-08-03] MEDS: PANTOPRAZOLE 40 MG TABLET PO SCH (10:01)
[2020-08-03] MEDS: FUROSEMIDE 20 MG TABLET PO SCH (10:01)
[2020-08-03] MEDS: LACTULOSE 20 GM/30 ML UDCUP PO SCH ×4 (10:02→21:54)
[2020-08-03] MEDS: LOSARTAN 25 MG TABLET PO SCH ×2 (14:00→21:46)
[2020-08-03] MEDS: ACETAMINOPHEN 325 MG/10.15 ML UDCUP PO PRN (16:39)
[2020-08-03] MEDS: BUDESONIDE/FORMOTEROL 160-4.5 INHALER 6 GM INH SCH (21:54)
[2020-08-04] MEDS: ALBUTEROL/IPRATROPIUM 3 ML NEB RESP TX SCH ×4 (00:15→19:58)
[2020-08-04] MEDS: methylPREDNISolone SOD SUC 40 MG/1 ML VIAL IV SCH ×3 (01:47→17:48)
[2020-08-04] MEDS: INSULIN REGULAR 100 UNIT/ML SUBCUT SCH ×4 (03:20→18:30)
[2020-08-04 05:47] LABS: Basophils % 0.1 % (0.0-0.8); Hematocrit 28.9 VOL% (35.7-47.0); Hemoglobin 8.5 GM/DL (12.0-16.0); Immature Granulocytes Absolute 0.17 #; Lymphocytes # 0.3 10*3/uL (1.4-4.0); Lymphocytes % 3.8 % (21.3-54.2); Mean Corpuscular HGB Conc 29.4 GM/DL (32-36); Mean Corpuscular Volume 91.7 FL (87-102); Mean Platelet Volume 10.6 FL (9.6-12.0); Monocytes % 9.1 % (1.7-12.7); NRBC # 0.79 10*3/uL; Platelet Count 521 T/CUMM (130-400); Red Blood Count 3.15 MC/CUMM (3.8-5.5); Red Cell Distribution Width 20.2 % (9.3-17.3); White Blood Count 8.3 T/CUMM (4-12)
[2020-08-04 06:02] LABS: Calcium 9.8 MG/DL (8.5-10.1); Osmolality,Calculated 300.1 MOS/KG (273-304)
[2020-08-04 06:22] LABS: Band Neutrophils 1 % (0-10); Hypochromasia 1+; Lymphocytes 1 % (20-55); Microcytosis 1+; Nucleated Red Blood Cells 11 (0-5); Platelet Estimate Adequate; Segmented Neutrophils 91 % (50-85); Total Cells Counted 100
[2020-08-04] MEDS: LEVOTHYROXINE 50 MCG TABLET PO SCH (07:17)
[2020-08-04] MEDS: LACTULOSE 20 GM/30 ML UDCUP PO SCH ×4 (08:36→20:41)
[2020-08-04] MEDS: POLYETHYLENE GLYCOL POWDER 17 GM PACK PO SCH ×2 (08:37→20:41)
[2020-08-04] MEDS: ENOXAPARIN 40 MG/0.4 ML SYRINGE SUBCUT SCH (08:37)
[2020-08-04] MEDS: FERROUS SULFATE 325 MG TABLET PO SCH (08:38)
[2020-08-04] MEDS: LOSARTAN 25 MG TABLET PO SCH ×2 (08:38→20:42)
[2020-08-04] MEDS: ERGOCALCIFEROL 50,000 UNIT CAPSULE PO SCH (08:38)
[2020-08-04] MEDS: FUROSEMIDE 20 MG TABLET PO SCH (08:38)
[2020-08-04] MEDS: PANTOPRAZOLE 40 MG TABLET PO SCH (08:38)
[2020-08-04] MEDS: DOCUSATE SODIUM 100 MG CAPSULE PO SCH ×2 (08:39→20:42)
[2020-08-04] MEDS: amLODIPine 5 MG TABLET PO SCH (08:39)
[2020-08-04] MEDS: BUDESONIDE/FORMOTEROL 160-4.5 INHALER 6 GM INH SCH ×2 (08:39→20:47)
[2020-08-05] MEDS: ALBUTEROL/IPRATROPIUM 3 ML NEB RESP TX SCH ×4 (00:40→19:45)
[2020-08-05] MEDS: INSULIN REGULAR 100 UNIT/ML SUBCUT SCH ×4 (01:10→17:58)
[2020-08-05] MEDS: methylPREDNISolone SOD SUC 40 MG/1 ML VIAL IV SCH ×3 (01:11→17:50)
[2020-08-05] MEDS: LEVOTHYROXINE 50 MCG TABLET PO SCH (05:48)
[2020-08-05 07:34] LABS: Basophils % 0.2 % (0.0-0.8); Hematocrit 29.7 VOL% (35.7-47.0); Hemoglobin 8.6 GM/DL (12.0-16.0); Immature Granulocytes % 1.9 %; Immature Granulocytes Absolute 0.17 #; Lymphocytes # 0.3 10*3/uL (1.4-4.0); Lymphocytes % 3.4 % (21.3-54.2); Mean Corpuscular Volume 92.5 FL (87-102); Mean Platelet Volume 10.6 FL (9.6-12.0); Monocytes % 9.7 % (1.7-12.7); NRBC # 1.43 10*3/uL; Neutrophils % 84.8 % (38.7-73.9); Platelet Count 522 T/CUMM (130-400); Red Blood Count 3.21 MC/CUMM (3.8-5.5); Red Cell Distribution Width 20.2 % (9.3-17.3); White Blood Count 8.9 T/CUMM (4-12)
[2020-08-05 07:54] LABS: Lymphocytes 2 % (20-55); Nucleated Red Blood Cells 16 (0-5); Segmented Neutrophils 92 % (50-85); Total Cells Counted 100
[2020-08-05 07:55] LABS: Hypochromasia 2+; Microcytosis 1+; Polychromasia Slight
[2020-08-05 07:56] LABS: Platelet Estimate Increased
[2020-08-05 07:57] LABS: Ovalocytes Slight
[2020-08-05 08:04] LABS: Calcium 9.9 MG/DL (8.5-10.1)
[2020-08-05] MEDS: POLYETHYLENE GLYCOL POWDER 17 GM PACK PO SCH ×2 (09:10→20:37)
[2020-08-05] MEDS: ENOXAPARIN 40 MG/0.4 ML SYRINGE SUBCUT SCH (09:10)
[2020-08-05] MEDS: LOSARTAN 25 MG TABLET PO SCH ×2 (09:11→20:37)
[2020-08-05] MEDS: amLODIPine 5 MG TABLET PO SCH (09:11)
[2020-08-05] MEDS: PANTOPRAZOLE 40 MG TABLET PO SCH (09:11)
[2020-08-05] MEDS: FUROSEMIDE 20 MG TABLET PO SCH (09:11)
[2020-08-05] MEDS: DOCUSATE SODIUM 100 MG CAPSULE PO SCH ×2 (09:11→20:37)
[2020-08-05] MEDS: LACTULOSE 20 GM/30 ML UDCUP PO SCH ×4 (09:12→20:37)
[2020-08-05] MEDS: FERROUS SULFATE 325 MG TABLET PO SCH (09:12)
[2020-08-05] MEDS: BUDESONIDE/FORMOTEROL 160-4.5 INHALER 6 GM INH SCH ×2 (09:13→20:37)
[2020-08-05] MEDS: MEGESTROL 40 MG TABLET PO SCH (17:50)
[2020-08-06] MEDS: ALBUTEROL/IPRATROPIUM 3 ML NEB RESP TX SCH ×4 (00:20→19:22)
[2020-08-06] MEDS: INSULIN REGULAR 100 UNIT/ML SUBCUT SCH ×4 (00:27→17:31)
[2020-08-06] MEDS: methylPREDNISolone SOD SUC 40 MG/1 ML VIAL IV SCH ×3 (02:13→18:10)
[2020-08-06 02:55] LABS: ABG Base Excess 7.8 MMOL/L (-2.5-2.5); ABG HCO3 31.3 MMOL/L (20-26); ABG PCO2 63.4 MM HG (35-48); ABG PH 7.351 (7.35-7.45); ABG TCO2 32.8 MMOL/L (23-27)
[2020-08-06] MEDS: LEVOTHYROXINE 50 MCG TABLET PO SCH (05:24)
[2020-08-06 06:10] LABS: Albumin 4.3 G/DL (3.4-5.0); Osmolality,Calculated 301.1 MOS/KG (273-304); Total Protein 7.3 G/DL (6.4-8.3)
[2020-08-06 06:19] LABS: Basophils % 0.2 % (0.0-0.8); Hematocrit 31.1 VOL% (35.7-47.0); Immature Granulocytes Absolute 0.23 #; Lymphocytes # 0.4 10*3/uL (1.4-4.0); Lymphocytes % 3.5 % (21.3-54.2); Mean Corpuscular HGB Conc 29.3 GM/DL (32-36); Mean Corpuscular Volume 91.7 FL (87-102); Mean Platelet Volume 10.4 FL (9.6-12.0); Monocytes % 8.7 % (1.7-12.7); NRBC # 1.44 10*3/uL; Neutrophils % 85.6 % (38.7-73.9); Platelet Count 558 T/CUMM (130-400); Red Blood Count 3.39 MC/CUMM (3.8-5.5); Red Cell Distribution Width 20.1 % (9.3-17.3); White Blood Count 11.3 T/CUMM (4-12)
[2020-08-06 06:20] LABS: Hemoglobin 9.1 GM/DL (12.0-16.0)
[2020-08-06 06:27] LABS: Band Neutrophils 1 % (0-10); Hypochromasia Slight; Lymphocytes 13 % (20-55); Nucleated Red Blood Cells 21 (0-5); Platelet Estimate Increased; Segmented Neutrophils 78 % (50-85); Total Cells Counted 100
[2020-08-06] MEDS: BUDESONIDE 0.25 MG/2 ML NEB RESP TX SCH ×2 (07:19→19:22)
[2020-08-06] MEDS: DOCUSATE SODIUM 100 MG CAPSULE PO SCH ×2 (08:58→20:45)
[2020-08-06] MEDS: amLODIPine 5 MG TABLET PO SCH (08:58)
[2020-08-06] MEDS: ENOXAPARIN 40 MG/0.4 ML SYRINGE SUBCUT SCH (08:58)
[2020-08-06] MEDS: POLYETHYLENE GLYCOL POWDER 17 GM PACK PO SCH ×2 (08:59→20:45)
[2020-08-06] MEDS: LACTULOSE 20 GM/30 ML UDCUP PO SCH ×4 (08:59→20:46)
[2020-08-06] MEDS: PANTOPRAZOLE 40 MG TABLET PO SCH (08:59)
[2020-08-06] MEDS: FUROSEMIDE 20 MG TABLET PO SCH (08:59)
[2020-08-06] MEDS: LOSARTAN 25 MG TABLET PO SCH ×2 (08:59→20:45)
[2020-08-06] MEDS: MEGESTROL 40 MG TABLET PO SCH ×2 (08:59→17:31)
[2020-08-06] MEDS: FERROUS SULFATE 325 MG TABLET PO SCH (08:59)
[2020-08-07] MEDS: ALBUTEROL/IPRATROPIUM 3 ML NEB RESP TX SCH ×4 (00:18→19:54)
[2020-08-07] MEDS: methylPREDNISolone SOD SUC 40 MG/1 ML VIAL IV SCH ×3 (01:56→17:35)
[2020-08-07] MEDS: INSULIN REGULAR 100 UNIT/ML SUBCUT SCH ×4 (02:26→17:35)
[2020-08-07] MEDS: LEVOTHYROXINE 50 MCG TABLET PO SCH (06:24)
[2020-08-07] MEDS: BUDESONIDE 0.25 MG/2 ML NEB RESP TX SCH (07:35)
[2020-08-07] MEDS: LOSARTAN 25 MG TABLET PO SCH ×2 (08:01→21:06)
[2020-08-07] MEDS: amLODIPine 5 MG TABLET PO SCH (08:01)
[2020-08-07] MEDS: LACTULOSE 20 GM/30 ML UDCUP PO SCH ×4 (08:01→21:06)
[2020-08-07] MEDS: FERROUS SULFATE 325 MG TABLET PO SCH (08:01)
[2020-08-07] MEDS: FUROSEMIDE 20 MG TABLET PO SCH (08:01)
[2020-08-07] MEDS: ENOXAPARIN 40 MG/0.4 ML SYRINGE SUBCUT SCH (08:01)
[2020-08-07] MEDS: MEGESTROL 40 MG TABLET PO SCH ×2 (08:01→16:58)
[2020-08-07] MEDS: DOCUSATE SODIUM 100 MG CAPSULE PO SCH ×2 (08:01→21:05)
[2020-08-07] MEDS: POLYETHYLENE GLYCOL POWDER 17 GM PACK PO SCH ×2 (08:01→21:05)
[2020-08-07] MEDS: PANTOPRAZOLE 40 MG TABLET PO SCH (08:01)
[2020-08-07] MEDS: ERGOCALCIFEROL 50,000 UNIT CAPSULE PO SCH (08:02)
[2020-08-07] MEDS: amLODIPine 10 MG TABLET PO SCH (09:27)
[2020-08-08] MEDS: BUDESONIDE 0.25 MG/2 ML NEB RESP TX SCH ×3 (01:30→18:54)
[2020-08-08] MEDS: ALBUTEROL/IPRATROPIUM 3 ML NEB RESP TX SCH ×4 (01:30→18:54)
[2020-08-08] MEDS: methylPREDNISolone SOD SUC 40 MG/1 ML VIAL IV SCH ×3 (01:36→18:04)
[2020-08-08] MEDS: INSULIN REGULAR 100 UNIT/ML SUBCUT SCH ×4 (02:28→18:03)
[2020-08-08 05:43] LABS: Basophils % 0.1 % (0.0-0.8); Hemoglobin 8.7 GM/DL (12.0-16.0); Immature Granulocytes % 3.3 %; Immature Granulocytes Absolute 0.33 #; Lymphocytes # 0.2 10*3/uL (1.4-4.0); Lymphocytes % 1.5 % (21.3-54.2); Mean Platelet Volume 10.2 FL (9.6-12.0); Monocytes % 8.3 % (1.7-12.7); NRBC # 0.35 10*3/uL; Neutrophils % 86.8 % (38.7-73.9); Platelet Count 495 T/CUMM (130-400); Red Blood Count 3.26 MC/CUMM (3.8-5.5); White Blood Count 10.1 T/CUMM (4-12)
[2020-08-08] MEDS: LEVOTHYROXINE 50 MCG TABLET PO SCH (05:55)
[2020-08-08 06:07] LABS: Calcium 9.5 MG/DL (8.5-10.1); Osmolality,Calculated 297.3 MOS/KG (273-304)
[2020-08-08 06:22] LABS: Band Neutrophils 6 % (0-10); Lymphocytes 3 % (20-55); Nucleated Red Blood Cells 4 (0-5); Segmented Neutrophils 80 % (50-85); Total Cells Counted 100
[2020-08-08 06:23] LABS: Anisocytosis 2+; Ovalocytes Few; Platelet Estimate Normal; Poikilocytosis Slight; Polychromasia Slight; Stomatocytes Few; Target Cells Few
[2020-08-08] MEDS: FUROSEMIDE 20 MG TABLET PO SCH (08:44)
[2020-08-08] MEDS: POLYETHYLENE GLYCOL POWDER 17 GM PACK PO SCH ×2 (08:44→21:26)
[2020-08-08] MEDS: amLODIPine 10 MG TABLET PO SCH (08:44)
[2020-08-08] MEDS: MEGESTROL 40 MG TABLET PO SCH ×2 (08:44→18:03)
[2020-08-08] MEDS: ENOXAPARIN 40 MG/0.4 ML SYRINGE SUBCUT SCH (08:45)
[2020-08-08] MEDS: LOSARTAN 25 MG TABLET PO SCH ×2 (08:45→21:26)
[2020-08-08] MEDS: DOCUSATE SODIUM 100 MG CAPSULE PO SCH ×2 (08:45→21:26)
[2020-08-08] MEDS: LACTULOSE 20 GM/30 ML UDCUP PO SCH ×4 (08:45→21:26)
[2020-08-08] MEDS: FERROUS SULFATE 325 MG TABLET PO SCH (08:45)
[2020-08-08] MEDS: PANTOPRAZOLE 40 MG TABLET PO SCH (08:55)
[2020-08-09] MEDS: INSULIN REGULAR 100 UNIT/ML SUBCUT SCH ×4 (00:19→17:01)
[2020-08-09] MEDS: ALBUTEROL/IPRATROPIUM 3 ML NEB RESP TX SCH ×4 (01:22→19:40)
[2020-08-09] MEDS: methylPREDNISolone SOD SUC 40 MG/1 ML VIAL IV SCH ×3 (02:22→17:01)
[2020-08-09] MEDS: LEVOTHYROXINE 50 MCG TABLET PO SCH (05:53)
[2020-08-09] MEDS: BUDESONIDE 0.25 MG/2 ML NEB RESP TX SCH ×2 (07:10→19:40)
[2020-08-09] MEDS: POLYETHYLENE GLYCOL POWDER 17 GM PACK PO SCH ×2 (09:43→22:11)
[2020-08-09] MEDS: LACTULOSE 20 GM/30 ML UDCUP PO SCH ×4 (09:45→22:10)
[2020-08-09] MEDS: MEGESTROL 40 MG TABLET PO SCH ×2 (09:45→17:01)
[2020-08-09] MEDS: FERROUS SULFATE 325 MG TABLET PO SCH (09:45)
[2020-08-09] MEDS: amLODIPine 10 MG TABLET PO SCH (09:45)
[2020-08-09] MEDS: PANTOPRAZOLE 40 MG TABLET PO SCH (09:45)
[2020-08-09] MEDS: LOSARTAN 25 MG TABLET PO SCH ×2 (09:45→22:11)
[2020-08-09] MEDS: DOCUSATE SODIUM 100 MG CAPSULE PO SCH ×2 (09:45→22:11)
[2020-08-09] MEDS: FUROSEMIDE 20 MG TABLET PO SCH (09:46)
[2020-08-09] MEDS: ENOXAPARIN 40 MG/0.4 ML SYRINGE SUBCUT SCH (09:46)
[2020-08-10] MEDS: INSULIN REGULAR 100 UNIT/ML SUBCUT SCH ×4 (00:14→17:06)
[2020-08-10] MEDS: ALBUTEROL/IPRATROPIUM 3 ML NEB RESP TX SCH ×4 (01:02→18:44)
[2020-08-10] MEDS: methylPREDNISolone SOD SUC 40 MG/1 ML VIAL IV SCH ×3 (01:40→17:37)
[2020-08-10] MEDS: LEVOTHYROXINE 50 MCG TABLET PO SCH (05:44)
[2020-08-10] MEDS: BUDESONIDE 0.25 MG/2 ML NEB RESP TX SCH ×2 (07:06→18:44)
[2020-08-10] MEDS: DOCUSATE SODIUM 100 MG CAPSULE PO SCH ×2 (10:42→22:01)
[2020-08-10] MEDS: amLODIPine 10 MG TABLET PO SCH (10:42)
[2020-08-10] MEDS: LOSARTAN 25 MG TABLET PO SCH ×2 (10:42→22:01)
[2020-08-10] MEDS: FERROUS SULFATE 325 MG TABLET PO SCH (10:42)
[2020-08-10] MEDS: MEGESTROL 40 MG TABLET PO SCH ×2 (10:42→17:06)
[2020-08-10] MEDS: FUROSEMIDE 20 MG TABLET PO SCH (10:42)
[2020-08-10] MEDS: PANTOPRAZOLE 40 MG TABLET PO SCH (10:42)
[2020-08-10] MEDS: LACTULOSE 20 GM/30 ML UDCUP PO SCH ×4 (10:42→22:01)
[2020-08-10] MEDS: ENOXAPARIN 40 MG/0.4 ML SYRINGE SUBCUT SCH (10:43)
[2020-08-10] MEDS: POLYETHYLENE GLYCOL POWDER 17 GM PACK PO SCH ×2 (10:43→21:59)
[2020-08-10] MEDS: MELATONIN 3 MG TABLET PO PRN (22:03)
[2020-08-11] MEDS: ALBUTEROL/IPRATROPIUM 3 ML NEB RESP TX SCH ×4 (00:42→19:04)
[2020-08-11] MEDS: INSULIN REGULAR 100 UNIT/ML SUBCUT SCH ×4 (01:05→17:12)
[2020-08-11] MEDS: methylPREDNISolone SOD SUC 40 MG/1 ML VIAL IV SCH ×3 (02:17→17:12)
[2020-08-11] MEDS: LEVOTHYROXINE 50 MCG TABLET PO SCH (07:03)
[2020-08-11] MEDS: BUDESONIDE 0.25 MG/2 ML NEB RESP TX SCH ×2 (08:40→19:04)
[2020-08-11] MEDS: LACTULOSE 20 GM/30 ML UDCUP PO SCH ×4 (09:36→20:42)
[2020-08-11] MEDS: MEGESTROL 40 MG TABLET PO SCH ×2 (09:37→16:57)
[2020-08-11] MEDS: ENOXAPARIN 40 MG/0.4 ML SYRINGE SUBCUT SCH (09:37)
[2020-08-11] MEDS: FERROUS SULFATE 325 MG TABLET PO SCH (09:37)
[2020-08-11] MEDS: DOCUSATE SODIUM 100 MG CAPSULE PO SCH ×2 (09:37→20:43)
[2020-08-11] MEDS: amLODIPine 10 MG TABLET PO SCH (09:37)
[2020-08-11] MEDS: FUROSEMIDE 20 MG TABLET PO SCH (09:37)
[2020-08-11] MEDS: LOSARTAN 25 MG TABLET PO SCH ×2 (09:38→20:43)
[2020-08-11] MEDS: PANTOPRAZOLE 40 MG TABLET PO SCH (09:38)
[2020-08-11] MEDS: ERGOCALCIFEROL 50,000 UNIT CAPSULE PO SCH (09:38)
[2020-08-11] MEDS: POLYETHYLENE GLYCOL POWDER 17 GM PACK PO SCH ×2 (09:39→20:43)
[2020-08-11] MEDS: ACETAMINOPHEN 325 MG/10.15 ML UDCUP PO PRN (17:22)
[2020-08-11] MEDS: KETOROLAC 15 MG/1 ML VIAL IV SCH ×2 (18:33→22:25)
[2020-08-12] MEDS: ALBUTEROL/IPRATROPIUM 3 ML NEB RESP TX SCH ×2 (00:05→07:40)
[2020-08-12] MEDS: INSULIN REGULAR 100 UNIT/ML SUBCUT SCH ×2 (00:07→06:06)
[2020-08-12] MEDS: methylPREDNISolone SOD SUC 40 MG/1 ML VIAL IV SCH ×2 (01:48→09:27)
[2020-08-12 05:11] LABS: Basophils % 0.1 % (0.0-0.8); Hematocrit 30.5 VOL% (35.7-47.0); Hemoglobin 9.3 GM/DL (12.0-16.0); Immature Granulocytes % 2.3 %; Immature Granulocytes Absolute 0.32 #; Lymphocytes # 0.4 10*3/uL (1.4-4.0); Lymphocytes % 2.8 % (21.3-54.2); Mean Corpuscular HGB Conc 30.5 GM/DL (32-36); Mean Corpuscular Volume 87.9 FL (87-102); Mean Platelet Volume 9.5 FL (9.6-12.0); Monocytes % 5.9 % (1.7-12.7); Neutrophils % 88.9 % (38.7-73.9); Platelet Count 407 T/CUMM (130-400); Red Blood Count 3.47 MC/CUMM (3.8-5.5); White Blood Count 13.8 T/CUMM (4-12)
[2020-08-12 05:33] LABS: Hypochromasia 1+; Nucleated Red Blood Cells 1 (0-5); Platelet Estimate Increased; Segmented Neutrophils 96 % (50-85); Total Cells Counted 100
[2020-08-12] MEDS ORDERED: ONDANSETRON 4 MG TABLET PO PRN (05:33)
[2020-08-12 05:35] LABS: Osmolality,Calculated 280.8 MOS/KG (273-304)
[2020-08-12] MEDS: LEVOTHYROXINE 50 MCG TABLET PO SCH (05:45)
[2020-08-12] MEDS: BUDESONIDE 0.25 MG/2 ML NEB RESP TX SCH (07:40)
[2020-08-12 08:30] VITALS: BP 130/65
[2020-08-12] MEDS: FUROSEMIDE 20 MG TABLET PO SCH (09:00)
[2020-08-12] MEDS: FERROUS SULFATE 325 MG TABLET PO SCH (09:00)
[2020-08-12] MEDS: DOCUSATE SODIUM 100 MG CAPSULE PO SCH (09:00)
[2020-08-12] MEDS: MEGESTROL 40 MG TABLET PO SCH (09:00)
[2020-08-12] MEDS: LOSARTAN 25 MG TABLET PO SCH (09:00)
[2020-08-12] MEDS: amLODIPine 10 MG TABLET PO SCH (09:00)
[2020-08-12] MEDS: LACTULOSE 20 GM/30 ML UDCUP PO SCH (09:01)
[2020-08-12] MEDS: ENOXAPARIN 40 MG/0.4 ML SYRINGE SUBCUT SCH (09:01)
[2020-08-12] MEDS: PANTOPRAZOLE 40 MG TABLET PO SCH (09:01)
[2020-08-12] MEDS: POLYETHYLENE GLYCOL POWDER 17 GM PACK PO SCH (09:02)
[2020-08-12] MEDS: KETOROLAC 15 MG/1 ML VIAL IV SCH (09:27)
== END 2020-08-12 10:30 | DRG 208 ==
LOC: EDBD → EDUNIT# → N.ED 15:53 → SUATTDRO 21:34 → N.EDINP 21:34 → N.ICU 07-25 01:47 → N.3E 07-27 11:20 → N.ICU 07-31 13:28 → N.5E 08-03 16:10
PROVIDERS: ADMIT Internal Medicine; ATTEND Internal Medicine

== ENCOUNTER 2020-08-29 17:49 | Inpatient (IN) ==
[2020-08-29] MEDS ORDERED: ALBUTEROL 2.5 MG/3 ML NEB RESP TX STA (18:13)
[2020-08-29] MEDS ORDERED: FUROSEMIDE 40 MG/4 ML VIAL IV STA (18:13)
[2020-08-29] MEDS ORDERED: DEXAMETHASONE 10 MG/1 ML VIAL ONE (18:31)
[2020-08-29] MEDS: DEXAMETHASONE 10 MG/1 ML VIAL IV SCH (18:50)
[2020-08-29 19:12] LABS: ABG Base Excess 3.3 MMOL/L (-2.5-2.5); ABG HCO3 27.4 MMOL/L (20-26); ABG PCO2 62.7 MM HG (35-48); ABG PH 7.301 (7.35-7.45); ABG TCO2 28.9 MMOL/L (23-27); Allen Test Positive
[2020-08-29 19:23] LABS: INR 1.1; PT Patient Result 11.9 SECS (9.8-11.9); Partial Thromboplastin Time 25.6 SECS (23.9-33.8)
[2020-08-29 19:25] LABS: Basophils # 0.1 10*3/uL (0.0-0.2); Basophils % 1.2 % (0.0-0.8); Eosinophils # 0.6 10*3/uL (0.0-0.87); Eosinophils % 6.9 % (0.00-10.9); Hematocrit 30.2 VOL% (35.7-47.0); Hemoglobin 8.7 GM/DL (12.0-16.0); Immature Granulocytes % 8.5 %; Immature Granulocytes Absolute 0.79 #; Lymphocytes # 2.9 10*3/uL (1.4-4.0); Lymphocytes % 30.5 % (21.3-54.2); Mean Corpuscular HGB Conc 28.8 GM/DL (32-36); Mean Corpuscular Volume 93.2 FL (87-102); Mean Platelet Volume 10.4 FL (9.6-12.0); Monocytes % 10.2 % (1.7-12.7); NRBC # 0.05 10*3/uL; Neutrophils % 42.7 % (38.7-73.9); Platelet Count 796 T/CUMM (130-400); Red Blood Count 3.24 MC/CUMM (3.8-5.5); Red Cell Distribution Width 19.5 % (9.3-17.3); White Blood Count 9.3 T/CUMM (4-12)
[2020-08-29 19:26] LABS: Calcium 8.7 MG/DL (8.5-10.1); Potassium 4.3 MMOL/L (3.5-5.1)
[2020-08-29] MEDS ORDERED: AZITHROMYCIN INJ 500 MG in SODIUM CHLORIDE 0.9% 250 ML IV STA (20:16)
[2020-08-29] MEDS ORDERED: cefTRIAXone 1,000 MG in SODIUM CHLORIDE 0.9% 100 ML IV STA (20:16)
[2020-08-29 20:59] LABS: Band Neutrophils 1 % (0-10); Eosinophils 8 % (0-10); Hypochromasia 1+; Lymphocytes 31 % (20-55); Nucleated Red Blood Cells 1 (0-5); Segmented Neutrophils 56 % (50-85); Total Cells Counted 100
[2020-08-29 21:00] LABS: Platelet Estimate Increased; Poikilocytosis 1+; Polychromasia Few; Reactive Lymphocytes 1+
[2020-08-29] MEDS ORDERED: ACETAMINOPHEN 325 MG TABLET PO PRN (21:10)
[2020-08-29] MEDS ORDERED: ONDANSETRON 4 MG/2 ML VIAL IV PRN (21:10)
[2020-08-30] MEDS: DEXAMETHASONE 10 MG/1 ML VIAL IV SCH (09:20)
[2020-08-30] MEDS: PANTOPRAZOLE 40 MG TABLET PO SCH (09:20)
[2020-08-30] MEDS ORDERED: GLUCAGON 1 MG VIAL IM PRN (17:45)
[2020-08-30] MEDS: INSULIN REGULAR 100 UNIT/ML SUBCUT SCH (18:15)
[2020-08-30] MEDS: cefTRIAXone 1,000 MG in SYRINGE 1 EACH IV SCH (18:15)
[2020-08-30 18:23] LABS: Bacteria,Urine Occasional /HPF (Few); Bilirubin,Urine Negative (Negative); Blood, Urine Negative (Negative); Glucose,Urine (UA) Negative (Negative); Hyaline Casts,Urine 65 /LPF (0-3); Ketones,Urine Negative (Negative); Mucus,Urine Occasional /LPF (Occasional); Nitrite,Urine Negative (Negative); Protein,Urine 30 MG/DL; RBC,Urine 2 /HPF (0-4); Squamous Epithelial Cell,Urine Occasional /HPF (0-10); Urine Appearance CLOUDY (Clear); Urine Color Yellow (Yellow); Urine Specific Gravity 1.018 (1.001-1.035); Urine Urobilinogen < 2.0 EU/DL (0.2-1.0); WBC,Urine 2 /HPF (0-6)
[2020-08-30] MEDS: BUDESONIDE 0.25 MG/2 ML NEB RESP TX SCH (19:10)
[2020-08-30] MEDS: ALBUTEROL/IPRATROPIUM 3 ML NEB RESP TX SCH (19:10)
[2020-08-30] MEDS: QUEtiapine 25 MG TABLET PO SCH (21:15)
[2020-08-30] MEDS: AZITHROMYCIN INJ 500 MG in SODIUM CHLORIDE 0.9% 250 ML IV SCH (21:15)
[2020-08-30] MEDS: levETIRAcetam 250 MG TABLET PO SCH (21:15)
[2020-08-30] MEDS: NON-FORMULARY MEDICATION (Camphor-Methyl Salicyl-Menthol [Salonpas] 3.1-10-6 % Adhesive Pa TOP SCH (21:16)
[2020-08-31] MEDS: INSULIN REGULAR 100 UNIT/ML SUBCUT SCH ×4 (00:02→17:42)
[2020-08-31] MEDS: ALBUTEROL/IPRATROPIUM 3 ML NEB RESP TX SCH ×4 (00:16→19:34)
[2020-08-31] MEDS: LEVOTHYROXINE 50 MCG TABLET PO SCH (06:28)
[2020-08-31 06:50] LABS: Basophils # 0.1 10*3/uL (0.0-0.2); Basophils % 0.6 % (0.0-0.8); Hematocrit 31.6 VOL% (35.7-47.0); Hemoglobin 8.6 GM/DL (12.0-16.0); Lymphocytes % 14.7 % (21.3-54.2); Mean Corpuscular HGB Conc 27.2 GM/DL (32-36); Mean Corpuscular Volume 96.9 FL (87-102); Mean Platelet Volume 10.1 FL (9.6-12.0); Monocytes % 13.8 % (1.7-12.7); NRBC # 0.11 10*3/uL; Neutrophils % 58.9 % (38.7-73.9); Platelet Count 774 T/CUMM (130-400); Red Blood Count 3.26 MC/CUMM (3.8-5.5); Red Cell Distribution Width 19.2 % (9.3-17.3); White Blood Count 13.4 T/CUMM (4-12)
[2020-08-31 07:06] LABS: Calcium 8.9 MG/DL (8.5-10.1); Osmolality,Calculated 286.3 MOS/KG (273-304); Potassium 4.8 MMOL/L (3.5-5.1); Thyroid Stimulating Hormone 0.65 uIU/ml (0.358-3.74)
[2020-08-31] MEDS: BUDESONIDE 0.25 MG/2 ML NEB RESP TX SCH ×2 (07:10→19:34)
[2020-08-31] MEDS: POTASSIUM CHLORIDE 10 MEQ TABLET PO SCH ×2 (08:15→13:05)
[2020-08-31] MEDS: QUEtiapine 25 MG TABLET PO SCH ×3 (08:15→21:12)
[2020-08-31] MEDS: DEXAMETHASONE 10 MG/1 ML VIAL IV SCH (08:15)
[2020-08-31] MEDS: levETIRAcetam 250 MG TABLET PO SCH ×4 (08:15→21:12)
[2020-08-31] MEDS: PANTOPRAZOLE 40 MG TABLET PO SCH ×2 (08:15→12:40)
[2020-08-31] MEDS: FERROUS SULFATE 325 MG TABLET PO SCH ×2 (08:15→13:05)
[2020-08-31 09:00] LABS: Lymphocytes 16 % (20-55); Metamyelocytes 5 %; Platelet Estimate Increased; Segmented Neutrophils 67 % (50-85); Total Cells Counted 100
[2020-08-31] MEDS: FUROSEMIDE 20 MG TABLET PO SCH (12:40)
[2020-08-31 12:56] LABS: ABG Base Excess 3.8 MMOL/L (-2.5-2.5); ABG HCO3 27.9 MMOL/L (20-26); ABG Oxygen Saturation 99.7 % (95-100); ABG PH 7.236 (7.35-7.45); ABG TCO2 31.3 MMOL/L (23-27)
[2020-08-31 12:58] LABS: ABG PCO2 77.9 MM HG (35-48)
[2020-08-31] MEDS: cefTRIAXone 1,000 MG in SYRINGE 1 EACH IV SCH (17:25)
[2020-08-31] MEDS: HYDROmorphone 2 MG/1 ML VIAL IV PRN (17:36)
[2020-08-31] MEDS: AZITHROMYCIN INJ 500 MG in SODIUM CHLORIDE 0.9% 250 ML IV SCH (21:09)
[2020-08-31] MEDS: NON-FORMULARY MEDICATION (Camphor-Methyl Salicyl-Menthol [Salonpas] 3.1-10-6 % Adhesive Pa TOP SCH (21:12)
[2020-09-01] MEDS: ALBUTEROL/IPRATROPIUM 3 ML NEB RESP TX SCH ×4 (00:43→20:25)
[2020-09-01] MEDS: INSULIN REGULAR 100 UNIT/ML SUBCUT SCH ×4 (00:57→18:06)
[2020-09-01] MEDS: LEVOTHYROXINE 50 MCG TABLET PO SCH (06:45)
[2020-09-01] MEDS: BUDESONIDE 0.25 MG/2 ML NEB RESP TX SCH ×2 (07:57→20:25)
[2020-09-01] MEDS: FERROUS SULFATE 325 MG TABLET PO SCH (09:31)
[2020-09-01] MEDS: POTASSIUM CHLORIDE 10 MEQ TABLET PO SCH (09:31)
[2020-09-01] MEDS: QUEtiapine 25 MG TABLET PO SCH ×2 (09:31→22:21)
[2020-09-01] MEDS: levETIRAcetam 250 MG TABLET PO SCH ×3 (09:31→22:21)
[2020-09-01] MEDS: FUROSEMIDE 20 MG TABLET PO SCH (09:31)
[2020-09-01] MEDS: PANTOPRAZOLE 40 MG TABLET PO SCH (09:31)
[2020-09-01] MEDS: DEXAMETHASONE 10 MG/1 ML VIAL IV SCH (09:32)
[2020-09-01] MEDS: HYDROmorphone 2 MG/1 ML VIAL IV PRN (16:14)
[2020-09-01] MEDS: cefTRIAXone 1,000 MG in SYRINGE 1 EACH IV SCH (18:05)
[2020-09-01] MEDS: KETOROLAC 15 MG/1 ML VIAL IV SCH (18:08)
[2020-09-01] MEDS: AZITHROMYCIN 250 MG TABLET PO SCH (22:21)
[2020-09-01] MEDS: methylPREDNISolone SOD SUC 40 MG/1 ML VIAL IV SCH (22:21)
[2020-09-02] MEDS: KETOROLAC 15 MG/1 ML VIAL IV SCH ×4 (00:21→17:23)
[2020-09-02] MEDS: ALBUTEROL/IPRATROPIUM 3 ML NEB RESP TX SCH ×4 (00:28→19:56)
[2020-09-02] MEDS: INSULIN REGULAR 100 UNIT/ML SUBCUT SCH ×4 (00:30→17:22)
[2020-09-02 06:25] LABS: Calcium 8.9 MG/DL (8.5-10.1); Osmolality,Calculated 294.1 MOS/KG (273-304); Potassium 5.3 MMOL/L (3.5-5.1)
[2020-09-02 06:28] LABS: Basophils % 0.3 % (0.0-0.8); Hematocrit 29.7 VOL% (35.7-47.0); Hemoglobin 8.3 GM/DL (12.0-16.0); Immature Granulocytes % 14.1 %; Immature Granulocytes Absolute 1.62 #; Lymphocytes # 1.3 10*3/uL (1.4-4.0); Lymphocytes % 11.5 % (21.3-54.2); Mean Corpuscular HGB Conc 27.9 GM/DL (32-36); Mean Platelet Volume 10.4 FL (9.6-12.0); Monocytes % 6.9 % (1.7-12.7); Neutrophils % 67.2 % (38.7-73.9); Platelet Count 616 T/CUMM (130-400); Red Blood Count 3.16 MC/CUMM (3.8-5.5); White Blood Count 11.5 T/CUMM (4-12)
[2020-09-02 06:32] LABS: Hypochromasia 2+; Lymphocytes 13 % (20-55); Microcytosis 1+; Ovalocytes Slight; Platelet Estimate Increased; Segmented Neutrophils 80 % (50-85); Total Cells Counted 100
[2020-09-02] MEDS: LEVOTHYROXINE 50 MCG TABLET PO SCH (06:55)
[2020-09-02] MEDS: BUDESONIDE 0.25 MG/2 ML NEB RESP TX SCH ×2 (07:43→19:56)
[2020-09-02] MEDS: POTASSIUM CHLORIDE 10 MEQ TABLET PO SCH (08:27)
[2020-09-02] MEDS: FUROSEMIDE 20 MG TABLET PO SCH (08:27)
[2020-09-02] MEDS: PANTOPRAZOLE 40 MG TABLET PO SCH (08:27)
[2020-09-02] MEDS: levETIRAcetam 250 MG TABLET PO SCH ×3 (08:27→22:23)
[2020-09-02] MEDS: FERROUS SULFATE 325 MG TABLET PO SCH (08:27)
[2020-09-02] MEDS: QUEtiapine 25 MG TABLET PO SCH (08:27)
[2020-09-02] MEDS: methylPREDNISolone SOD SUC 40 MG/1 ML VIAL IV SCH ×2 (08:28→22:23)
[2020-09-02] MEDS: cefTRIAXone 1,000 MG in SYRINGE 1 EACH IV SCH (17:23)
[2020-09-02] MEDS: FAMOTIDINE 20 MG TABLET PO SCH (22:23)
[2020-09-02] MEDS: AZITHROMYCIN 250 MG TABLET PO SCH (22:26)
[2020-09-03] MEDS: INSULIN REGULAR 100 UNIT/ML SUBCUT SCH ×3 (00:10→12:07)
[2020-09-03] MEDS: KETOROLAC 15 MG/1 ML VIAL IV SCH ×3 (00:25→12:07)
[2020-09-03] MEDS: ALBUTEROL/IPRATROPIUM 3 ML NEB RESP TX SCH ×3 (01:40→12:53)
[2020-09-03] MEDS: LEVOTHYROXINE 50 MCG TABLET PO SCH (06:59)
[2020-09-03] MEDS: BUDESONIDE 0.25 MG/2 ML NEB RESP TX SCH (07:45)
[2020-09-03] MEDS: methylPREDNISolone SOD SUC 40 MG/1 ML VIAL IV SCH (08:41)
[2020-09-03] MEDS: FAMOTIDINE 20 MG TABLET PO SCH (08:41)
[2020-09-03] MEDS: levETIRAcetam 250 MG TABLET PO SCH (08:41)
[2020-09-03] MEDS: FUROSEMIDE 20 MG TABLET PO SCH (08:41)
[2020-09-03 12:00] VITALS: BP 133/73
== END 2020-09-03 19:12 | DRG 193 ==
LOC: EDUNIT# → EDBD → N.ED 17:49 → N.EDINP 21:20 → N.5E 23:21
PROVIDERS: ADMIT Internal Medicine; ATTEND Internal Medicine